=== PATIENT | female | born 1970 | race Caucasian/White ===

== ENCOUNTER 2022-08-12 19:21 | Emergency (ER) | payer OTHER, SELFPAY ==
[2022-08-12 19:22] VITALS: BP 164/99; PULSE 78; RESP 16; TEMP 36.6; O2SAT 99; BMI 28.3
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
[2022-08-12] MEDS: Ibuprofen 600 MG Tablet PO (20:30)
== END 2022-08-12 20:40 | disposition home or self-care (01) ==
PROVIDERS: Emergency Provider Emergency Medicine; Visit Provider Emergency Medicine
DX: R22.41 Localized swelling, mass and lump, right lower limb (principal); G89.29 Other chronic pain
CPT/HCPCS: 99283

== ENCOUNTER 2022-09-01 11:00 | Emergency (ER) | payer MEDICARE, SELFPAY ==
[2022-09-01 11:01] VITALS: BP 155/82; PULSE 94; RESP 18; TEMP 36.6; O2SAT 100; BMI 28.4
[2022-09-01 11:04] VITALS: BP 155/82; PULSE 94; RESP 18; TEMP 36.6; O2SAT 100
--- NOTE | 2022-09-01 11:27 | EX.ED.VIS.UR ---
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 History is limited due to this so a video staff interpreter was used on a portable tablet, for which we did not have a stand. Patient indicates that she has been ill for 2 weeks, started having cough congestion sore throat when the weather changed and things are not getting better. She denies any fevers or chills. She has been around sick persons recently including COVID and wants to make sure she does not have that in addition to strep throat. Her left ear has been hurting. Her abdomen hurts when she coughs, but she states that is chronic ever since her herniorrhaphy periumbilical, she has noted no difference is there. No vomiting or diarrhea. She is sometimes incontinent of urine when she coughs a lot. She denies any other urinary symptoms. ROS ROS ED Constitutional Constitutional ED: Denies chills or fever(s) ENT ENT ED: Reports ear pain left, nasal congestion, rhinorrhea and sore throat Cardiovascular Cardiovascular: Denies chest pain or palpitations Respiratory/Chest Respiratory/Chest: Reports cough; Denies dyspnea or sputum Gastrointestinal Gastrointestinal: Reports abdominal pain; Denies diarrhea, nausea or vomiting Genitourinary Genitourinary ED: Denies dysuria or hematuria Musculoskeletal Musculoskeletal: Denies myalgias or neck pain Integumentary Denies abscess or rash Neurologic Neurologic: Denies headache(s), paresthesias or weakness Psychiatric Psychiatric: Denies depression or suicidal thoughts Endocrine Endocrinology: Denies polydipsia or polyuria PFSH PFSH Medical History no medical history Home Medications amoxicillin 875 mg-potassium clavulanate 125 mg tablet 875 mg PO Q12H #20 TABLETS 09/01/22 [Rx Last Taken Unknown] benzonatate 100 mg capsule 200 mg PO TID PRN PRN Cough #20 CAPSULES 09/01/22 [Rx Last Taken Unknown] Allergy/AdvReac Type Severity Reaction Status Date / Time desloratadine AdvReac Other Verified 08/12/22 20:30 Social History Smoking Status: Never smoker EXAM Physical Exam Const Vital Signs: 09/01/22 11:01 09/01/22 11:04 09/01/22 11:09 Temperature 97.8 F 97.8 F Temperature Source Temporal Temporal Pulse Rate 94 94 Respiratory Rate 18 18 Respiratory Effort Normal Non-Labored Respiratory Pattern Normal Blood Pressure 155/82 H 155/82 H Blood Pressure Mean 106 106 Pulse Ox 100 100 Oxygen Delivery Method Room Air Room Air Positive well nourished, well developed and obese General Appearance ED: well developed and NAD Nutritional Appearance: obese HEENT Reports moist mucous membranes HEENT Narrative: Left TM erythematous and dulled light reflex without perforation. Right TM is normal. EAC unremarkable bilaterally. Posterior oropharyngeal erythema only. No exudates. normocephalic and atraumatic Throat: Negative for tonsils abnormal Eyes PERRL and EOMs intact bilaterally Neck no lymphadenopathy, supple and no meningeal signs Resp normal respiratory effort and clear to auscultation bilaterally Cardio no murmurs Rate: regular rate Rhythm: regular rhythm GI non-tender, non-distended and no masses Neuro oriented x3, CN's II-XII intact bilaterally and no sensory deficits noted Sensorium / Orientation: alert Motor Exam: strength 5/5 throughout Psych mental status grossly normal Skin Lesions: no lesions Rashes: no rashes MDM MDM MDM Narrative Medical decision making narrative: Patient requires antibiotics for her left otitis media. She still wanted testing done which I was happy to do, even though I discussed with her the possibility of false negative since she has been ill for 2 weeks. Swabs for strep, COVID, influenza all negative. Chest x-ray 1 view on my interpretation negative. Patient given prescription for Augmentin, as well as Tessalon Perles and given appropriate follow-up information. Radiography Diagnostic Testing: Clinical Impression(s) from Imaging Studies Chest X-Ray 09/01/22 11:41 IMPRESSION: Normal x-ray examination of the chest. Electronically Signed: Josafat Mariano MD at 12:05 EDT , Discharge Plan Triage Chief Complaint: Cold Sx ED Provider: Cristopher Macedo Dx/Rx/DC Orders Clinical Impression: Acute bronchitis, viral, Acute left otitis media Instructions: ED Otitis Media Antibiotic ..., ED URI, Viral, No Abx (Adult) Prescriptions: New benzonatate [benzonatate] 100 MG capsule 200 mg PO TID PRN PRN (Reason: Cough) Qty: 20 0RF amoxicillin-pot clavulanate [amoxicillin-pot clavulanate] 875 MG tablet 875 mg PO Q12H Qty: 20 0RF Primary Care Provider: Care Physician,No Primary Referrals: Care Physician,No Primary [Primary Care Provider] - Doctor,Your [Non-Staff] - 1 Week if not improving Activity Restrictions/Additional Instructions: The antibiotic probably want to make your cough better. It will make your ear better, maybe your sore throat, but all of this should resolve with time. You may also try over the counter allergy medication such as Zyrtec, Linda, Xyzal, they may or may not help some of your symptoms as well, and/or cold and flu medications, of which there are a lot of different brands. Disposition Disposition: Home, Self Care
--- NOTE | 2022-09-01 11:41 | RAD_ITS ---
STUDY: X-RAY CHEST REASON FOR EXAM: Female, 51 years old. cough sob TECHNIQUE: Single AP portable view of the chest. COMPARISON: None. FINDINGS: The lungs are clear and expanded. There is no demonstrated pleural abnormality. Normal size heart. Normal mediastinum and keeley. Normal visualized pulmonary arteries. Normal visualized aortic arch and descending thoracic aorta. There is a levoscoliosis of the thoracic spine. Normal visualized ribs, clavicles, and shoulders. There is no demonstrated abnormality of the visualized soft tissue structures of the upper abdomen. RAD/Chest 1 View (Portable) IMPRESSION: Normal x-ray examination of the chest. Electronically Signed: Josafat Mariano MD at 12:05 EDT ,
[2022-09-01 12:37] VITALS: BP 134/84; PULSE 80; RESP 16; O2SAT 99
--- NOTE | 2022-09-01 12:43 | CM.ED ---
SW Note SW met with patient and provided her with list of [facility] Healthcare Providers and highlighted Dr. Martines as accepting new patient. Patient had the ipad with the manager business information and patient was able to ask questions. RN in room also. Germaine MULLER
== END 2022-09-01 13:30 | disposition home or self-care (01) ==
PROVIDERS: Emergency Provider Emergency Medicine; Visit Provider Emergency Medicine
DX: J20.9 Acute bronchitis, unspecified (principal); H66.92 Otitis media, unspecified, left ear; Z20.822 Contact with and (suspected) exposure to COVID-19; E66.9 Obesity, unspecified; Z68.28 Body mass index [BMI] 28.0-28.9, adult
CPT/HCPCS: 71045; 87428; 87880; 99282

== ENCOUNTER → 2022-10-09 | Outpatient (CLI) | payer MEDICARE, SELFPAY ==
[2022-10-09 15:07] LABS: Absolute Lymphocyte Count 1.34 X10^3/uL (0.83-4.51); Absolute Neutrophil Count 2.1 X10^3/uL (2.0-7.7); Basophil# 0.01 X10^3/uL; Basophil% 0.3 % (0-1); Eosinophil# 0.03 X10^3/uL; Eosinophils% 0.8 % (0-5); Hematocrit 42.6 % (37-47); Hemoglobin 13.9 g/dL (12.0-15.0); Lymphocyte # 1.34 X10^3/ul (0.83-4.51); Lymphocyte % 35.6 % (19-41); Mean Corp Hgb Conc 32.6 g/dL (32-36); Mean Corpuscular Hgb 29.6 pg (27.0-32.0); Mean Corpuscular Volume 90.6 fL (81-99); Mean Platelet Vol. 11.1 fl (6.2-12.0); Monocyte# 0.27 X10^3/uL; Monocyte% 7.2 % (0-10); NRBC Flagged by Analyzer 0 % (0-5); Neutrophil % 55.8 % (47-70); Platelet Count 149 K/mm3 (150-450); RBC Distribution Width CV 12.8 % (11.6-14.6); RBC Distribution Width SD 42.8 fl (35.1-43.9); White Blood Count 3.8 K/mm3 (4.4-11.0)
[2022-10-09 15:36] LABS: ALB/GLOB Ratio 0.8 RATIO (0.9-2.4); AST(SGOT) 23 U/L (15-37); Alanine Aminotransfer ALT/SGPT 36 U/L (13-56); Albumin, Serum 3.3 g/dL (3.2-5.0); Alkaline Phosphatase 124 U/L (45-117); Anion Gap 7 (5-15); BUN 13 mg/dL (7-18); BUN/Creat Ratio 17.8 RATIO (10-20); Chloride 108 mmol/L (98-107); Cholesterol 130 mg/dL (200); Creatinine, Serum 0.73 mg/dL (0.55-1.02); EST Glomerular Filtration Rate 89 mL/min (>60); Est Glom Filt Rate - Afr Amer 107 mL/min (>60); Glucose 92 mg/dL (74-106); High Density Lipoprotein 55 mg/dL; Potassium 3.6 mmol/L (3.5-5.1); Protein, Total 7.3 g/dL (6.4-8.2); Sodium Level 140 mmol/L (136-145); Thyroid Stim Hormone (TSH) 3.61 uIU/mL (0.358-3.74); Triglycerides 62 mg/dL; Very Low Density Lipoprotein 12 mg/dL (5-40)
== END | disposition home or self-care (01) ==
LOC: BIMLAB 12:21
PROVIDERS: PCP Internal Medicine; Referring Provider Internal Medicine; Visit Provider Internal Medicine
DX: I10 Essential (primary) hypertension (principal); E78.2 Mixed hyperlipidemia
CPT/HCPCS: 36415; 80053; 80061; 84443; 85025

== ENCOUNTER → 2022-10-24 | Outpatient (CLI) | payer MEDICARE, SELFPAY ==
--- NOTE | 2022-10-24 18:15 | MRI_ITS ---
EXAM: MR RIGHT LOWER EXTREMITY WITHOUT INTRAVENOUS CONTRAST, FOOT CLINICAL INDICATION: Pain mid to posterior RIGHT foot, arch area x 6 months TECHNIQUE: Multiplanar and multisequence MR images of the right foot without intravenous contrast. This report was created using [employer] report [employer] technology. COMPARISON: None. FINDINGS: LIGAMENTS: MEDIAL COLLATERAL: Unremarkable. Intact. LATERAL COLLATERAL: Unremarkable. Intact. LISFRANC: Unremarkable. Intact. TENDONS: FLEXOR: Unremarkable. Intact. EXTENSOR: Unremarkable. Intact. PERONEAL: Unremarkable. Intact. TIBIALIS ANTERIOR: Unremarkable. Intact. TIBIALIS POSTERIOR: Unremarkable. Intact. MUSCLES: Unremarkable. No edema or myositis. FLUID: Unremarkable. No joint effusion. PLANTAR FASCIA: Mild thickening of the central cord of plantar aponeurosis with small amount of immediately surrounding fluid signal suggests plantar fasciitis. BONES/JOINTS: Small plantar calcaneal enthesophyte. Susceptibility artifact from postsurgical changes along the distal fibula limits assessment of adjacent tissues. Normal forefoot alignment. No fracture. No bone marrow edema. Ganglion cyst at the dorsal aspect of the first metatarsophalangeal joint (bursa joint effusion). MRI/Lower Ext/No Jt/w/o IMPRESSION: Mild thickening of the central cord of plantar aponeurosis with small amount of immediately surrounding fluid signal suggests plantar fasciitis. Ganglion cyst at the dorsal aspect of the first metatarsophalangeal joint (bursa joint effusion). No other significant internal derangement. Electronically Signed: John Diaz MD at 1:34 EST ,
== END | disposition home or self-care (01) ==
LOC: MRI 17:27
PROVIDERS: PCP Internal Medicine; Visit Provider Podiatrist
DX: M79.671 Pain in right foot (principal); M67.471 Ganglion, right ankle and foot
CPT/HCPCS: 73718

== ENCOUNTER 2022-11-22 16:59 | Emergency (ER) | payer MEDICARE, SELFPAY ==
[2022-11-22 17:00] VITALS: BP 127/116; PULSE 74; RESP 18; TEMP 36.4; O2SAT 98; BMI 31.9
--- NOTE | 2022-11-22 17:43 | CT_ITS ---
EXAMINATION : Head CT w/out contrast HISTORY : dizziness COMPARISON : None. TECHNIQUE : Multiple contiguous axial images were obtained from the skull base to the vertex without intravenous contrast. A radiation dose optimization technique was used for this scan. FINDINGS : The ventricles and sulci are normal in size. There is no evidence for acute intracranial hemorrhage, mass effect, or midline shift. There is no extra-axial fluid collection. There is normal sun-white differentiation, without CT evidence of acute ischemia or infarct. The skull base and calvarium are unremarkable. The orbits are unremarkable. The paranasal sinuses are clear. The mastoid air cells are well-aerated. The soft tissues are unremarkable. CT/Brain/Head without Contrast IMPRESSION: No acute intracranial abnormality. Electronically Signed: Russ Childress MD at 18:48 EST ,
--- NOTE | 2022-11-22 17:45 | EX.ED.DYSGE1 ---
HPI History of Present Illness Chief Complaint: Edema Informant: patient Narrative Narrative: We did use the assistance of an residential program manager for the history. At the very and the system went down. I was able to tell the patient the plan by writing it all out and she agreed to this. This history had been done. This patient states that she has several issues that have her concern today. Most of these issues have been going on for a month or 3 months. She has been having some pains in her lower back on the right. Its much better if she sits. Its worse if she gets up and walks around. No numbness tingling or weakness. It sounds like it might radiate to the side of her buttock but no further. No bowel or bladder dysfunction. No trauma. Patient also states that she sometimes has the feeling as though she is floating or walking above the ground. She will get some dizziness which is a sense of spinning or motion for her. She has never fallen. She had another episode this morning. But it is better now this afternoon and she was able to drive herself here and walk into the hospital. She wonders if there is fluids and in her ears. She states it is a difficult feeling to fully explain. Patient also states that she has gained an estimated 20 pounds in the last month or so. She tries to eat well but it is difficult as she is in a snf right now. She states sometimes her feet swell but they are not swollen now. She is not short of breath. No history of CHF. She is not sure what could cause this. [facility] Medical History Asthma History of stroke Migraine Seasonal allergies Home Medications albuterol sulfate 90 mcg/actuation aerosol inhaler 2 puff inhalation Q6H PRN 10/02/22 [History Last Taken Unknown] aspirin 81 mg chewable tablet 81 mg PO DAILY 10/02/22 [History Last Taken Unknown] atorvastatin 40 mg tablet 40 mg PO QHS 10/02/22 [History Last Taken Unknown] desloratadine 5 mg tablet 5 mg PO DAILY 10/02/22 [History Last Taken Unknown] diclofenac sodium 1 % topical gel 2 g topical ONCE 10/02/22 [History Last Taken Unknown] escitalopram oxalate 10 mg tablet 10 mg PO DAILY #30 tabs 10/02/22 [Rx Last Taken Unknown] fluticasone propionate 110 mcg/actuation HFA aerosol inhaler 2 puff inhalation BID 10/02/22 [History Last Taken Unknown] ibuprofen 600 mg tablet 600 mg PO Q8H PRN 10/02/22 [History Last Taken Unknown] lisinopril 5 mg tablet 5 mg PO DAILY 10/02/22 [History Last Taken Unknown] loratadine 10 mg tablet 10 mg PO DAILY 10/02/22 [History Last Taken Unknown] rizatriptan 10 mg tablet 10 mg PO ONCE 10/02/22 [History Last Taken Unknown] vitamin E (dl, acetate) 45 mg (100 unit) capsule 45 mg PO DAILY 10/02/22 [History Last Taken Unknown] vitamins A,C,M-pgtu-bkplyj 14,320 unit-226 mg-200 unit capsule (ICaps AREDS) 1 cap PO BID 10/02/22 [History Last Taken Unknown] Allergy/AdvReac Type Severity Reaction Status Date / Time No Known Allergies Allergy Unverified 10/02/22 13:59 Family History Mother Dementia Father Heart disease Hypertension Other Asthma Depression Surgical History H/O hernia repair History of ankle surgery Social History household members: other details: snf current occupational status: unemployed Smoking Status: Never smoker Electronic Cigarette Use: not used alcohol intake: current alcohol intake frequency: holidays/special occasions only Alcohol type: wine substance use type: does not use what type of physical activity do you participate in: none do you feel safe at home: Yes ROS ROS ED Constitutional Constitutional ED: Denies chills or fever(s) Eyes Eyes: Denies change in vision ENT ENT ED: Reports other Details: Patient is deaf. But no pressure pain in the ears ; Denies ear pain, rhinorrhea or sore throat Cardiovascular Cardiovascular: Denies chest pain or racing heartbeat Respiratory/Chest Respiratory/Chest: Denies cough or dyspnea Gastrointestinal Gastrointestinal: Denies abdominal pain, diarrhea, nausea or vomiting Genitourinary Genitourinary ED: Denies urinary frequency Musculoskeletal Musculoskeletal: Reports back pain; Denies myalgias Integumentary Denies rash Neurologic Neurologic: Reports other Details: Sense of motion intermittently. ; Denies headache(s) Psychiatric Psychiatric: Reports anxiety Endocrine Endocrinology: Denies polydipsia or polyuria Hematologic/Lymphatic Hematologic/Lymphatic: Reports other Details: When I talked with the patient about anemia she was very concerned about this but it does not sound as though she has had a history of significant anemia. She also denies black or bloody stools. ; Denies anemia Allergic/Immunologic Allergic/Immunologic ED: Denies urticaria EXAM Physical Exam Const Vital Signs: 11/22/22 17:00 11/22/22 17:14 11/22/22 18:55 Temperature 97.6 F L Temperature Source Temporal Pulse Rate 74 69 Respiratory Rate 18 16 Respiratory Effort Normal Respiratory Pattern Normal Blood Pressure 127/116 H 106/66 Blood Pressure Mean 119 79 Pulse Ox 98 98 Oxygen Delivery Method Room Air Room Air Positive well nourished and well developed General Appearance ED: well developed and NAD; Negative for cyanotic, diaphoretic or pallor HEENT Reports moist mucous membranes HEENT Narrative: No pallor. Eyes General Eye ED: Negative for pale conjunctiva or scleral icterus Neck no JVD Resp normal respiratory effort and clear to auscultation bilaterally Auscultation: Negative for rales, rhonchi or wheezes Cardio regular rate, regular rhythm and no murmurs GI normal to inspection, nondistended, normoactive bowel sounds and non-tender Narrative: No CVA tenderness. Back/Spine no CVA tenderness Extremity Extremity Narrative: There is no edema. We even take off her shoes and socks and there is no edema or pitting on the feet Neuro Neuro Narrative: Patient awake alert appropriate oriented x3. She has excellent use of her hands and coordination as she does use [place] Island[place] sign language with the residential program manager. No discoordination at this time. But her sense of dizziness and motion is now better. Psych mental status grossly normal Skin no rashes or lesions noted General Skin Exam: Negative for jaundice or pallor MDM MDM MDM Narrative Medical decision making narrative: Due to the patient's multiple complaints, we did pursue work-up here. My independent trepidation of her single view chest x-ray shows no sign of cardiomegaly or congestive heart failure. No infiltrate or other acute process. Final reading by radiology is also negative. My independent interpretation of CT scan of the head shows normal structure without sign of bleeding or mass. No abnormal atrophy. Final radiology reading is also negative. Patient's blood work showed mildly low white count which is not new. Hemoglobin platelets are normal. Electrolytes show no marked abnormalities. Nonspecific elevation of chloride. Normal kidney function. Normal beta natruretic peptide. Patient has a normal exam. I do not have an explanation for her multiple food of symptoms. But I think she is safe for discharge. I have no clinical indication exam findings or acute suspicion of stroke or other acute disease that would require admission. I think she is safe and appropriate for discharge. Lab Data Labs: Laboratory Results - last 24 hr 11/22/22 11/22/22 11/22/22 17:57 17:57 17:57 WBC 4.3 L RBC 5.02 Hgb 14.7 Hct 44.2 MCV 88.0 MCH 29.3 MCHC 33.3 RDW Std Deviation 38.8 RDW Coeff of Malathi 12.0 Plt Count 176 MPV 10.0 Immature Gran % (Auto) 0.200 Neut % (Auto) 72.5 H Lymph % (Auto) 20.8 Navarro % (Auto) 6.1 Eos % (Auto) 0.2 Baso % (Auto) 0.2 Absolute Neuts (auto) 3.1 Absolute Lymphs (auto) 0.89 Nucleated RBC % 0 Sodium 140 Potassium 3.9 Chloride 109 H Carbon Dioxide 29.0 Anion Gap 2 L BUN 14 Creatinine 0.84 Estim Creat Clear Calc 58.45 Est GFR (MDRD) Af Amer 92 Est GFR (MDRD) Non-Af 76 BUN/Creatinine Ratio 16.7 Glucose 106 Calcium 9.2 B-Natriuretic Peptide 30.2 Radiography Diagnostic Testing: Clinical Impression(s) from Imaging Studies Brain CT 11/22/22 17:43 IMPRESSION: No acute intracranial abnormality. Electronically Signed: Russ Childress MD at 18:48 EST , Chest X-Ray 11/22/22 18:05 IMPRESSION: No acute radiographic abnormalities. Electronically Signed: Russ Childress MD at 18:49 EST , Discharge Plan Triage Chief Complaint: Edema ED Provider: Patel Adam Dx/Rx/DC Orders Clinical Impression: Intermittent vertigo, Right low back pain, Weight gain Instructions: ED Vertigo, Unspecified Prescriptions: No Action rizatriptan 10 mg tablet 10 mg PO ONCE Rx Instructions: as a single dose aspirin 81 mg tablet,chewable 81 mg PO DAILY lisinopril 5 mg tablet 5 mg PO DAILY atorvastatin 40 mg tablet 40 mg PO QHS vitamin E (dl, acetate) 45 mg (100 unit) capsule 45 mg PO DAILY desloratadine 5 mg tablet 5 mg PO DAILY ICaps AREDS [phone] [id number] capsule 1 cap PO BID fluticasone propionate 110 mcg/actuation HFA aerosol inhaler 2 puff inhalation BID albuterol sulfate 90 mcg/actuation HFA aerosol inhaler 2 puff inhalation Q6H PRN loratadine 10 mg tablet 10 mg PO DAILY ibuprofen 600 mg tablet 600 mg PO Q8H PRN diclofenac sodium 1 % gel 2 g topical ONCE Rx Instructions: apply to single elbow, wrist or hand; for hand includes palm/fingers/back of hand escitalopram oxalate 10 mg tablet 10 mg PO DAILY Qty: 30 5RF Primary Care Provider: Carmina Redd Referrals: Carmina Redd MD [Primary Care Provider] - 3-5 Days Disposition Disposition: Home, Self Care
--- NOTE | 2022-11-22 18:05 | RAD_ITS ---
INDICATION: ?CHF EXAMINATION/TECHNIQUE: X-RAY - XR Chest 1 View COMPARISON: 09/01/2022. FINDINGS: The lungs are clear. The cardiomediastinal silhouette is unremarkable. No pleural effusion or pneumothorax. No acute osseous abnormalities. RAD/Chest 1 View (Portable) IMPRESSION: No acute radiographic abnormalities. Electronically Signed: Russ Childress MD at 18:49 EST ,
[2022-11-22 18:20] LABS: Anion Gap 2 (5-15); BUN 14 mg/dL (7-18); BUN/Creat Ratio 16.7 RATIO (10-20); Calcium,Total 9.2 mg/dL (8.5-10.1); Chloride 109 mmol/L (98-107); Creatinine, Serum 0.84 mg/dL (0.55-1.02); EST Glomerular Filtration Rate 76 mL/min (>60); Est Glom Filt Rate - Afr Amer 92 mL/min (>60); Estimated Creatinine Clearance 58.45 ml/min; Glucose 106 mg/dL (74-106); Potassium 3.9 mmol/L (3.5-5.1); Sodium Level 140 mmol/L (136-145)
[2022-11-22 18:23] LABS: Absolute Lymphocyte Count 0.89 X10^3/uL (0.83-4.51); Absolute Neutrophil Count 3.1 X10^3/uL (2.0-7.7); Basophil# 0.01 X10^3/uL; Basophil% 0.2 % (0-1); Eosinophil# 0.01 X10^3/uL; Eosinophils% 0.2 % (0-5); Hematocrit 44.2 % (37-47); Hemoglobin 14.7 g/dL (12.0-15.0); Lymphocyte # 0.89 X10^3/ul (0.83-4.51); Lymphocyte % 20.8 % (19-41); Mean Corp Hgb Conc 33.3 g/dL (32-36); Mean Corpuscular Hgb 29.3 pg (27.0-32.0); Monocyte# 0.26 X10^3/uL; Monocyte% 6.1 % (0-10); NRBC Flagged by Analyzer 0 % (0-5); Neutrophil % 72.5 % (47-70); Platelet Count 176 K/mm3 (150-450); RBC Distribution Width SD 38.8 fl (35.1-43.9); Red Blood Count 5.02 M/mm3 (4.2-5.4); White Blood Count 4.3 K/mm3 (4.4-11.0)
[2022-11-22 18:46] LABS: BNP,B-Type NATRIURETIC PEPTIDE 30.2 pg/mL (0-100)
[2022-11-22 18:55] VITALS: BP 106/66; PULSE 69; RESP 16; O2SAT 98
[2022-11-22 20:42] LABS: Mucous, Urine 0 SEEN /hpf (<or=2+); Red Blood Cells-Urine 0 SEEN /hpf (0-5)
[2022-11-22 20:47] LABS: Color, Urine Yellow (Yellow); Glucose, Dipstick Normal (Normal); Ketone-Dipstick Negative (Negative); Leukocyte Esterase-Dipstick 100 /ul (Negative); Nitrite-Dipstick Positive (Negative); Occult Blood-Urine 10 /ul (Negative); Protein-Dipstick 30 mg/dl (Negative); Urine Bilirubin Dipstick Negative (Negative); Urine Clarity Clear (Clear); Urine Urobilinogen 1 mg/dl (Normal)
[2022-11-22 20:56] LABS: AST(SGOT) 24 U/L (15-37); Alanine Aminotransfer ALT/SGPT 38 U/L (13-56); Albumin, Serum 3.4 g/dL (3.2-5.0); Alkaline Phosphatase 94 U/L (45-117); Bilirubin, Direct 0.21 mg/dL (0.00-0.30); Globulin 4.1 g/dL (2.2-4.2); Protein, Total 7.5 g/dL (6.4-8.2)
[2022-11-22 20:59] LABS: Bacteria 1+ /hpf (None Seen); Squamous Epithelial Cells - UA 0-5 SEEN /hpf (5-10); White Blood Cells 0-5 SEEN /hpf (0-5)
== END 2022-11-22 21:40 | disposition home or self-care (01) ==
PROVIDERS: Emergency Provider Emergency Medicine; PCP Internal Medicine; Visit Provider Emergency Medicine
DX: R42 Dizziness and giddiness (principal); M54.50 Low back pain, unspecified; R63.5 Abnormal weight gain; Z86.73 Personal history of transient ischemic attack (TIA), and cerebral infarction without residual deficits
CPT/HCPCS: 70450; 71045; 80048; 80076; 81001; 83880; 85025; 87086; 87088; 99285; A4216

== ENCOUNTER → 2023-01-10 | Outpatient (CLI) | payer MEDICARE, SELFPAY ==
[2023-01-10 17:23] LABS: Absolute Lymphocyte Count 1.98 X10^3/uL (0.83-4.51); Absolute Neutrophil Count 2.8 X10^3/uL (2.0-7.7); Basophil# 0.01 X10^3/uL; Basophil% 0.2 % (0-1); Eosinophil# 0.02 X10^3/uL; Eosinophils% 0.4 % (0-5); Hematocrit 44.5 % (37-47); Hemoglobin 14.3 g/dL (12.0-15.0); Lymphocyte # 1.98 X10^3/ul (0.83-4.51); Lymphocyte % 37.9 % (19-41); Mean Corp Hgb Conc 32.1 g/dL (32-36); Mean Corpuscular Hgb 28.3 pg (27.0-32.0); Mean Corpuscular Volume 87.9 fL (81-99); Mean Platelet Vol. 10.8 fl (6.2-12.0); Monocyte# 0.37 X10^3/uL; Monocyte% 7.1 % (0-10); NRBC Flagged by Analyzer 0 % (0-5); Neutrophil # 2.83 X10^3/uL (2.7-7.7); Neutrophil % 54.2 % (47-70); Platelet Count 184 K/mm3 (150-450); RBC Distribution Width CV 12.5 % (11.6-14.6); RBC Distribution Width SD 40.1 fl (35.1-43.9); Red Blood Count 5.06 M/mm3 (4.2-5.4); White Blood Count 5.2 K/mm3 (4.4-11.0)
[2023-01-10 17:49] LABS: AST(SGOT) 40 U/L (15-37); Alanine Aminotransfer ALT/SGPT 52 U/L (13-56); Albumin, Serum 3.9 g/dL (3.2-5.0); Alkaline Phosphatase 116 U/L (45-117); Anion Gap 6 (5-15); BUN 16 mg/dL (7-18); BUN/Creat Ratio 17.7 RATIO (10-20); Calcium,Total 10.1 mg/dL (8.5-10.1); Chloride 106 mmol/L (98-107); EST Glomerular Filtration Rate 69 mL/min (>60); Est Glom Filt Rate - Afr Amer 84 mL/min (>60); Globulin 4.1 g/dL (2.2-4.2); Glucose 95 mg/dL (74-106); Potassium 4.1 mmol/L (3.5-5.1); Sodium Level 138 mmol/L (136-145); Thyroid Stim Hormone (TSH) 1.67 uIU/mL (0.358-3.74)
[2023-01-10 18:20] LABS: Hepatitis C Antibody Non-Reactive (Nonreactive)
== END | disposition home or self-care (01) ==
PROVIDERS: PCP Internal Medicine; Visit Provider Family Medicine Geriatric Medicine
DX: I10 Essential (primary) hypertension (principal); Z13.89 Encounter for screening for other disorder
CPT/HCPCS: 36415; 80053; 84443; 85025; 86803

== ENCOUNTER → 2023-04-04 | Outpatient (CLI) | payer MEDICARE, SELFPAY ==
[2023-04-04 16:42] LABS: Absolute Lymphocyte Count 1.33 X10^3/uL (0.83-4.51); Absolute Neutrophil Count 3.1 X10^3/uL (2.0-7.7); Basophil# 0.01 X10^3/uL; Basophil% 0.2 % (0-1); Eosinophil# 0.04 X10^3/uL; Eosinophils% 0.8 % (0-5); Hematocrit 40.6 % (37-47); Lymphocyte # 1.33 X10^3/ul (0.83-4.51); Lymphocyte % 27.7 % (19-41); Mean Corpuscular Hgb 29.4 pg (27.0-32.0); Mean Corpuscular Volume 91.9 fL (81-99); Mean Platelet Vol. 10.7 fl (6.2-12.0); Monocyte# 0.35 X10^3/uL; Monocyte% 7.3 % (0-10); NRBC Flagged by Analyzer 0 % (0-5); Neutrophil # 3.05 X10^3/uL (2.7-7.7); Neutrophil % 63.6 % (47-70); Platelet Count 174 K/mm3 (150-450); RBC Distribution Width CV 12.8 % (11.6-14.6); RBC Distribution Width SD 42.5 fl (35.1-43.9); Red Blood Count 4.42 M/mm3 (4.2-5.4); White Blood Count 4.8 K/mm3 (4.4-11.0)
[2023-04-04 17:07] LABS: ALB/GLOB Ratio 0.9 RATIO (0.9-2.4); AST(SGOT) 36 U/L (15-37); Alanine Aminotransfer ALT/SGPT 52 U/L (13-56); Albumin, Serum 3.5 g/dL (3.2-5.0); Alkaline Phosphatase 127 U/L (45-117); Anion Gap 5 (5-15); BUN 15 mg/dL (7-18); BUN/Creat Ratio 20.5 RATIO (10-20); Calcium,Total 8.7 mg/dL (8.5-10.1); Chloride 109 mmol/L (98-107); Creatinine, Serum 0.73 mg/dL (0.55-1.02); EST Glomerular Filtration Rate 88 mL/min (>60); Est Glom Filt Rate - Afr Amer 107 mL/min (>60); Ferritin 37 ng/mL (8-252); Globulin 3.7 g/dL (2.2-4.2); Glucose 83 mg/dL (74-106); Iron 55 ug/dL (50-170); Iron Binding Capacity,Total 352 ug/dL (250-450); PERCENT IRON SATURATION 15.6 % (15.0-55.0); Potassium 3.7 mmol/L (3.5-5.1); Protein, Total 7.2 g/dL (6.4-8.2); Sodium Level 142 mmol/L (136-145); Thyroid Stim Hormone (TSH) 1.75 uIU/mL (0.358-3.74)
== END | disposition home or self-care (01) ==
LOC: POLAB3 16:08
PROVIDERS: PCP Internal Medicine; Visit Provider Family Medicine Geriatric Medicine
DX: E83.119 Hemochromatosis, unspecified (principal); R53.83 Other fatigue
CPT/HCPCS: 36415; 80053; 82728; 83540; 83550; 84443; 85025

== ENCOUNTER → 2023-05-11 | Outpatient (CLI) | payer MEDICARE, SELFPAY ==
[2023-05-11 12:16] LABS: Absolute Lymphocyte Count 1.18 X10^3/uL (0.83-4.51); Absolute Neutrophil Count 3.4 X10^3/uL (2.0-7.7); Basophil# 0.01 X10^3/uL; Basophil% 0.2 % (0-1); Hematocrit 45.3 % (37-47); Hemoglobin 14.5 g/dL (12.0-15.0); Lymphocyte # 1.18 X10^3/ul (0.83-4.51); Lymphocyte % 23.4 % (19-41); Mean Corpuscular Hgb 29.1 pg (27.0-32.0); Mean Corpuscular Volume 90.8 fL (81-99); Mean Platelet Vol. 10.2 fl (6.2-12.0); Monocyte# 0.31 X10^3/uL; Monocyte% 6.2 % (0-10); NRBC Flagged by Analyzer 0 % (0-5); Neutrophil # 3.42 X10^3/uL (2.7-7.7); Neutrophil % 67.8 % (47-70); Platelet Count 173 K/mm3 (150-450); RBC Distribution Width CV 12.5 % (11.6-14.6); RBC Distribution Width SD 41.1 fl (35.1-43.9); RET-HE 32.8 pg (30-35); Red Blood Count 4.99 M/mm3 (4.2-5.4); Reticulocyte Count 1.74 % (0.5-1.5)
[2023-05-11 12:19] LABS: Erythrocyte Sedimentation Rate 8 mm/hr (0-30)
[2023-05-11 12:23] LABS: Prothrombin Time (Protime)PT. 12.6 SECONDS (11.7-14.9)
[2023-05-11 13:08] LABS: Vitamin B12 431 pg/mL (211-911)
[2023-05-11 13:43] LABS: Amylase 146 U/L (25-115); CRP < 2.90 mg/L (0.0-3.0); Ferritin 43 ng/mL (8-252); Free T3 2.8 pg/mL (2.18-3.98); Iron 61 ug/dL (50-170); Iron Binding Capacity,Total 392 ug/dL (250-450); LDH 206 U/L (84-246); Lipase 200 U/L (13-75); Thyroid Stim Hormone (TSH) 2.55 uIU/mL (0.358-3.74)
[2023-05-15 13:07] LABS: Anti-Centromere B Ab <0.2 AI (0.0-0.9); Anti-Chromatin <0.2 AI (0.0-0.9); Anti-Jo <0.2 AI (0.0-0.9); Anti-Mitochondrial AB <20.0 Units (0.0-20.0); Anti-Scleroderma-70 AB <0.2 AI (0.0-0.9); Anti-dsDNA Ab <1 IU/mL (0-9); RNP Ab 0.2 AI (0.0-0.9); SJOGREN'S Anti-SS-A test < 0.2 AI (0.0-0.9); SJOGREN'S Anti-SS-B test < 0.2 AI (0.0-0.9); Smith Ab <0.2 AI (0.0-0.9); Vitamin D 1,25-Dihydroxy 39.2 pg/mL (24.8-81.5)
[2023-05-16 15:07] LABS: Albumin 3.6 g/dL (2.9-4.4); Alpha-1-Globulins 0.2 g/dL (0.0-0.4); Alpha-2-Globulins 0.7 g/dL (0.4-1.0); Angiotensin Convert Enzyme < 15 U/L (14-82); Anti-Smooth Muscle ABS 7 Units (0-19); Cytoplasmic Ab (C-ANCA) <1:20 titer (Neg:<1:20); Endomysial Antibody IgA Negative (Negative); Gamma Globulin 1.2 g/dL (0.4-1.8); HEPATITIS B SURFACE AG Negative (Negative); Haptoglobin 95 mg/dL (33-346); Hep C Antibodies Non Reactive (Non Reactive); Hepatitis A IgM Antibody Negative (Negative); Hepatitis B Core AB IgM Negative (Negative); Immunoglobulin A 334 mg/dL (87-352); Immunoglobulin G 1279 mg/dL (586-1602); Immunoglobulin M 144 mg/dL (26-217); Perinuclear Ab (P-ANCA) <1:20 titer (Neg:<1:20); t-Transglutaminase IgA <2 U/mL (0-3)
== END | disposition home or self-care (01) ==
PROVIDERS: PCP Family Medicine Geriatric Medicine; Referring Provider Internal Medicine Gastroenterology; Visit Provider Internal Medicine Gastroenterology
DX: K74.60 Unspecified cirrhosis of liver (principal); E78.2 Mixed hyperlipidemia; M79.671 Pain in right foot; G89.29 Other chronic pain; R10.11 Right upper quadrant pain
CPT/HCPCS: 36415; 80074; 82150; 82164; 82607; 82652; 82728; 82784; 83010; 83516; 83540; 83550; 83615; 83690; 84165; 84439; 84443; 84481; 85025; 85045; 85610; 85652; 86140; 86225; 86235; 86255; 86256; 86334

== ENCOUNTER → 2023-06-22 | Outpatient (CLI) | payer MEDICARE, SELFPAY ==
--- NOTE | 2023-06-22 07:59 | CT_ITS ---
STUDY: CT ABDOMEN AND PELVIS WITH CONTRAST REASON FOR EXAM: Female, 52 years old. Cirrhosis RADIATION DOSAGE (If Supplied By Facility): CTDIvol = ( 16.60 ) mGy, DLP = ( 575.06 ) mGycm TECHNIQUE: Transaxial images were obtained from the dome of the diaphragm to the symphysis pubis with oral contrast. Oral and amp; IV Redi-CAT and amp; 100mL Isovue-300 was administered. Sagittal and coronal images were reconstructed. Individualized dose optimization techniques were used for this CT. COMPARISON: None. FINDINGS: The visualized lung bases are unremarkable. The visualized portions of the heart are within normal limits. There is a diffuse contour abnormality of the liver consistent with cirrhotic changes. There is a 2.3 cm x 1.9 cm heterogeneously enhancing nodule in the posterior medial aspect of the right lobe of the liver. This may represent an hemangioma. Correlation with ultrasound is recommended for further evaluation. Normal gallbladder and extrahepatic biliary system. Normal spleen. Normal pancreas. Normal bilateral adrenal glands. Normal right kidney. Normal left kidney. Normal visualized stomach. Normal small intestine. Normal colon. The appendix is visualized and appears normal. There is diffuse atherosclerotic calcification of the abdominal aorta, without a demonstrated aneurysm. Normal inferior vena cava. Normal retroperitoneum. Normal urinary bladder. There is absence of the uterus consistent with a prior hysterectomy. Diastases of the rectus abdominal muscle. This space narrowing at the L4-L5 level. CT/Abdomen/Pelvis WITH Contrast IMPRESSION: Contour abnormality of the liver suggestive of cirrhosis. 2.3 cm x 1.9 cm heterogeneously enhancing nodule in the posterior medial aspect of the right lobe of the liver. This most likely represents an hemangioma. Correlation with ultrasound is recommended. Electronically Signed: Reddy Neff MD at 10:24 EDT ,
[2023-06-22 08:52] LABS: CREATININE FINGERSTICK < 0.9 mg/dL (0.55-1.02); EGFR FINGERSTICK > 60.0000 mL/min (>60)
== END | disposition home or self-care (01) ==
LOC: US 07:57
PROVIDERS: PCP Family Medicine Geriatric Medicine; Referring Provider Internal Medicine Gastroenterology; Visit Provider Internal Medicine Gastroenterology
DX: K74.60 Unspecified cirrhosis of liver (principal)
CPT/HCPCS: 74177; Q9967

== ENCOUNTER → 2023-07-13 | Outpatient (CLI) | payer MEDICARE, SELFPAY ==
--- NOTE | 2023-07-13 09:16 | US_ITS ---
STUDY: ABDOMINAL ULTRASOUND - RIGHT UPPER QUADRANT REASON FOR VISIT: Female, 52 years old Liver Cirrhosis -- f/u CT . Limited examination. TECHNIQUE: Ultrasound evaluation of the right upper quadrant was performed with real-time and static dempsey-scale imaging. TECHNICAL QUALITY: Limited. Examination limited by bowel gas and patient''s condition. COMPARISON: None. FINDINGS: Liver: The liver measures 13.8 cm. There is increased echogenicity consistent with fatty infiltration. The bile ducts are within normal limits. There is hepatic color flow. The direction of portal flow is hepatopetal. There is no demonstrated mass lesion. Gallbladder: Normal distended gallbladder. The gallbladder wall measures 2.2 mm. There is a negative sonographic Small''s sign. There is no pericholecystic fluid. There are no gallstones. Common Bile Duct (C.B.D.): The common bile duct measures 3.6 mm. Pancreas: Normal size of the head, body and tail of the pancreas. There is normal echogenicity of the pancreas. There is no demonstrated pancreatic mass or cyst. Right Kidney: Normal size of the right kidney. The right kidney measures 10.7 cm x 4.7 cm by 4.6 cm. Normal renal cortex. The right cortex measures 1.4 cm. There is no demonstrated renal mass or cyst. There is no right hydronephrosis. US/Abdomen Limited IMPRESSION: Limited study. Fatty infiltration of the liver. Electronically Signed: Reddy Neff MD at 14:30 EDT ,
== END | disposition home or self-care (01) ==
LOC: US 09:15
PROVIDERS: PCP Family Medicine Geriatric Medicine; Referring Provider Internal Medicine Gastroenterology; Visit Provider Internal Medicine Gastroenterology
DX: K74.60 Unspecified cirrhosis of liver (principal)
CPT/HCPCS: 76705

== ENCOUNTER → 2023-08-10 | Outpatient (CLI) | payer MEDICARE, SELFPAY ==
[2023-08-10 11:40] LABS: Absolute Lymphocyte Count 1.33 X10^3/uL (0.83-4.51); Absolute Neutrophil Count 2.5 X10^3/uL (2.0-7.7); Basophil# 0.01 X10^3/uL; Basophil% 0.2 % (0-1); Eosinophil# 0.05 X10^3/uL; Eosinophils% 1.2 % (0-5); Hematocrit 42.2 % (37-47); Hemoglobin 13.5 g/dL (12.0-15.0); Lymphocyte # 1.33 X10^3/ul (0.83-4.51); Lymphocyte % 31.7 % (19-41); Mean Corpuscular Hgb 28.1 pg (27.0-32.0); Mean Corpuscular Volume 87.9 fL (81-99); Mean Platelet Vol. 10.2 fl (6.2-12.0); Monocyte# 0.34 X10^3/uL; Monocyte% 8.1 % (0-10); NRBC Flagged by Analyzer 0 % (0-5); Neutrophil # 2.45 X10^3/uL (2.7-7.7); Neutrophil % 58.3 % (47-70); Platelet Count 156 K/mm3 (150-450); RBC Distribution Width CV 12.6 % (11.6-14.6); RBC Distribution Width SD 40.6 fl (35.1-43.9); White Blood Count 4.2 K/mm3 (4.4-11.0)
[2023-08-10 12:04] LABS: ALB/GLOB Ratio 0.9 RATIO (0.9-2.4); AST(SGOT) 28 U/L (15-37); Alanine Aminotransfer ALT/SGPT 60 U/L (13-56); Albumin, Serum 3.4 g/dL (3.2-5.0); Alkaline Phosphatase 133 U/L (45-117); Anion Gap 1 (5-15); BUN 13 mg/dL (7-18); BUN/Creat Ratio 18.7 RATIO (10-20); Calcium,Total 8.9 mg/dL (8.5-10.1); Chloride 111 mmol/L (98-107); Cholesterol 115 mg/dL (200); EST Glomerular Filtration Rate 94 mL/min (>60); Est Glom Filt Rate - Afr Amer 113 mL/min (>60); Globulin 3.8 g/dL (2.2-4.2); Glucose 98 mg/dL (74-106); High Density Lipoprotein 50 mg/dL; Potassium 3.7 mmol/L (3.5-5.1); Protein, Total 7.2 g/dL (6.4-8.2); Sodium Level 141 mmol/L (136-145); Triglycerides 65 mg/dL; Very Low Density Lipoprotein 13 mg/dL (5-40)
== END | disposition home or self-care (01) ==
LOC: POLAB3 10:05
PROVIDERS: PCP Family Medicine Geriatric Medicine; Visit Provider Family Medicine Geriatric Medicine
DX: I10 Essential (primary) hypertension (principal); E78.5 Hyperlipidemia, unspecified
CPT/HCPCS: 36415; 80053; 80061; 84443; 85025

== ENCOUNTER → 2023-09-04 | Outpatient (CLI) | payer MEDICARE, SELFPAY | END | disposition home or self-care (01) | LOC: PSN 14:01 | PROVIDERS: PCP Family Medicine Geriatric Medicine; Referring Provider Family Medicine Geriatric Medicine; Visit Provider Family Medicine Geriatric Medicine | DX: R68.83 Chills (without fever) (principal) | CPT/HCPCS: 87635; 87804; 87807; C9803 ==

== ENCOUNTER 2023-09-21 13:02 | Observation (INO) | payer MEDICARE, SELFPAY ==
[2023-09-21 13:03] VITALS: BP 145/77; PULSE 81; RESP 16; TEMP 35.9; O2SAT 100
[2023-09-21 13:05] VITALS: BMI 34.0
[2023-09-21 13:48] VITALS: BMI 34.0
--- NOTE | 2023-09-21 13:48 | CT_ITS ---
STUDY: CT BRAIN WITHOUT CONTRAST REASON FOR EXAM: Female, 52 years old. Neuro deficit, acute, stroke suspected RADIATION DOSAGE (If Supplied By Facility): CTDIvol = ( 44.99 ) mGy, DLP = ( 745.49 ) mGycm TECHNIQUE: Transaxial CT imaging of the brain was performed without administration of intravenous contrast material. Individualized dose optimization techniques were used for this CT. COMPARISON: Comparison is made with prior study November 22, 2022. FINDINGS: Normal soft tissue structures. Normal calvarium. Normal size ventricles and extra-axial spaces for the patient''s age. There are areas of decreased attenuation within the white matter tracts of the supratentorial brain, consistent with microvascular disease changes. Normal basal ganglia and thalami. Normal brainstem. Normal cerebellum. There is no intracranial hemorrhage. There are no findings of an acute ischemic infarction. Normal visualized paranasal sinuses. CT/Brain/Head without Contrast IMPRESSION: Decreased attenuation in the white matter tracts of the supratentorial brain suggest microvascular disease. Electronically Signed: Reddy Neff MD at 15:26 EST ,
--- NOTE | 2023-09-21 13:48 | EKG12_ITS ---
Test Reason : NEURO Blood Pressure : / mmHG Vent. Rate : 070 BPM Atrial Rate : 070 BPM P-R Int : 162 ms QRS Dur : 100 ms QT Int : 384 ms P-R-T Axes : 046 -24 040 degrees QTc Int : 414 ms Normal sinus rhythm Moderate voltage criteria for LVH, may be normal variant ( R in aVL , [place] product ) Septal infarct , age undetermined Abnormal ECG Confirmed by YAJAIRA CANTU, TAYO ([id number]), food expeditor PAYTON RAMOS ([id number]) on 09/24/2023 8:27:50 AM Referred By: Confirmed By:ELODIA GATES MD
--- NOTE | 2023-09-21 13:49 | ED.VIS.STROK ---
HPI History of Present Illness Chief Complaint: GI Bleed Informant: patient Limited: other (Patient is deaf mute.) Onset/Context/Timing Onset: Weeks (Intermittently 1 to 2 weeks ago. More persistent starting yesterday morning.) Context: Sudden Onset Timing: Continuous Quality and Location: Positive for Right Arm Parasthesia and Right Leg Parasthesia Current Severity: Mild Maximum Severity: Moderate Worsened by: Nothing Relieved by: Nothing Associated Symptoms Associated Symptoms: Positive for Nausea and Vomiting (Several days ago); Negative for Headache or Chest Pain Narrative Narrative: Patient is a 51-year-old woman with prior history of stroke, cirrhosis of the liver, GERD, mixed hyperlipidemia, essential hypertension and anxiety and depression. She presents with symptoms of numbness right side of her body that were initially intermittent 1 to 2 weeks ago. They became more persistent. Yesterday morning she had persistent numbness on the right side. A day or 2 prior to that she had double vision with problems with balance and coordination and incessant vomiting. She denied headache. She denied blurred vision. She denied decreased hearing or ringing or ears. She denied neck pain. She denied cardiac or respiratory symptoms. She denies hematemesis or melena. She states her stool is dark. Apparently she is scheduled for a endoscopy. She denies urologic symptoms. She reports persistent numbness right side. Prior similar symptoms: Yes Recent Illness/Hospitalization: No [facility] Medical History Asthma Carotid artery stenosis History of stroke Liver cirrhosis Migraine Right cervical radiculopathy Seasonal allergies Home Medications albuterol sulfate 90 mcg/actuation aerosol inhaler 2 puff inhalation Q6H PRN 10/02/22 [History Last Taken Unknown] aspirin 81 mg chewable tablet 81 mg PO DAILY 10/02/22 [History Last Taken Unknown] atorvastatin 40 mg tablet 40 mg PO QHS 10/02/22 [History Last Taken Unknown] desloratadine 5 mg tablet 5 mg PO DAILY 10/02/22 [History Last Taken Unknown] escitalopram oxalate 10 mg tablet 10 mg PO DAILY #30 tabs 10/02/22 [Rx Last Taken Unknown] ibuprofen 600 mg tablet 600 mg PO Q8H PRN 10/02/22 [History Last Taken Unknown] lisinopril 5 mg tablet 5 mg PO DAILY 10/02/22 [History Last Taken Unknown] vitamin E (dl, acetate) 45 mg (100 unit) capsule 45 mg PO DAILY 10/02/22 [History Last Taken Unknown] vitamins A,C,A-lrdk-ljvgyu 4,296 mcg-226 mg-90 mg capsule (ICaps AREDS) 1 cap PO BID 10/02/22 [History Last Taken Unknown] cyclobenzaprine 5 mg tablet 5 mg PO BID PRN pain #20 tabs 11/27/22 [Rx Last Taken Unknown] fluticasone propionate 110 mcg/actuation HFA aerosol inhaler 2 puff inhalation BID #12 grams 11/27/22 [Rx Last Taken Unknown] rizatriptan 10 mg tablet 10 mg PO ONCE #10 tabs 11/27/22 [Rx Last Taken Unknown] peg 3350-electrolytes 236 gram-22.74 gram-6.74 gram-5.86 gram solution (Golytely) 240 ml PO Q10M #4,000 mL 09/12/23 [Rx Last Taken Unknown] Allergy/AdvReac Type Severity Reaction Status Date / Time No Known Allergies Allergy Unverified 09/11/23 15:18 Family History Mother Dementia Father Heart disease Hypertension Other Asthma Depression Surgical History H/O hernia repair History of ankle surgery Social History household members: other details: intermediate current occupational status: unemployed Smoking Status: Never smoker Electronic Cigarette Use: not used alcohol intake: current alcohol intake frequency: holidays/special occasions only Alcohol type: wine substance use type: does not use and marijuana what type of physical activity do you participate in: none do you feel safe at home: Yes ROS ROS ED Constitutional Constitutional ED: Denies chills, fever(s), subjective, sweats or weakness Eyes Eyes: Reports diplopia; Denies blurry vision or change in vision ENT ENT ED: Denies ear pain, rhinorrhea or sore throat Cardiovascular Cardiovascular: Denies chest pain, palpitations, paroxysmal nocturnal dyspnea or racing heartbeat Respiratory/Chest Respiratory/Chest: Denies cough, dyspnea, dyspnea on exertion or paroxysmal nocturnal dyspnea Gastrointestinal Gastrointestinal: Denies abdominal pain, constipation, diarrhea, melena, nausea or vomiting Genitourinary Genitourinary ED: Denies dysuria, hematuria or urinary frequency Musculoskeletal Musculoskeletal: Denies arthralgias, back pain, myalgias or neck pain Integumentary Denies rash Neurologic Neurologic: Reports paresthesias; Denies headache(s) or weakness Psychiatric Psychiatric: Denies anxiety or depression Endocrine Endocrinology: Denies polydipsia, polyphagia or polyuria Hematologic/Lymphatic Hematologic/Lymphatic: Denies easy bleeding or easy bruising EXAM Physical Exam Const Vital Signs: 09/21/23 13:03 09/21/23 13:48 Temperature 96.7 F L Temperature Source Temporal Pulse Rate 81 Respiratory Rate 16 Blood Pressure 145/77 H Blood Pressure Mean 99 Pulse Ox 100 Oxygen Delivery Method Room Air Room Air Positive well nourished, well developed and obese General Appearance ED: well developed and NAD Nutritional Appearance: obese HEENT Reports TM's clear and moist mucous membranes atraumatic Tympanic Membrane ED: Yes TM's clear Eyes PERRL and EOMs intact bilaterally Eyes Narrative: There is no nystagmus. There is no visual field cut. General Eye ED: Negative for pale conjunctiva or scleral icterus Neck no lymphadenopathy, supple and no JVD Chest Wall inspection of chest normal Resp normal respiratory effort and clear to auscultation bilaterally Cardio no murmurs Rate: regular rate Rhythm: regular rhythm Heart Sounds: S1 normal and S2 normal GI normal to inspection, nondistended, normoactive bowel sounds, soft to palpation, non-tender, non-distended and no masses Back/Spine no CVA tenderness Extremity normal to inspection General Extremety ED: Negative for deformity, edema or tenderness General Extremity: Negative for deformity or edema Neuro oriented x3, CN's II-XII intact bilaterally and No no sensory deficits noted [place] Coma Scale: document GCS findings Spontaneous Extensor Response Sensorium / Orientation: alert Psych mental status grossly normal Skin no wounds General Skin Exam: Negative for jaundice Lesions: no lesions Rashes: no rashes NIHSS NIHSS Initial: 1a Level of Consciousness: 0 1b LOC Questions (Score 2 if aphasic/stupor): 0 1c LOC Commands (Only score 1st attempt): 0 2 Best Gaze (If aphasic, use reflexive mvmts.): 0 3 Visual: 0 4 Facial Palsy: 0 5 Motor Arm Right (UN = amputation/fusion): 0 5 Motor Arm Left: 0 6 Motor Leg Right: 0 6 Motor Leg Left: 0 7 Limb ataxia (Only + if out of proportion): 0 8 Sensory (Aphasia/stupor=0 or 1, coma=2): 1 9 Best Language: 0 10 Dysarthria (mute, coma=2, intubated=UN): 2 11 Extinction and Inattention (only scored if +): 0 Total Score: 3 MDM MDM MDM Narrative Medical decision making narrative: NIH score is 3. 2 points were because patient is mute. She has been mute since childhood. She still complaining of numbness. Patient gives symptoms that are concerning for vertebrobasilar insufficiency or possible stroke. iPad with sign clinical project manager was used. Total time to obtain history and physical 15 minutes. Stroke order set was initiated. Patient is not within the window for thrombolytics and based on score there is no concern for LVO. CBC was obtained assess H&H since he reported black stools. Would expect BUN to creatinine ratio be elevated if this was due to GI bleed. Blood pressure slightly elevated. She does have history of essential hypertension. The iPad with person who signs was used to inform patient of results, need for admission and all her questions answered. Total time to communicate this to the patient was 20 minutes. The hospitalist made aware that she has anxiety when she is in a confined area. She asked if she could be medicated. Patient was informed that she would need to pass a dysphagia test prior to having the anything to eat or drink. She understands need for further testing. She also informed us that Dr. العراقي did some type of study on her arm at the [facility]. Will ask laboratory secretary to obtain these records if possible. History & Record Review Discussion w/independent historian: Patient Lab Data Attestation: I reviewed the patient's lab results. Lab results narrative: CBC, BMP and troponin are unremarkable. Labs: Laboratory Results - last 24 hr 09/21/23 14:40 WBC 4.7 RBC 4.74 Hgb 13.2 Hct 41.3 MCV 87.1 MCH 27.8 MCHC 32.0 RDW Std Deviation 41.1 RDW Coeff of Malathi 13.0 Plt Count 161 MPV 10.4 Immature Gran % (Auto) 0.400 Neut % (Auto) 66.4 Lymph % (Auto) 24.4 [place] % (Auto) 7.5 Eos % (Auto) 1.1 Baso % (Auto) 0.2 Absolute Neuts (auto) 3.1 Absolute Lymphs (auto) 1.14 Nucleated RBC % 0 PT 12.8 INR 1.0 APTT 27.8 Sodium 139 Potassium 4.0 Chloride 110 H Carbon Dioxide 28.0 Anion Gap 1 L BUN 17 Creatinine 0.72 Est GFR (MDRD) Af Amer 108 Est GFR (MDRD) Non-Af 89 BUN/Creatinine Ratio 23.5 H Glucose 91 Calcium 9.2 Troponin I High Sens 16 Radiography Chest X-Ray - ED: Read by ED Physician (Chest x-ray reveals no chronic changes. Cardiac silhouette and size and silhouette are normal. Lung parenchyma is normal. Perihilar regions unremarkable. Osseous structures unremarkable.) Diagnostic Testing: Clinical Impression(s) from Imaging Studies Brain CT 09/21/23 13:48 IMPRESSION: Decreased attenuation in the white matter tracts of the supratentorial brain suggest microvascular disease. Electronically Signed: Reddy Neff MD at 15:26 EST , Chest X-Ray 09/21/23 15:04 IMPRESSION: Stable examination. Electronically Signed: Reddy Neff MD at 15:24 EST , EKG Initial EKG: Attestation: I personally reviewed and interpreted this EKG as follows: Interpretation: Sinus Rhythm (Rate is 70. MN interval is 162 ms. Cures duration 100 ms. QT duration 384 ms. [place] is normal. There is evidence of LVH by voltage criteria. There is also decreased anterior force. Is no acute ischemia.) Management Discussion w/another healthcare provider: Hospitalist (Hospitalist made aware patient is deaf and mute. Hospitalist made aware that patient has claustrophobia that is mild and described as being anxious. She will require medication prior to MRI. He was informed of patient's history and physical.) Stroke Documentation Questions Stroke Team Activated: No (Symptoms started 1 to 2 weeks ago) Reviewed Inclusion/Exclusion criteria: Yes Was Patient considered for Endovascular Intervention?: No-CTA negative, determined not to be an endovascular candidate IV Thrombolytic Administered: No No contraindications from thrombolytic administration: No Risks, Benefits, Alternatives Discussed: No Discharge Plan Triage Chief Complaint: GI Bleed ED Provider: Osvaldo Cox Dx/Rx/DC Orders Clinical Impression: Paresthesia of right upper and lower extremity, Mixed hyperlipidemia, Essential hypertension, Anxiety and depression, Diplopia, Vertigo, Patient taking statin medication prior to hospitalization for ischemic stroke Prescriptions: No Action aspirin 81 mg tablet,chewable 81 mg PO DAILY lisinopril 5 mg tablet 5 mg PO DAILY atorvastatin 40 mg tablet 40 mg PO QHS vitamin E (dl, acetate) 45 mg (100 unit) capsule 45 mg PO DAILY desloratadine 5 mg tablet 5 mg PO DAILY ICaps AREDS 14,320-226-200 maqf-[id number]-acux capsule 1 cap PO BID albuterol sulfate 90 mcg/actuation HFA aerosol inhaler 2 puff inhalation Q6H PRN ibuprofen 600 mg tablet 600 mg PO Q8H PRN escitalopram oxalate 10 mg tablet 10 mg PO DAILY Qty: 30 5RF cyclobenzaprine 5 mg tablet 5 mg PO BID PRN (Reason: pain) Qty: 20 0RF fluticasone propionate 110 mcg/actuation HFA aerosol inhaler 2 puff inhalation BID Qty: 12 0RF rizatriptan 10 mg tablet 10 mg PO ONCE Qty: 10 0RF Rx Instructions: as a single dose peg 3350-electrolytes [Golytely] 236-22.74-6.74 -5.86 gram recon soln 240 ml PO Q10M Qty: 4000 0RF Rx Instructions: until fecal effluent is clear Primary Care Provider: Greg Cook Chi Referrals: Greg Cook Chi, MD [Primary Care Provider] - Disposition Disposition: Acute Care [facility]
--- NOTE | 2023-09-21 13:54 | NURSING ---
NO OLD EKG
[2023-09-21 15:03] VITALS: PULSE 78; RESP 14; O2SAT 98
--- NOTE | 2023-09-21 15:04 | RAD_ITS ---
STUDY: X-RAY CHEST REASON FOR EXAM: Female, 52 years old. Neuro deficit, acute, stroke suspected TECHNIQUE: Single AP portable view of the chest. COMPARISON: Comparison is made with prior study dated November 22, 2022. FINDINGS: EKG electrodes are seen. The lungs are clear and expanded. There is no demonstrated pleural abnormality. Normal size heart. Normal mediastinum and keeley. Normal visualized pulmonary arteries. Normal visualized aortic arch and descending thoracic aorta. There are degenerative changes of the visualized thoracic spine. Normal visualized ribs, clavicles, and shoulders. There is no demonstrated abnormality of the visualized soft tissue structures of the upper abdomen. RAD/Chest 1 View IMPRESSION: Stable examination. Electronically Signed: Reddy Neff MD at 15:24 EST ,
[2023-09-21 15:11] LABS: Absolute Lymphocyte Count 1.14 X10^3/uL (0.83-4.51); Absolute Neutrophil Count 3.1 X10^3/uL (2.0-7.7); Basophil# 0.01 X10^3/uL; Basophil% 0.2 % (0-1); Eosinophil# 0.05 X10^3/uL; Eosinophils% 1.1 % (0-5); Hematocrit 41.3 % (37-47); Hemoglobin 13.2 g/dL (12.0-15.0); Lymphocyte # 1.14 X10^3/ul (0.83-4.51); Lymphocyte % 24.4 % (19-41); Mean Corpuscular Hgb 27.8 pg (27.0-32.0); Mean Corpuscular Volume 87.1 fL (81-99); Mean Platelet Vol. 10.4 fl (6.2-12.0); Monocyte# 0.35 X10^3/uL; Monocyte% 7.5 % (0-10); NRBC Flagged by Analyzer 0 % (0-5); Neutrophil # 3.11 X10^3/uL (2.7-7.7); Neutrophil % 66.4 % (47-70); Platelet Count 161 K/mm3 (150-450); RBC Distribution Width SD 41.1 fl (35.1-43.9); Red Blood Count 4.74 M/mm3 (4.2-5.4); White Blood Count 4.7 K/mm3 (4.4-11.0)
[2023-09-21 15:20] LABS: Prothrombin Time (Protime)PT. 12.8 SECONDS (11.7-14.9)
[2023-09-21 15:21] LABS: Partial Thromboplast Time 27.8 Seconds (24.1-36.2)
[2023-09-21 15:36] LABS: Anion Gap 1 (5-15); BUN 17 mg/dL (7-18); BUN/Creat Ratio 23.5 RATIO (10-20); Calcium,Total 9.2 mg/dL (8.5-10.1); Chloride 110 mmol/L (98-107); Creatinine, Serum 0.72 mg/dL (0.55-1.02); EST Glomerular Filtration Rate 89 mL/min (>60); Est Glom Filt Rate - Afr Amer 108 mL/min (>60); Glucose 91 mg/dL (74-106); Sodium Level 139 mmol/L (136-145); Troponin-I HS 16 pg/mL (3.0-54.0)
[2023-09-21 17:00] VITALS: RESP 14; O2SAT 98
--- NOTE | 2023-09-21 17:55 | PCM.HP.STD ---
HPI - General General Date of Admission: 09/21/23 HPI Narrative ABHIJEET COOLEY, is a 52 F who presents to the hospital with a 2-week history of right-sided paresthesias in her upper and lower extremity as well as diplopia, nausea, vomiting, diarrhea. There was concern for melena and she saw gastroenterology as an outpatient planning for an EGD October 02. She presents today because of the right-sided numbness as well as her continued GI symptoms. She states that she had seen a doctor who at the [facility] was working up her right arm numbness with an arterial study that we cannot find in our system we will attempt to get information from the outside hospital. She is deaf and mute so communication is challenging but completed with writing text [id number]. Admission lab work is unremarkable no significant signs of anemia or dehydration or any signs of infection. [facility] Medical History Asthma Carotid artery stenosis History of stroke Liver cirrhosis Migraine Right cervical radiculopathy Seasonal allergies Home Medications albuterol sulfate 90 mcg/actuation aerosol inhaler 2 puff inhalation Q6H PRN 10/02/22 [History Last Taken Unknown] aspirin 81 mg chewable tablet 81 mg PO DAILY 10/02/22 [History Last Taken Unknown] atorvastatin 40 mg tablet 40 mg PO QHS 10/02/22 [History Last Taken Unknown] desloratadine 5 mg tablet 5 mg PO DAILY 10/02/22 [History Last Taken Unknown] escitalopram oxalate 10 mg tablet 10 mg PO DAILY #30 tabs 10/02/22 [Rx Last Taken Unknown] ibuprofen 600 mg tablet 600 mg PO Q8H PRN 10/02/22 [History Last Taken Unknown] lisinopril 5 mg tablet 5 mg PO DAILY 10/02/22 [History Last Taken Unknown] vitamin E (dl, acetate) 45 mg (100 unit) capsule 45 mg PO DAILY 10/02/22 [History Last Taken Unknown] vitamins A,C,A-afzt-brecrp 4,296 mcg-226 mg-90 mg capsule (ICaps AREDS) 1 cap PO BID 10/02/22 [History Last Taken Unknown] cyclobenzaprine 5 mg tablet 5 mg PO BID PRN pain #20 tabs 11/27/22 [Rx Last Taken Unknown] fluticasone propionate 110 mcg/actuation HFA aerosol inhaler 2 puff inhalation BID #12 grams 11/27/22 [Rx Last Taken Unknown] rizatriptan 10 mg tablet 10 mg PO ONCE #10 tabs 11/27/22 [Rx Last Taken Unknown] peg 3350-electrolytes 236 gram-22.74 gram-6.74 gram-5.86 gram solution (Golytely) 240 ml PO Q10M #4,000 mL 09/12/23 [Rx Last Taken Unknown] Allergy/AdvReac Type Severity Reaction Status Date / Time No Known Allergies Allergy Unverified 09/11/23 15:18 Family History Mother Dementia Father Heart disease Hypertension Other Asthma Depression Surgical History H/O hernia repair History of ankle surgery Social History household members: other details: [employer] current occupational status: unemployed Smoking Status: Never smoker Electronic Cigarette Use: not used alcohol intake: current alcohol intake frequency: holidays/special occasions only Alcohol type: wine substance use type: does not use and marijuana what type of physical activity do you participate in: none do you feel safe at home: Yes ROS Constitutional Constitutional: Denies chills, fatigue, fever(s) or malaise Eyes Eyes: Reports double vision; Denies blurry vision ENT HEENT: Denies headache(s) or nasal discharge Cardiovascular Cardiovascular: Denies chest pain, dyspnea on exertion or syncope Respiratory/Chest Respiratory/Chest: Denies cough, shortness of breath at rest or shortness of breath with exertion Gastrointestinal Gastrointestinal: Reports belching, bloating, diarrhea, melena, nausea and vomiting; Denies constipation Genitourinary Genitourinary: Denies dysuria Neurologic Neurologic: Reports paresthesias RUE and RLE; Denies focal weakness, numbness or tremor(s) Psychiatric Psychiatric: Denies anxiety or depression Vital Signs Vital Signs Vital Signs: 09/21/23 13:03 09/21/23 13:48 Temperature 96.7 F L Temperature Source Temporal Pulse Rate 81 Respiratory Rate 16 Blood Pressure 145/77 H Blood Pressure Mean 99 Pulse Ox 100 Oxygen Delivery Method Room Air Room Air Physical Exam Narrative General: Alert, Oriented x3, Cooperative, No apparent distress HEENT: Atraumatic, PERRLA, EOMI, Normocephalic, deaf and mute Oral: Moist Mucosa Neck: Supple, No JVD Lungs: Diminished, Normal air movement, No rhonchi, No wheeze, No rales Cardiovascular: Regular rate, Regular Rhythm, Normal S1, Normal S2, No murmurs Abdomen: Soft, Non Tender, Non-Distended, No Hepato-splenomegaly Extremities: No edema, Capillary Refill Less than 3 Seconds Skin: No rashes, No breakdown Musculoskeletal: No Tenderness to Palpation of Joints or Extremities Neurological: Cranial nerves II-XII grossly intact, Motor Exam 5/5 strength throughout, Sensory exam intact to light touch and pain Psych/Mental Status: Normal Affect, Appropriate Results Lab / Micro Data 09/21/23 14:40 09/21/23 14:40 Labs: Laboratory Results - last 24 hr 09/21/23 14:40: WBC 4.7, RBC 4.74, Hgb 13.2, Hct 41.3, MCV 87.1, MCH 27.8, MCHC 32.0, RDW Std Deviation 41.1, RDW Coeff of Malathi 13.0, Plt Count 161, MPV 10.4, Immature Gran % (Auto) 0.400, Neut % (Auto) 66.4, Lymph % (Auto) 24.4, [place] % (Auto) 7.5, Eos % (Auto) 1.1, Baso % (Auto) 0.2, Absolute Neuts (auto) 3.1, Absolute Lymphs (auto) 1.14, Nucleated RBC % 0, PT 12.8, INR 1.0, APTT 27.8, Sodium 139, Potassium 4.0, Chloride 110 H, Carbon Dioxide 28.0, Anion Gap 1 L, BUN 17, Creatinine 0.72, Est GFR (MDRD) Af Amer 108, Est GFR (MDRD) Non-Af 89, BUN/Creatinine Ratio 23.5 H, Glucose 91, Calcium 9.2, Troponin I High Sens [address] 09/21/23 13:48 IMPRESSION: Decreased attenuation in the white matter tracts of the supratentorial brain suggest microvascular disease. Electronically Signed: Reddy Neff MD at 15:26 EST , Chest X-Ray 09/21/23 15:04 IMPRESSION: Stable examination. Electronically Signed: Reddy Neff MD at 15:24 EST , Assessment & Plan Assessment/Plan (1) Diplopia: (2) Paresthesia of right upper and lower extremity: PLAN: Plan 1. Diplopia with paresthesias unclear etiology with bloating and nausea and vomiting ? Unclear as to what Meaux significant symptoms are, will continue with PPI ? We will place her on a diet with nausea medications if she is unable to tolerate we may need to start her on IV fluids ? We will place her on NIH's and get an MRI in the morning unlikely that this is a stroke ? She says that this started about 2 weeks ago and a coworker was ill with something similar 2. HTN/HLD ? Blood pressures are stable ? Can resume her home blood pressure medications when verified ? Continue with her Lipitor when verified ? We will hold her aspirin secondary to the concerns for GI bleed that she says that her stools recently were black 3. Anxiety/depression ? Stable ? Continue with her home medications when verified 4. Possible GI bleed ? She says that she has had black stools ? Plan for EGD and colonoscopy on October 02 ? Continue with PPI ? Hemoglobin is unremarkable ? Will hold her ibuprofen She is deaf and mute which does complicate interactions but she is able to read and write which does appear to be the best way to communicate as there is some issues with her sign language with the trommel tender when the ED was evaluating her. DVT: SCDs 75 minutes was spent on direct patient care, including documentation as well as chart review and collaboration with colleagues Charges/Coding Visit Charges Inpatient E&M: 06854 Init Hosp L3
[2023-09-21 19:23] VITALS: BMI 34.0
[2023-09-21 19:27] VITALS: BP 138/77; PULSE 87; RESP 15; TEMP 36.4; O2SAT 100
[2023-09-21 23:40] VITALS: BP 149/72; PULSE 72; RESP 15; TEMP 36.5; O2SAT 99
[2023-09-22 03:40] VITALS: BP 145/84; PULSE 76; RESP 15; TEMP 36.4; O2SAT 97
[2023-09-22] MEDS: Acetaminophen 325 MG Tablet 650 MG PO ×3 (05:34→20:45)
--- NOTE | 2023-09-22 06:11 | NURSING ---
pt agreed to IV for nausea medication. #24 angio inserted into left wrist. Pt refusing nausea medication at this time.
[2023-09-22 07:06] LABS: Absolute Lymphocyte Count 1.41 X10^3/uL (0.83-4.51); Absolute Neutrophil Count 2.4 X10^3/uL (2.0-7.7); Basophil# 0.01 X10^3/uL; Basophil% 0.2 % (0-1); Eosinophil# 0.08 X10^3/uL; Eosinophils% 1.9 % (0-5); Hematocrit 43.2 % (37-47); Hemoglobin 13.7 g/dL (12.0-15.0); Lymphocyte # 1.41 X10^3/ul (0.83-4.51); Mean Corp Hgb Conc 31.7 g/dL (32-36); Mean Corpuscular Hgb 28.1 pg (27.0-32.0); Mean Corpuscular Volume 88.5 fL (81-99); Mean Platelet Vol. 10.2 fl (6.2-12.0); Monocyte# 0.35 X10^3/uL; Monocyte% 8.2 % (0-10); NRBC Flagged by Analyzer 0 % (0-5); Neutrophil # 2.41 X10^3/uL (2.7-7.7); Neutrophil % 56.5 % (47-70); Platelet Count 152 K/mm3 (150-450); RBC Distribution Width CV 13.1 % (11.6-14.6); RBC Distribution Width SD 42.5 fl (35.1-43.9); Red Blood Count 4.88 M/mm3 (4.2-5.4); White Blood Count 4.3 K/mm3 (4.4-11.0)
--- NOTE | 2023-09-22 07:30 | MRI_ITS ---
HISTORY: Diplopia and right side paresthesias. TECHNIQUE: Multiplanar and multisequence MR images of the brain were obtained without contrast. 274 images. COMPARISON: CT prior day. FINDINGS: BRAIN PARENCHYMA: Multiple foci of increased T2 FLAIR signal in the bilateral cerebral white matter, some with a perpendicular orientation to the lateral ventricles. No abnormal focus of restricted diffusion. No acute intracranial hemorrhage identified. CSF SPACES: Cerebral ventricles, cortical sulci, and other extra-axial CSF spaces within normal limits in size for age. No significant midline shift or other mass effect.No extra-axial fluid collection. VASCULAR SYSTEM: Major intracranial flow voids are maintained. PARANASAL SINUSES AND MASTOID AIR CELLS: Trace fluid in the mastoid air cells. ORBITS: Symmetric contents. MRI/Brain without Contrast IMPRESSION: No evidence for acute infarct. Moderate chronic white matter changes which may be secondary to chronic small vessel ischemic gliosis or sequela of nonspecific demyelination or inflammation. Electronically Signed: Perla French MD at 11:50 EST ,
[2023-09-22 07:49] VITALS: BP 151/89; PULSE 70; RESP 14; TEMP 36.4; O2SAT 98
[2023-09-22 07:55] LABS: Anion Gap 4 (5-15); BUN 14 mg/dL (7-18); BUN/Creat Ratio 17.9 RATIO (10-20); Chloride 108 mmol/L (98-107); Creatinine, Serum 0.78 mg/dL (0.55-1.02); EST Glomerular Filtration Rate 82 mL/min (>60); Est Glom Filt Rate - Afr Amer 99 mL/min (>60); Estimated Creatinine Clearance 62.94 ml/min; Glucose 124 mg/dL (74-106); Potassium 3.4 mmol/L (3.5-5.1); Sodium Level 140 mmol/L (136-145)
--- NOTE | 2023-09-22 09:48 | PN.HOSP_ITS ---
Reason for Visit Reason for Visit: Diagnoses Diplopia (09/21/23) Paresthesia of skin (09/21/23) Objective Data Objective Data Vital Signs: Vital Signs Temp Pulse Resp BP Pulse Ox O2 Del Method 97.5 F L 70 14 151/89 H 98 Room Air 09/22/23 07:49 09/22/23 07:49 09/22/23 07:49 09/22/23 07:49 09/22/23 07:49 09/22/23 07:49 Oxygen Delivery Method Room Air Weight: 180 lb 5.41 oz Body Mass Index (BMI) 34.0 Intake & Output: Intake and Output for Last 24 Hours 09/20/23 09/21/23 09/22/23 23:59 23:59 23:59 Intake Total 440 / 440 Balance 440 / 440 Lab / Micro Data 09/22/23 06:39 09/22/23 06:39 Labs: Laboratory Results - last 24 hr 09/21/23 14:40: WBC 4.7, RBC 4.74, Hgb 13.2, Hct 41.3, MCV 87.1, MCH 27.8, MCHC 32.0, RDW Std Deviation 41.1, RDW Coeff of Malathi 13.0, Plt Count 161, MPV 10.4, Immature Gran % (Auto) 0.400, Neut % (Auto) 66.4, Lymph % (Auto) 24.4, [place] % (Auto) 7.5, Eos % (Auto) 1.1, Baso % (Auto) 0.2, Absolute Neuts (auto) 3.1, Absolute Lymphs (auto) 1.14, Nucleated RBC % 0, PT 12.8, INR 1.0, APTT 27.8, Sodium 139, Potassium 4.0, Chloride 110 H, Carbon Dioxide 28.0, Anion Gap 1 L, BUN 17, Creatinine 0.72, Est GFR (MDRD) Af Amer 108, Est GFR (MDRD) Non-Af 89, BUN/Creatinine Ratio 23.5 H, Glucose 91, Calcium 9.2, Troponin I High Sens 16 09/22/23 06:39: WBC 4.3 L, RBC 4.88, Hgb 13.7, Hct 43.2, MCV 88.5, MCH 28.1, MCHC 31.7 L, RDW Std Deviation 42.5, RDW Coeff of [place] 13.1, Plt Count 152, MPV 10.2, Immature Gran % (Auto) 0.200, Neut % (Auto) 56.5, Lymph % (Auto) 33.0, [place] % (Auto) 8.2, Eos % (Auto) 1.9, Baso % (Auto) 0.2, Absolute Neuts (auto) 2.4, Absolute Lymphs (auto) 1.41, Nucleated RBC % 0, Sodium 140, Potassium 3.4 L, Chloride 108 H, Carbon Dioxide 28.0, Anion Gap 4 L , BUN 14, Creatinine 0.78, Estim Creat Clear Calc 62.94, Est GFR (MDRD) Af Amer 99, Est GFR (MDRD) Non-Af 82, BUN/Creatinine Ratio 17.9, Glucose 124 H, Calcium 9.0 Radiography Diagnostic Testing: Radiology Impression Brain CT 09/21/23 13:48 IMPRESSION: Decreased attenuation in the white matter tracts of the supratentorial brain suggest microvascular disease. Electronically Signed: Reddy Neff MD at 15:26 EST , Chest X-Ray 09/21/23 15:04 IMPRESSION: Stable examination. Electronically Signed: Reddy Neff MD at 15:24 EST , Physical Exam Narrative Seen and examined. I have seen patient earlier in hepatology clinic 09/11/2023 and she patient came for black stool and liver mass. I told her to go to ER but she not come. Yesterday was admitted after right-sided paresthesia, diplopia nausea vomiting and diarrhea. Patient is deaf and mute. History is difficult in the clinic it was taken from fiber designer on her iPad. Physical exam General: Alert, Oriented x3, Cooperative HEENT: Atraumatic, PERRLA, EOMI, Normocephalic Oral: Oral mucosa moist no Gingival or Mucosal Lesions/ Ulcerations Neck: Supple, No JVD, Negative Carotid Bruits Lungs: Air entry diminished in bilateral lung bases. No crepitation/rhonchi Cardiovascular: Regular rate, Regular Rhythm, Normal S1, Normal S2, No murmurs Abdomen: Bowel Sounds Present, Soft, Non Tender, Non-Distended : No renal angle tenderness. No suprapubic tenderness. Extremities: No edema, Capillary Refill Less than 3 Seconds Skin: No rashes, No breakdown Musculoskeletal: No Tenderness to Palpation of Joints or Extremities Neurological: Cranial nerves II-XII grossly intact, DTR 2+/4. Muscle strength, does not show drop as per NIH stroke scale. Language function and dysarthria cannot be examined. Psych/Mental Status: Flat affect. Assessment & Plan Assessment/Plan (1) Diplopia: (2) Paresthesia of right upper and lower extremity: PLAN: Plan 52-year-old female admitted with 2-week history of right sided paresthesia of upper and lower extremity, diplopia, nausea, vomiting and diarrhea. Patient was recently seen in ED for severe anemia for concern of melena. 1. Diplopia with paresthesias unclear etiology with bloating and nausea and vomiting: Patient being admitted in PCU. MRI brain negative for acute infarct. She does not need further persuasion of stroke work-up. 2. Hypertension and dyslipidemia: ? Blood pressures are stable ? Can resume her home blood pressure medications when verified ? Continue with her Lipitor when verified ? We will hold her aspirin secondary to the concerns for GI bleed that she says that her stools recently were black: 3. Anxiety/depression ? Continue with her home medications when verified 4. Possible GI bleed about 1 week ago, melena was evaluated in GI/hepatology clinic:H&H 13.7/43.2%. She is scheduled for EGD and colonoscopy as an outpatient. Continue PPI. ? Plan for EGD and colonoscopy on October 02 ? Continue with PPI ? hold her ibuprofen, baby aspirin and other NSAID. 5. Liver tumor found on CT abdomen: CT abdomen shows a 2.3 x 1.9 cm heterogeneously enhancing nodule in posterior medial aspect of right lobe of liver. There is suspicion of hemangioma. As an outpatient, triple phase CT scan was ordered. DVT: SCDs Charges/Coding Visit Charges Inpatient E&M: 13416 Subs Hosp L2
[2023-09-22 14:00] VITALS: BP 124/70; PULSE 76; RESP 12; TEMP 36.9; O2SAT 97
[2023-09-22 15:01] VITALS: BP 124/70; PULSE 76; RESP 12; TEMP 36.9; O2SAT 97
[2023-09-22] MEDS: 0.9% Saline Lock 10 ML Syringe IV ×2 (16:33→21:54)
[2023-09-22] MEDS: Ondansetron 4 MG/2 ML Vial IV (16:33)
[2023-09-22 21:30] VITALS: BP 131/84; PULSE 70; RESP 18; TEMP 36.2; O2SAT 97
[2023-09-22] MEDS: proCHLORPERazine 10 MG/2 ML Vial 5 MG IV (21:54)
[2023-09-23 03:27] VITALS: BP 151/74; PULSE 71; RESP 16; TEMP 36.3; O2SAT 98
[2023-09-23 07:51] VITALS: BP 152/89; PULSE 68; RESP 12; TEMP 36.5; O2SAT 98
--- NOTE | 2023-09-23 09:56 | DCINST_ITS ---
Discharge Instructions Diet Discharge Diet: No restrictions Activity Discharge Activity: Return to Normal Activity and May Not Drive Weight Bearing Status: Weight bearing as tolerated Dressing / Incision Call your doctor if you observe: Fever of 101 or Higher, Coldness, Increased Pain, Numbness or Tingling, Change in Color, Inability to urinate, Inability to have a bowel movement, Using more than 1 pad per hour, Shortness of breath, Dizziness, Fainting spells, Swelling in the ankles, Chest pain, Prolonged hiccupping, Increased palpitations (irregular heartbeat) and Calf discomfort Follow Up Care When: IN 2 WEEKS Test Results: Test results from this visit will be discussed in further detail at your follow- up appointment, if applicable. Discharge Plan Admission Admit Date/Time: 09/21/23 17:57 Attending Provider: Rojas Christianson Primary Care Provider: Greg Cook [employer] Providers: Mat Owens Discharge Orders/Prescriptions Prescriptions: New pantoprazole [Protonix] 40 mg tablet,delayed release (DR/EC) 40 mg PO DAILY Qty: 30 2RF Continued aspirin 81 mg tablet,chewable 81 mg PO DAILY lisinopril 5 mg tablet 5 mg PO DAILY atorvastatin 40 mg tablet 40 mg PO QHS vitamin E (dl, acetate) 45 mg (100 unit) capsule 45 mg PO DAILY desloratadine 5 mg tablet 5 mg PO DAILY ICaps AREDS [id number],[id number] [id number] capsule 1 cap PO BID albuterol sulfate 90 mcg/actuation HFA aerosol inhaler 2 puff inhalation Q6H PRN escitalopram oxalate 10 mg tablet 10 mg PO DAILY Qty: 30 5RF cyclobenzaprine 5 mg tablet 5 mg PO BID PRN (Reason: pain) Qty: 20 0RF fluticasone propionate 110 mcg/actuation HFA aerosol inhaler 2 puff inhalation BID Qty: 12 0RF rizatriptan 10 mg tablet 10 mg PO ONCE Qty: 10 0RF Rx Instructions: as a single dose peg 3350-electrolytes [Golytely] 236-22.74-6.74 -5.86 gram recon soln 240 ml PO Q10M Qty: 4000 0RF Rx Instructions: until fecal effluent is clear Held ibuprofen 600 mg tablet 600 mg PO Q8H PRN Hold Instructions: Hold as patient having GI bleed simply. Referrals / Follow Up: Friend,Jonas, DO [Med Staff - Active Staff] - (Follow-up as scheduled.) Greg Cook Chi, MD [Primary Care Provider] - Disposition Disposition (needs filled in before D/C Order can be placed): Home, Self Care
[2023-09-23 10:01] VITALS: BP 130/68; PULSE 74; RESP 16; TEMP 36.5; O2SAT 98
--- NOTE | 2023-09-23 10:02 | DS.PCM_ITS ---
Providers Date of Admission: 09/21/23 Date of Discharge: 09/23/23 Primary Care Physician: Dr. Greg Cook MD Reason For Visit: DIPLOPIA Diagnosis Discharge Diagnosis (1) Diplopia: Status: Acute Code(s): H53.2 - Diplopia (2) Paresthesia of right upper and lower extremity: Status: Acute Code(s): R20.2 - Paresthesia of skin Plan 52-year-old female admitted with 2-week history of right sided paresthesia of upper and lower extremity, diplopia, nausea, vomiting and diarrhea. Patient was recently seen in ED for severe anemia for concern of melena. 1. Diplopia with paresthesias unclear etiology with bloating and nausea and vomiting: Patient being admitted in PCU. MRI brain negative for acute infarct. She does not need further persuasion of stroke work-up. 09/23 outpatient further PT and OT. Maggie maneuver was done. Patient not feeling dizzy or vertigo. No additional functional requirement for PT. Advised to follow-up outpatient for OT. Patient has wheeled walker at home. Patient discharged home. 2. Hypertension and dyslipidemia: ? Blood pressures are stable ? Can resume her home blood pressure medications when verified ? Continue with her Lipitor when verified ? We will hold her aspirin secondary to the concerns for GI bleed that she says that her stools recently were black: 3. Anxiety/depression ? Continue with her home medications when verified 4. Possible GI bleed about 1 week ago, melena was evaluated in GI/hepatology clinic:H&H 13.7/43.2%. She is scheduled for EGD and colonoscopy as an outpatient on October 02. Continue PPI. ? Continue with PPI. ? hold her ibuprofen, baby aspirin and other NSAID. 09/13: Patient advised to keep GI/hepatology appointment for EGD and colonoscopy and follow-up for liver tumor most probably hemangioma. Prescription for Protonix given. 5. Liver tumor found on CT abdomen: CT abdomen shows a 2.3 x 1.9 cm heterogeneously enhancing nodule in posterior medial aspect of right lobe of liver. There is suspicion of hemangioma. As an outpatient, triple phase CT scan was ordered. DVT: SCDs Medications at Discharge Home Medications albuterol sulfate 90 mcg/actuation aerosol inhaler 2 puff inhalation Q6H PRN 10/02/22 aspirin 81 mg chewable tablet 81 mg PO DAILY 10/02/22 atorvastatin 40 mg tablet 40 mg PO QHS 10/02/22 desloratadine 5 mg tablet 5 mg PO DAILY 10/02/22 escitalopram oxalate 10 mg tablet 10 mg PO DAILY #30 tabs 10/02/22 ibuprofen 600 mg tablet 600 mg PO Q8H PRN 10/02/22 lisinopril 5 mg tablet 5 mg PO DAILY 10/02/22 vitamin E (dl, acetate) 45 mg (100 unit) capsule 45 mg PO DAILY 10/02/22 vitamins A,C,R-ezye-ezvugy 4,296 mcg-226 mg-90 mg capsule (ICaps AREDS) 1 cap PO BID 10/02/22 cyclobenzaprine 5 mg tablet 5 mg PO BID PRN pain #20 tabs 11/27/22 fluticasone propionate 110 mcg/actuation HFA aerosol inhaler 2 puff inhalation BID #12 grams 11/27/22 rizatriptan 10 mg tablet 10 mg PO ONCE #10 tabs 11/27/22 peg 3350-electrolytes 236 gram-22.74 gram-6.74 gram-5.86 gram solution (Golytely) 240 ml PO Q10M #4,000 mL 09/12/23 pantoprazole 40 mg tablet,delayed release (Protonix) 40 mg PO DAILY #30 tabs 09/23/23 Physical Exam Narrative Seen and examined. PT and OT was done. No abdominal tenderness. Although patient to nurse yesterday complained of some mild abdominal pain. Nonspecific. History is difficult in the clinic it was taken from solar energy consultant and designer on her iPad. Physical exam General: Alert, Oriented x3, Cooperative HEENT: Atraumatic, PERRLA, EOMI, Normocephalic Oral: Oral mucosa moist no Gingival or Mucosal Lesions/ Ulcerations Neck: Supple, No JVD, Negative Carotid Bruits Lungs: Air entry diminished in bilateral lung bases. No crepitation/rhonchi Cardiovascular: Regular rate, Regular Rhythm, Normal S1, Normal S2, No murmurs Abdomen: Bowel Sounds Present, Soft, Non Tender, Non-Distended : No renal angle tenderness. No suprapubic tenderness. Extremities: No edema, Capillary Refill Less than 3 Seconds Skin: No rashes, No breakdown Musculoskeletal: No Tenderness to Palpation of Joints or Extremities Neurological: Cranial nerves II-XII grossly intact, DTR 2+/4. Muscle strength, does not show drop as per NIH stroke scale. Language function and dysarthria cannot be examined. Psych/Mental Status: Flat affect. Weight / BMI Weight Weight: 180 lb 5.41 oz Body Mass Index (BMI) 34.0 ABG / Lab / Microbiology Data 09/22/23 06:39 09/22/23 06:39 Radiography Diagnostic Testing: Radiology Impression Brain MRI 09/22/23 07:30 IMPRESSION: No evidence for acute infarct. Moderate chronic white matter changes which may be secondary to chronic small vessel ischemic gliosis or sequela of nonspecific demyelination or inflammation. Electronically Signed: Perla French MD at 11:50 EST , D/C Instructions Discharge Diet: No restrictions Weight Bearing Status: Weight bearing as tolerated Call your doctor if you observe: Fever of 101 or Higher, Coldness, Increased Pain, Numbness or Tingling, Change in Color, Inability to urinate, Inability to have a bowel movement, Using more than 1 pad per hour, Shortness of breath, Dizziness, Fainting spells, Swelling in the ankles, Chest pain, Prolonged hiccupping, Increased palpitations (irregular heartbeat) and Calf discomfort When: IN 2 WEEKS Meaningful Use Info Meaningful Use Diagnoses (Choose all that apply): None applicable Discharge Plan Admission Admit Date/Time: 09/21/23 17:57 Primary Reason for Your Visit: Dizziness vertigo, acute stroke ruled out. Attending Provider: Rojas Christianson Primary Care Provider: Greg Cook [employer] Providers: Mat Owens Discharge Orders/Prescriptions Prescriptions: New pantoprazole [Protonix] 40 mg tablet,delayed release (DR/EC) 40 mg PO DAILY Qty: 30 2RF Continued aspirin 81 mg tablet,chewable 81 mg PO DAILY lisinopril 5 mg tablet 5 mg PO DAILY atorvastatin 40 mg tablet 40 mg PO QHS vitamin E (dl, acetate) 45 mg (100 unit) capsule 45 mg PO DAILY desloratadine 5 mg tablet 5 mg PO DAILY ICaps AREDS [id number] [id number] capsule 1 cap PO BID albuterol sulfate 90 mcg/actuation HFA aerosol inhaler 2 puff inhalation Q6H PRN escitalopram oxalate 10 mg tablet 10 mg PO DAILY Qty: 30 5RF cyclobenzaprine 5 mg tablet 5 mg PO BID PRN (Reason: pain) Qty: 20 0RF fluticasone propionate 110 mcg/actuation HFA aerosol inhaler 2 puff inhalation BID Qty: 12 0RF rizatriptan 10 mg tablet 10 mg PO ONCE Qty: 10 0RF Rx Instructions: as a single dose peg 3350-electrolytes [Golytely] 236-22.74-6.74 -5.86 gram recon soln 240 ml PO Q10M Qty: 4000 0RF Rx Instructions: until fecal effluent is clear Held ibuprofen 600 mg tablet 600 mg PO Q8H PRN Hold Instructions: Hold as patient having GI bleed simply. Referrals / Follow Up: Jonas Bennett DO [Med Staff - Active Staff] - (Follow-up as scheduled.) Greg Cook Chi, MD [Primary Care Provider] - Disposition Disposition (needs filled in before D/C Order can be placed): Home, Self Care Charges/Coding Visit Charges Inpatient E&M: 15774 Disch Hosp >30min
[2023-09-23] MEDS: Pantoprazole Sodium 40 MG Tablet PO (10:30)
[2023-09-23] MEDS: Potassium Chloride Oral Tablet 20 MEQ 40 MEQ PO (11:00)
== END 2023-09-23 12:19 | disposition home or self-care (01) ==
LOC: ED 17:15 → PCU 17:43
PROVIDERS: Admitting Provider Family Medicine; Emergency Provider Emergency Medicine; PCP Family Medicine Geriatric Medicine; Visit Provider Internal Medicine
DX: H53.2 Diplopia (principal); R20.2 Paresthesia of skin; F41.9 Anxiety disorder, unspecified; R42 Dizziness and giddiness; F32.A Depression, unspecified; Z79.82 Long term (current) use of aspirin; I10 Essential (primary) hypertension; E78.2 Mixed hyperlipidemia; H91.3 Deaf nonspeaking, not elsewhere classified; J45.909 Unspecified asthma, uncomplicated; Z79.899 Other long term (current) drug therapy; R11.2 Nausea with vomiting, unspecified; R16.0 Hepatomegaly, not elsewhere classified; R94.31 Abnormal electrocardiogram [ECG] [EKG]
CPT/HCPCS: 36415; 70450; 70551; 71045; 80048; 84484; 85025; 85610; 85730; 93005; 96374; 96375; 97162; 97165; 97802; 99221; 99282; A4216; G0378; J2405

== ENCOUNTER 2023-11-02 10:58 | Emergency (ER) | payer MEDICARE, SELFPAY ==
[2023-11-02 11:01] VITALS: BP 124/101; PULSE 104; RESP 16; TEMP 35.6; O2SAT 98; BMI 32.5
--- NOTE | 2023-11-02 11:36 | CT_ITS ---
INDICATION: Abdominal pain. EXAMINATION: CT ABDOMEN AND PELVIS WITHOUT CONTRAST - CT Abdomen And Pelvis W/O Contrast Injection TECHNIQUE: Helically acquired images were obtained of the abdomen and pelvis without oral or IV contrast. A radiation dose optimization technique was used for this scan. IV Contrast dosage and agent: None. Oral contrast: None. RADIATION DOSAGE (If Supplied By Facility): CTDIvol = ( 12.01 ) mGy, DLP = ( 603.21 ) mGycm COMPARISON: Prior study dated: 06/22/2023. FINDINGS: LOWER CHEST: Lung bases are clear. No cardiomegaly or pericardial effusion. LIVER: Irregular liver consistent with cirrhosis unchanged. Vaguely visualized hypodense lesion in the medial aspect of the right lower lobe unchanged in size could be due to hemangioma. GALLBLADDER AND BILIARY TREE: No calcified gallstones. No gallbladder distension or wall edema. No intra- or extrahepatic biliary ductal dilation. PANCREAS: No focal cystic or solid mass. SPLEEN: Normal size without focal cystic or solid mass. ADRENAL GLANDS: No nodules. KIDNEYS AND URETERS: 4 mm nonobstructing stone in the right kidney without evidence of hydronephrosis. Unremarkable left kidney. PERITONEUM: No ascites or free air. No other fluid collection. BOWEL: The cecum is midline in position. The appendix appears unremarkable. No stomach or bowel distension. No focal inflammatory change. LYMPH NODES: No enlarged mesenteric or retroperitoneal lymph nodes. VESSELS: Atherosclerotic calcifications of the abdominal aorta without evidence of aneurysm. URINARY BLADDER: Unremarkable. REPRODUCTIVE ORGANS: The uterus is not identified. ABDOMINAL WALL: [Diastases of the anterior rectus muscles is again seen. BONES: Severe disc space narrowing of L4-L5 unchanged. CT/Abdomen/Pelvis without Cont IMPRESSION: 1. No focal acute inflammatory process. 2. Small nonobstructing stone in the right kidney without evidence of hydronephrosis. 3. Irregular liver suggestive of cirrhosis unchanged. 4. Vaguely visualized right lobe liver lesion again unchanged. Electronically Signed: Damien Jones MD at 12:43 EST ,
--- NOTE | 2023-11-02 11:37 | EDS_ITS ---
HPI History of Present Illness Chief Complaint: Flank Pain Informant: patient Narrative Narrative: 53-year-old female arriving to the emergency department for the evaluation of flank pain. An per diem interpreter was utilized. Patient notes that she was on Keflex for 10 days earlier this month. The report we got was that she was treated with Keflex 12 3. She tells me she took her last dose of the antibiotic on Sunday. She notes chills vomiting. She notes suprapubic right-sided abdominal and right flank pain. No left-sided pain. No prior history of kidney stones. Patient has a history of liver cirrhosis. [facility] Medical History Asthma Carotid artery stenosis History of stroke Liver cirrhosis Migraine Right cervical radiculopathy Seasonal allergies Stroke/cerebrovascular accident Home Medications albuterol sulfate 90 mcg/actuation aerosol inhaler 2 puff inhalation Q6H PRN 10/02/22 [History Last Taken Unknown] aspirin 81 mg chewable tablet 81 mg PO DAILY 10/02/22 [History Last Taken Unknown] atorvastatin 40 mg tablet 40 mg PO QHS 10/02/22 [History Last Taken Unknown] desloratadine 5 mg tablet 5 mg PO DAILY 10/02/22 [History Last Taken Unknown] escitalopram oxalate 10 mg tablet 10 mg PO DAILY #30 tabs 10/02/22 [Rx Last Taken Unknown] ibuprofen 600 mg tablet 600 mg PO Q8H PRN 10/02/22 [History Last Taken Unknown] lisinopril 5 mg tablet 5 mg PO DAILY 10/02/22 [History Last Taken Unknown] vitamin E (dl, acetate) 45 mg (100 unit) capsule 45 mg PO DAILY 10/02/22 [History Last Taken Unknown] vitamins A,C,L-fjaa-woligf 4,296 mcg-226 mg-90 mg capsule (ICaps AREDS) 1 cap PO BID 10/02/22 [History Last Taken Unknown] cyclobenzaprine 5 mg tablet 5 mg PO BID PRN pain #20 tabs 11/27/22 [Rx Last Taken Unknown] fluticasone propionate 110 mcg/actuation HFA aerosol inhaler 2 puff inhalation BID #12 grams 11/27/22 [Rx Last Taken Unknown] rizatriptan 10 mg tablet 10 mg PO ONCE #10 tabs 11/27/22 [Rx Last Taken Unknown] peg 3350-electrolytes 236 gram-22.74 gram-6.74 gram-5.86 gram solution (Golytely) 240 ml PO Q10M #4,000 mL 09/12/23 [Rx Last Taken Unknown] pantoprazole 40 mg tablet,delayed release 40 mg PO DAILY #30 tabs 10/22/23 [Rx Last Taken Unknown] oxycodone 5 mg tablet 5 mg PO TID PRN pain 3 days #12 tabs 11/02/23 [Rx Last Taken Unknown] Allergy/AdvReac Type Severity Reaction Status Date / Time No Known Allergies Allergy Verified 10/22/23 13:07 Family History Mother Dementia Father Heart disease Hypertension Other Asthma Depression Surgical History H/O hernia repair History of ankle surgery Social History household members: other details: nursing home current occupational status: unemployed Smoking Status: Never smoker Electronic Cigarette Use: not used alcohol intake: current alcohol intake frequency: holidays/special occasions only Alcohol type: wine substance use type: does not use and marijuana what type of physical activity do you participate in: none do you feel safe at home: Yes ROS ROS ED Constitutional Constitutional ED: Reports chills; Denies fever(s) or weight loss Eyes Eyes: Denies change in vision or diplopia ENT ENT ED: Denies ear pain, rhinorrhea or sore throat Cardiovascular Cardiovascular: Denies chest pain, orthopnea, palpitations or racing heartbeat Respiratory/Chest Respiratory/Chest: Denies cough, dyspnea or orthopnea Gastrointestinal Gastrointestinal: Reports abdominal pain, nausea and vomiting; Denies diarrhea Genitourinary Genitourinary ED: Reports dysuria, hematuria and urinary frequency Musculoskeletal Musculoskeletal: Reports back pain; Denies arthralgias or myalgias Integumentary Denies abscess or rash Neurologic Neurologic: Denies headache(s) or weakness Psychiatric Psychiatric: Denies anxiety, depression, suicidal ideation or suicidal thoughts Endocrine Endocrinology: Denies polydipsia, polyphagia or polyuria Allergic/Immunologic Allergic/Immunologic ED: Denies mouth swelling, tongue swelling or urticaria EXAM Physical Exam Const Vital Signs: 11/02/23 11:01 11/02/23 15:14 Temperature 96.0 F L Temperature Source Temporal Pulse Rate 104 H 75 Respiratory Rate 16 16 Blood Pressure 124/101 H 131/83 H Blood Pressure Mean 108 99 Pulse Ox 98 Oxygen Delivery Method Room Air Room Air Positive well nourished, well developed and obese General Appearance ED: well developed Nutritional Appearance: obese HEENT Reports normocephalic, head/scalp atraumatic and moist mucous membranes Eyes PERRL and EOMs intact bilaterally Neck no lymphadenopathy, supple and no JVD Resp normal respiratory effort and clear to auscultation bilaterally Cardio regular rate, regular rhythm and no murmurs Cardio Narrative: Patient's heart rate was 87 on my examination. GI GI Narrative: Right-sided abdominal pain. Tenderness to palpation no guarding or rebound Inspection: Negative for abdominal distention Auscultation: normoactive bowel sounds Palpation: soft Back/Spine normal ROM General Back: CVA tenderness right Extremity normal to inspection General Extremety ED: Negative for edema General Extremity: Negative for edema Neuro oriented x3 and CN's II-XII intact bilaterally Sensorium / Orientation: alert Motor Exam: strength 5/5 throughout Psych mental status grossly normal Mood & Affect: Negative for depressed or tearful Skin no rashes or lesions noted and no wounds MDM MDM MDM Narrative Medical decision making narrative: Urinalysis does not show any overt hematuria or obvious infection. White count 4.6 hemoglobin 13.8 and platelet count of 157. Liver enzymes are elevated with a bilirubin of 1.3 total bilirubin 0.34 slightly elevated transaminases ALT 91 AST 58 alk phos 154. Lipase 145. Creatinine normal 0.71. CT abdomen bowel pelvis demonstrated a kidney stone in the right kidney with no perinephric stranding or hydronephrosis. No inflammatory changes in the abdomen pelvis noted. Changes consistent with cirrhosis. Patient initially received Toradol and later morphine. She also received IV fluids. I discussed the above findings with the patient. She tells me she was never told that she was diagnosed with cirrhosis. After some investigation she tells me that she remembers being told she had cirrhosis in [place] but states that she was never diagnosed with that here in [place]. She has seen Dr. Bennett earlier this year but does not know exactly what that was for. I am not sure that today's pain is related to her cirrhosis. She states that today's pain is chronic which is not what she said when she was initially interviewed. She states that she was diagnosed with a UTI earlier this month and is now developed this pain in the flank suprapubic and right side of the abdomen. She states the pain she had in [place] was very short-lived. Again I am not convinced that the pain she is feeling is from cirrhosis. However I do not see any cause for her pain today. I can write for her to have some short course of pain medication but would recommend follow-up. Patient states that she has transportation issues that complicate follow-up but also states that she drove here today. History & Record Review Discussion w/independent historian: Patient Additional record(s) reviewed:: Prior outpatient record, Prior ED visit and Prior labs Lab Data Attestation: I reviewed the patient's lab results. Labs: Laboratory Results - last 24 hr 11/02/23 11/02/23 11:45 12:50 WBC 4.6 RBC 4.90 Hgb 13.8 Hct 41.7 MCV 85.1 MCH 28.2 MCHC 33.1 RDW Std Deviation 39.9 RDW Coeff of Malathi 13.0 Plt Count 157 MPV 10.0 Immature Gran % (Auto) 0.200 Neut % (Auto) 66.7 Lymph % (Auto) 25.9 [place] % (Auto) 5.7 Eos % (Auto) 1.3 Baso % (Auto) 0.2 Absolute Neuts (auto) 3.0 Absolute Lymphs (auto) 1.18 Nucleated RBC % 0 Sodium 140 Potassium 3.7 Chloride 109 H Carbon Dioxide 30.0 Anion Gap 1 L BUN 14 Creatinine 0.71 Estim Creat Clear Calc 68.35 Est GFR (MDRD) Af Amer 111 Est GFR (MDRD) Non-Af 91 BUN/Creatinine Ratio 19.7 Glucose 100 Calcium 9.8 Total Bilirubin 1.30 H Direct Bilirubin 0.34 H AST 58 H ALT 91 H Alkaline Phosphatase 154 H Total Protein 7.5 Albumin 3.5 Globulin 4.0 Lipase 145 H Urine Color Yellow Urine Clarity Sl. Cloudy Urine pH 7.0 Ur Specific [place] 1.015 Urine Protein Negative Urine Glucose (UA) Normal Urine Ketones Negative Urine Occult Blood Negative Urine Nitrite Negative Urine Bilirubin Negative Urine Urobilinogen Normal Ur Leukocyte Esterase Negative Urine RBC 0-5 SEEN Urine WBC 0 SEEN Ur Squamous Epith Cells 5-10 SEEN Urine Bacteria RARE Urine Mucus RARE Radiography Diagnostic Testing: Clinical Impression(s) from Imaging Studies Abdomen/Pelvis CT 11/02/23 11:36 IMPRESSION: 1. No focal acute inflammatory process. 2. Small nonobstructing stone in the right kidney without evidence of hydronephrosis. 3. Irregular liver suggestive of cirrhosis unchanged. 4. Vaguely visualized right lobe liver lesion again unchanged. Electronically Signed: Damien Jones MD at 12:43 EST , Discharge Plan Triage Chief Complaint: Flank Pain Other Complaint: Complaint ED Provider: Nishant Wheeler Dx/Rx/DC Orders Clinical Impression: Abdominal pain, Cirrhosis of liver, Acute flank pain, Dysuria Instructions: ED Cirrhosis, ED Kidney Stone No Sx Prescriptions: New oxycodone 5 mg tablet 5 mg PO TID PRN (Reason: pain) 3 Days Qty: 12 0RF No Action aspirin 81 mg tablet,chewable 81 mg PO DAILY lisinopril 5 mg tablet 5 mg PO DAILY atorvastatin 40 mg tablet 40 mg PO QHS vitamin E (dl, acetate) 45 mg (100 unit) capsule 45 mg PO DAILY desloratadine 5 mg tablet 5 mg PO DAILY ICaps AREDS 14,320-226-200 otoc-di-resr capsule 1 cap PO BID albuterol sulfate 90 mcg/actuation HFA aerosol inhaler 2 puff inhalation Q6H PRN ibuprofen 600 mg tablet 600 mg PO Q8H PRN Hold Instructions: Hold as patient having GI bleed simply. escitalopram oxalate 10 mg tablet 10 mg PO DAILY Qty: 30 5RF cyclobenzaprine 5 mg tablet 5 mg PO BID PRN (Reason: pain) Qty: 20 0RF fluticasone propionate 110 mcg/actuation HFA aerosol inhaler 2 puff inhalation BID Qty: 12 0RF rizatriptan 10 mg tablet 10 mg PO ONCE Qty: 10 0RF Rx Instructions: as a single dose peg 3350-electrolytes [Golytely] 236-22.74-6.74 -5.86 gram recon soln 240 ml PO Q10M Qty: 4000 0RF Rx Instructions: until fecal effluent is clear pantoprazole 40 mg tablet,delayed release (DR/EC) 40 mg PO DAILY Qty: 30 2RF Rx Instructions: Take 1 tablet before breakfast. Primary Care Provider: Greg Cook Chi Referrals: Jonas Bennett DO [Med Staff - Active Staff] - As soon as possible Greg Cook Chi, MD [Primary Care Provider] - 1 Week Disposition Disposition: Home, Self Care Discharge Date/Time: 11/02/23 15:44
[2023-11-02] MEDS: 0.9% Normal Saline (1000mL) 1,000 ML 1000 ML IV (11:43)
[2023-11-02] MEDS: Ketorolac 30 MG/ML Syringe IV (11:43)
[2023-11-02] MEDS: Ondansetron 4 MG/2 ML Vial IV (11:43)
[2023-11-02 11:58] LABS: Absolute Lymphocyte Count 1.18 X10^3/uL (0.83-4.51); Basophil# 0.01 X10^3/uL; Basophil% 0.2 % (0-1); Eosinophil# 0.06 X10^3/uL; Eosinophils% 1.3 % (0-5); Hematocrit 41.7 % (37-47); Hemoglobin 13.8 g/dL (12.0-15.0); Lymphocyte # 1.18 X10^3/ul (0.83-4.51); Lymphocyte % 25.9 % (19-41); Mean Corp Hgb Conc 33.1 g/dL (32-36); Mean Corpuscular Hgb 28.2 pg (27.0-32.0); Mean Corpuscular Volume 85.1 fL (81-99); Monocyte# 0.26 X10^3/uL; Monocyte% 5.7 % (0-10); NRBC Flagged by Analyzer 0 % (0-5); Neutrophil # 3.04 X10^3/uL (2.7-7.7); Neutrophil % 66.7 % (47-70); Platelet Count 157 K/mm3 (150-450); RBC Distribution Width SD 39.9 fl (35.1-43.9); White Blood Count 4.6 K/mm3 (4.4-11.0)
[2023-11-02 12:14] LABS: AST(SGOT) 58 U/L (15-37); Alanine Aminotransfer ALT/SGPT 91 U/L (13-56); Albumin, Serum 3.5 g/dL (3.2-5.0); Alkaline Phosphatase 154 U/L (45-117); Anion Gap 1 (5-15); BUN 14 mg/dL (7-18); BUN/Creat Ratio 19.7 RATIO (10-20); Bilirubin, Direct 0.34 mg/dL (0.00-0.30); Calcium,Total 9.8 mg/dL (8.5-10.1); Chloride 109 mmol/L (98-107); Creatinine, Serum 0.71 mg/dL (0.55-1.02); EST Glomerular Filtration Rate 91 mL/min (>60); Est Glom Filt Rate - Afr Amer 111 mL/min (>60); Estimated Creatinine Clearance 68.35 ml/min; Glucose 100 mg/dL (74-106); Lipase 145 U/L (13-75); Potassium 3.7 mmol/L (3.5-5.1); Protein, Total 7.5 g/dL (6.4-8.2); Sodium Level 140 mmol/L (136-145)
[2023-11-02 12:54] LABS: White Blood Cells 0 SEEN /hpf (0-5)
[2023-11-02 12:58] LABS: Color, Urine Yellow (Yellow); Glucose, Dipstick Normal (Normal); Ketone-Dipstick Negative (Negative); Leukocyte Esterase-Dipstick Negative /ul (Negative); Nitrite-Dipstick Negative (Negative); Occult Blood-Urine Negative /ul (Negative); Protein-Dipstick Negative (Negative); Specific Gravity, Urine 1.015 (1.002-1.030); Urine Bilirubin Dipstick Negative (Negative); Urine Clarity Sl. Cloudy (Clear); Urine Urobilinogen Normal (Normal)
[2023-11-02 13:05] LABS: Bacteria RARE /hpf (None Seen); Mucous, Urine RARE /hpf (<or=2+); Red Blood Cells-Urine 0-5 SEEN /hpf (0-5); Squamous Epithelial Cells - UA 5-10 SEEN /hpf (5-10)
[2023-11-02] MEDS: Morphine 4 MG/ML Syringe IV (14:10)
[2023-11-02 15:14] VITALS: BP 131/83; PULSE 75; RESP 16
== END 2023-11-02 15:44 | disposition home or self-care (01) ==
PROVIDERS: Emergency Provider Emergency Medicine; PCP Family Medicine Geriatric Medicine; Visit Provider Emergency Medicine
DX: K74.60 Unspecified cirrhosis of liver (principal); R30.0 Dysuria; E66.9 Obesity, unspecified; Z68.32 Body mass index [BMI] 32.0-32.9, adult; Z79.82 Long term (current) use of aspirin; Z86.73 Personal history of transient ischemic attack (TIA), and cerebral infarction without residual deficits
CPT/HCPCS: 74176; 80048; 80076; 81001; 83690; 85025; 96361; 96374; 96375; 99284; J7030; A4216; J2405

== ENCOUNTER 2023-12-21 05:29 | Day surgery (SDC) | payer MEDICARE, MEDICAID, SELFPAY ==
[2023-12-21] VITALS (8 sets, daily range): BP systolic 97–148; BP diastolic 47–94; PULSE 69–86; RESP 16; TEMP 36–36.3; O2SAT 96–100; BMI 35.2
--- OUTSIDE RECORDS SUMMARY | 2023-12-21 05:35 | XMS RPT_ITS | CCD ---
Author Name Unknown Address [address] [place] [address] Organization [facility] Care Team Providers Care Log Buncher Name Role Phone Praveen, John Chi Primary Care Provider Unavailable Primary Care Provider Unavailabl e Praveen, Jonh Chi Primary Care Provider VEE GUERIN Attending Unavailable VEE GUERIN Referring Unavailable PRAVEEN, JOHN CHI Primary Care Unavailable PRAVEEN, JOHN CHI Primary Care Unavailable HAGISELL HERNANDEZ Attending Unavailable PRAVEEN, JOHN CHI Primary Care Unavailable HAURY GISELL Referring Unavailable PRAVEEN, JOHN CHI Primary Care Unavailable PRAVEEN, JOHN CHI Primary Care Unavailable HAURY, GISELL Referring Unavailable PRAVEEN, JOHN CHI Primary Care Unavailable GISELL HOOPER Attending Unavailable ADE SLADE Attending Unavailable OZIEL AREVALO Primary Care Unavailable PRAVEEN, JOHN CHI Primary Care Unavailable HAURY, GISELL Referring Unavailable PRAVEEN, JOHN CHI Primary Care Unavailable HAURYGISELL Attending Unavailable PRAVEEN, JOHN CHI Primary Care Unavailable PRAVEEN, JOHN CHI Primary Care Unavailable VEE GUERIN Referring Unavailable PRAVEEN, JOHN CHI Primary Care Unavailable VEE GUERIN Referring Unavailable PRAVEEN, JOHN CHI Primary Care Unavailable VEE GUERIN Referring Unavailable VEE GUERIN Attending Unavailable PRAVEEN, JOHN CHI Primary Care Unavailable OZIEL AREVALO Primary Care Unavailable PRAVEEN, JOHN CHI Primary Care Unavailable ADE SLADE Referring Unavailable PRAVEEN, JOHN CHI Primary Care Unavailable YAQUELIN FALCON Attending Unavailable Allergies Allergy Classification Reported Allergen(s) Allergy Type Date of Onset Reaction(s) Facility (8 sources) Ketorolac; Translations: [KETOROLAC TROMETHAMINE] Drug Allergy 3 Vomiting [facility] Work Phone: (4 sources) Environmental allergies [Other] Propensity to adverse reactions 6 [facility] (1 source) OTHER; Translations: [OTHER] Propensity to adverse reactions (disorder) 6 [facility] Repository Medications Current Medications Medication Drug Class(es) Dates Sig (Normalized) Sig (Original) miconazole nitrate 20 mg/ml vaginal cream (1 source) Azole Antifungal Start: 01-22-2023 End: 01-29-2023 miconazole (MONISTAT 7) 2 % vaginal cream Use 1 Applicator vaginally daily at bedtime for 7 days. 30 g 1 01/22/2023 01/29/2023 Active Completed/Discontinued Medications Medication Drug Class(es) Dates Sig (Normalized) Sig (Original) acetaminophen 325 mg / oxyCODONE hydrochloride 5 mg oral tablet (6 sources) Opioid Agonist Start: 03-27-2016 take 1 tablet by mouth every four hours as needed oxyCODONE-acetami nophen (PERCOCET) 5-325 mg tablet Take 1 tablet by mouth every 4 hours as needed. 30 tablet 0 03/27/2016 Active Problems Active Problems Problem Classification Problem Date Documented Da te Episodic/Chronic Adjustment disorders (7 sources) Adjustment disorder; Translations: [Adjustment disorder, unspecified] Onset: 02-02-2010 02-02-2010 Chronic Asthma (14 sources) Allergic asthma; Translations: [Unspecified asthma, uncomplicated] Onset: 03-11-2009 03-11-2009 Chronic Essential hypertension (7 sources) Essential hypertension; Translations: [Essential (primary) hypertension] Onset: 02-28-2016 02-28-2016 Chronic Genitourinary symptoms and ill-defined conditions (1 source) Genuine stress incontinence; Translations: [Stress incontinence (female) (male)] 10-12-2023 Chronic Genitourinary symptoms and ill-defined conditions (1 source) Increased frequency of urination; Translations: [Frequency of micturition] 10-12-2023 Episodic Menstrual disorders (20 sources) Menorrhagia; Translations: [Excessive and frequent menstruation with regular cycle] Onset: 03-05-2013 03-05-2013 Chronic Mood disorders (7 sources) Depressive disorder; Translations: [Other specified depressive episodes] Onset: 05-06-2008 05-06-2008 Chronic Occlusion or stenosis of precerebral arteries (1 source) Occlusion and stenosis of bilateral carotid arteries; Translations: [Bilateral carotid artery stenosis] Onset: 08-07-2023 Chronic Other ear and sense organ disorders (7 sources) Hearing loss; Translations: [Unspecified hearing loss, unspecified ear] Onset: 12-06-2006 12-06-2006 Chronic Other ear and sense organ disorders (7 sources) Bilateral deafness; Translations: [Unspecified hearing loss, bilateral] Onset: 02-28-2016 02-28-2016 Chronic Other endocrine disorders (7 sources) Disorder of anterior pituitary; Translations: [Other disorders of pituitary gland] Onset: 03-05-2007 11-07-2021 Chronic Other female genital disorders (1 source) Vaginal irritation; Translations: [Other specified noninflammatory disorders of vagina] Episodic Other female genital disorders (1 source) Vaginal odor; Translations: [Other specified noninflammatory disorders of vagina] 10-12-2023 Episodic Other female genital disorders (1 source) Pruritus of vagina; Translations: [Other specified noninflammatory disorders of vagina] 10-12-2023 Episodic Other gastrointestinal disorders (1 source) Constipation; Translations: [Constipation, unspecified] 10-12-2023 Episodic Other gastrointestinal disorders (1 source) Diarrhea; Translations: [Diarrhea, unspecified] 10-12-2023 Episodic Other upper respiratory disease (7 sources) Allergic rhinitis; Translations: [Allergic rhinitis, unspecified] Onset: 02-07-2007 02-07-2007 Chronic Other upper respiratory disease (7 sources) Seasonal allergy; Translations: [Other seasonal allergic rhinitis] Onset: 02-28-2016 02-28-2016 Chronic Peripheral and visceral atherosclerosis (1 source) Peripheral vascular disease, unspecified; Translations: [Peripheral arterial disease (HCC)] Onset: 08-24-2023 Chronic Past or Other Problems Problem Classification Problem Date Documented Date Episodic/Chronic Abdominal hernia (14 sources) Umbilical hernia; Translations: [Umbilical hernia without obstruction or gangrene] Onset: 02-06-2013 02-06-2013 Episodic Abdominal pain (10 sources) Pain in female pelvis; Translations: [Pelvic and perineal pain] Onset: 06-13-2013 06-13-2013 Episodic Administrative/socia l admission (7 sources) Parent/child conflict; Translations: [Parent-biological child conflict] Onset: 06-13-2010 06-13-2010 Episodic Inflammatory diseases of female pelvic organs (7 sources) Female pelvic peritoneal adhesions; Translations: [Female pelvic peritoneal adhesions (postinfective)] Onset: 06-18-2013 06-18-2013 Episodic Other female genital disorders (7 sources) Enlarged uterus; Translations: [Hypertrophy of uterus] Onset: 06-13-2013 06-13-2013 Episodic Other screening for suspected conditions (not mental disorders or infectious disease) (3 sources) Patient encounter status; Translations: [Encounter for screening mammogram for malignant neoplasm of breast] Onset: 01-19-2023 Episodic Sexually transmitted infections (not HIV or hepatitis) (7 sources) Human papillomavirus deoxyribonucleic acid test positive, high risk on cervical specimen; Translations: [Cervical high risk human papillomavirus (HPV) DNA test positive] Onset: 05-06-2008 05-06-2008 Episodic Results Test Name Value Interpretation Reference Range Facil ity Vital Signs Date Time Vital Sign Value Performing Clinician Mala skelton 10-12-2023 11:27-0500 Body weight 81.56 kg Gisell Hooper APRN.CORPORATE TAX PREPARER Work Phone: [facility] 10-12-2023 11:27-0500 Diastolic blood pressure 80 mm[Hg] Gisell Hooper APRN.CORPORATE TAX PREPARER Work Phone: [facility] 10-12-2023 11:27-0500 Systolic blood pressure 140 mm[Hg] Gisell Hooper APRN.CORPORATE TAX PREPARER Work Phone: [facility] 01-19-2023 09:52-0500 Diastolic blood pressure 82 mm[Hg] Ade Slade MD Work Phone: [facility] 01-19-2023 09:52-0500 Systolic blood pressure 118 mm[Hg] Ade Slade MD Work Phone: [facility] Encounters Encounter Date Encounter Type Care Provider Facility Start: 12-20-2023 Telephone encounter Oziel hamilton RN Work Phone: Gynecology Procedures Date Procedure Procedure Detail Performing Clinician Start: 10-12-2023 Urnls dip stick/tabl et rgnt auto w/o microscopy Gisell Hooper APRN.CORPORATE TAX PREPARER Work Phone: Start: 01-19-2023 Follow-up visit FOLLOW UP CARLY GUERIN Start: 01-19-2023 End: 01-19-2023 Mammography Ade Slade MD Work Phone: Start: 03-10-2016 Mammography Ade grubbs MD Work Phone: Start: 05-20-2014 Lipid 1996 panel - S messi or Plasma Screen Wstr Plan of Treatment Date Care Activity Detail Author Start: 05-02-2033 Urine microalbumin profile DTaP,Tdap,Td Vaccine (2 - Td or Tdap) [facility] Start: 11-14-2024 BP Controlled (<130/80) BP Controlled (<130/80) [facility] Start: 08-07-2024 BP Controlled (<130/80) BP Controlled (<130/80) [facility] Start: 01-20-2024 Mammography [facility] Start: 01-20-2024 Screening for malignant neoplasm of breast Mammogram Screening [facility] Start: 07-13-2023 Influenza vaccination Influ[facility]ine (#[facility]) [facility] Start: 07-13-2022 Influenza vaccination [facility] Start: 2019 SHINGRIX VACCINE (1 of 2) SHINGRIX VACCINE (1 of 2) [facility] Start: 2019 Zoster Vaccines (1 of 2) Zoster Vaccines (1 of 2) [facility] Start: 05-20-2019 Lipid 1996 panel - Serum or Plasma Lipid Screening [facility] Start: 05-20-2019 Lipid panel Lipid Screening [facility] Start: 05-20-2019 LIPID SCREEN LIPID SCREEN [facility] Start: 02-27-2019 DIABETES SCREEN DIABETES SCREEN [facility] Start: 02-27-2019 Diabetes Screening Diabetes Screening [facility] Start: 03-10-2017 Mammography MAMMOGRAM [facility] Start: 2014 COLOGUARD (FIT-DNA) COLOGUARD (FIT-DNA) [facility] Start: 2014 Colonoscopy COLONOSCOPY [facility] Start: 2014 COLORECTAL CANCER SCREENING COLORECTAL CANCER SCREENING [facility] Start: [address] COLONOGRAPHY [facility] Start: 2014 FECAL OCCULT BLOOD FECAL OCCULT BLOOD [facility] Start: 2014 Screening for malignant neoplasm of colon [facility] Start: 2014 SIGMOIDOSCOPY SIGMOIDOSCOPY [facility] Start: 12-13-2011 PNEUMOCOCCAL (2 - PCV) PNEUMOCOCCAL (2 - PCV) [facility] Start: 12-13-2011 Pneumococcal vaccination [facility] Start: 2009 Screening for malignant neoplasm of breast Mammogram [facility] Start: 01-19-2007 Urine microalbumin profile [facility] Start: 1999 Screening for malignant neoplasm of cervix [facility] Start: 1990 Screening for malignant neoplasm of cervix Pap Smear [facility] Start: 1988 DTaP/Tdap/Td Vaccines (1 - Tdap) DTaP/Tdap/Td Vaccines (1 - Tdap) [facility] Start: 1987 ANNUAL PCP TEAM CHRONIC DISEASE VISIT ANNUAL PCP TEAM CHRONIC DISEASE VISIT [facility] Start: 1987 BP CONTROLLED (<130/80) BP CONTROLLED (<130/80) [facility] Start: 1987 Hepatitis C screening Hepatitis C Screening [facility] Start: 1970 MMR Vaccines (1 of 1 - Standard series) MMR Vaccines (1 of 1 - Standard series) [facility] Start: 04-01-1970 COVID-19 VACCINE (#1) COVID-19 VACCINE (#1) [facility] Start: 1969 HEPATITIS B (1 of 3 - 3-dose series) HEPATITIS B (1 of 3 - 3-dose series) [facility] Start: 1969 Hepatitis B Vaccine (1 of 3 - 3-dose series) Hepatitis B Vaccine (1 of 3 - 3-dose series) [facility] Start: 1969 Hepatitis B Vaccines (1 of 3 - 3-dose series) Hepatitis B Vaccines (1 of 3 - 3-dose series) [facility] Start: 1969 HIV screening HIV Screening [facility] Start: 1969 Screening for malignant neoplasm of colon [facility] Bacteria identified in Urine by Culture URINE CULTURE Microbiology Routine Pelvic pain in female 10/12/2023 12:19 PM EST [facility] Work Phone: BACTERIAL VAGINOSIS AMPLIFICATION BACTERIAL VAGINOSIS AMPLIFICATION Lab Routine Vaginal irritation 01/19/2023 10:43 AM EST [facility] Work Phone: BACTERIAL VAGINOSIS NAAT BACTERI AL VAGINOSIS NAAT Lab Routine Pelvic pain in female 10/12/2023 12:19 PM EST [facility] Work Phone: ASHLEY / TRICHOMONA S AMPLIFICATION ASHLEY / TRICHOMONAS AMPLIFICATION Microbiology Routine Encounter for gynecological examination (general) (routine) without abnormal findings Vaginal irritation 01/19/2023 10:43 AM EST [facility] Work Phone: ASHLEY/TRICHOMONAS NAAT ASHLEY /TRICHOMONAS NAAT Lab Routine Pelvic pain in female 10/12/2023 12:19 PM EST [facility] Work Phone: End: 02-18-2024 LISSA SCREENING LISSA SCREENING Radiology Routine Encounter for gynecological examination (general) (routine) without abnormal findings Encounter for screening mammogram for breast cancer 1 Occurrences starting 01/19/2023 until 02/18/2024 [facility] Work Phone: Immunizations Immunization Date Immunization Notes Care Provider Fa [facility] 08-04-2015 influenza, injectabl e, quadrivalent, contains preservative Ade Slade MD Work Phone: [facility] 08-04-2015 influenza virus vacc ine, unspecified formulation Screen Wstr [facility] 11-25-2014 influenza, seasonal, injectable Ade Slade MD Work Phone: [facility] 08-25-2013 influenza virus vacc ine, unspecified formulation Ade Slade MD Work Phone: [facility] 09-23-2012 influenza virus vacc ine, unspecified formulation Ade Slade MD Work Phone: [facility] 12-13-2010 pneumococcal polysaccharide vaccine, 23 valent Ade Slade MD Work Phone: [facility] 09-13-2010 influenza virus vacc ine, unspecified formulation Ade Slade MD Work Phone: [facility] 08-13-2009 influenza virus vacc ine, unspecified formulation Ade Slade MD Work Phone: [facility] 08-18-2008 influenza virus vacc ine, unspecified formulation Ade Slade MD Work Phone: [facility] 10-01-2007 influenza virus vacc ine, unspecified formulation Ade Slade MD Work Phone: [facility] 01-18-2007 tetanus and diphther ia toxoids, not adsorbed, for adult use Ade Slade MD Work Phone: [facility] Payers Date Payer Category Payer Unknown [employer]IC[employer] ADVANTAGE HMO [id number] 2023-Present [phone] [address] [place] [address] HMO [id number] 2022 Medicare [facility] AARP MEDICAR E [facility] AARP MEDICARE HMO [id number] 2022-Present [phone] [address] [address] [place] [address] HMO [id number] 2022 Medicare [id number] Social History Date Type Detail Facility Start: 01-30-2013 End: 06-08-2023 Tobacco smoking status NHIS Ex-smoker [facility] End: 12-14-1991 History of tobacco use Current smoker [facility] End: 12-14-1991 History of tobacco use Cigarette Smoker [facility] Start: 01-30-2013 End: 06-08-2023 Cigarettes smoked current (pack per day) - Reported 0.5 [facility] Start: 01-30-2013 End: 06-08-2023 Tobacco use and exposure Former smokeless tobacco user [facility] End: 11-12-2011 History of tobacco use User of smokeless tobacco [facility] Start: 01-19-2023 End: 11-14-2023 Alcohol intake Current drinker of alcohol (finding) [facility] Start: 01-03-2010 Alcohol Comment Occasionally [facility] Start: 1970 Sex Assigned At Not on file [facility] Tobacco smoking stat [facility] Tobacco smoking consumption unknown [facility] Start: 01-19-2023 End: 06-08-2023 Tobacco use panel [facility] National Score (1-10 0), lower number is lower risk 68 [facility] Medical Equipment Procedure Code Equipment Code Equipment Origin al Text Equipment Identifier Dates Patch Ventralex St Sepra Sorbaflex 2.5in Medium [place] [employer] - [id number] Start: 03-21-2016 Clinical Notes 01-28-2010 to 12-20-2023 Telephone Encounter - Oziel Felipe RN - 12/20/2023 9:39 AM ESTTelephone Encounter - Gisell Hooper APRN.CORPORATE TAX PREPARER - 10/24/2023 2:46 PM ESTTelephone Encounter - Florence Lopez RN - 10/24/2023 1:10 PM EST Note Date & Type Note Facility 12-20-2023 Miscellaneous Notes Summary: MIGS vs CPP Pt was contacted r/t being scheduled with a Minimally Invasive Gynocology Surgery (MIGS) surgeon. Which in fact she was referred to Chronic Pelvic Pain (CPP). Pt said that she had difficulty opening her MyChart and was unable to see the forms. She called and was then scheduled with MIGS. Pt advised that we will mail the CPP NPAF Forms to her and once filled out she is to send it back. Once received we will schedule her to see CPP. Pt' mailing address has been updated to her preferred mailing address. Pt agreed to plan and had no further questions. documented in this encounter [facility] 11-14-2023 Note HNO ID: [id number] Author: Gisell Hooper APRN.BURT Service: ? Author Type: Nurse Practitioner Type: Progress Notes Filed: 11/14/2023 4:02 PM Note Text: Katey Rebolledo is a 53 year old female who presents for a follow up visit for pelvic pain. 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 HPI: Patient was seen on 11/02 for ongoing pelvic pain. Went to ER after 11/02 appointment for CVA tenderness and suspected pyelonephritis. ER did imaging - patient reports something was found on her kidney. She has a follow up scheduled with Dr. Cook for this. Was treated for trich. However, patient reports she hasn't been sexually active in years and was negative at the beginning of October. Still experiencing right sided pelvic pain and urinary frequency. 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 Pap smear (cervix) Allergic rhinitis, cause unspecified Asthma Chronic diarrhea Cirrhosis (HCC) Deaf nonspeaking, not elsewhere classifiable HTN (hypertension) Stroke (HCC) 2018 Umbilical hernia 03/21/2016 Variants of migraine, not elsewhere classified, without mention of intractable migraine without mention of status migrainosus PAST SURGICAL HISTORY Procedure Laterality Date DELIVERY ONLY , low transverse COLPOSCOPY CERVIX UPPER/ADJACENT VAGINA Colposcopy LAPS W/VAG HYSTERECT 250 GM/ANDRMVL TUBEAND/OVARIES 06/17/13 LAVH, bilateral salpingectomy LIG/TRNSXJ FLP TUBE ABDL/VAG APPR UNI/BI Tubal ligation PAST SURGICAL HISTORY OF Rt ankle surgery REPAIR UMBILICAL HERNIA <5YRS INCAR/JANEL 03/21/2016 recurrent RPR UMBILICAL HRNA 5 YRS/> REDUCIBLE 06-17-13 FAMILY HISTORY Problem Relation Age of Onset Asthma Mother Hypertension Mother Lipids Mother Dementia Mother Coronary Artery Disease Father [place] ? age Hypertension Sister Social History Tobacco Use Smoking status: Former Packs/day: 0.50 Years: 4.00 Additional pack years: 0.00 Total pack years: 2.00 Types: Cigarettes Quit date: 12/14/1991 Years since quittin.9 Smokeless tobacco: Former Quit date: 11/12/2011 Vaping Use Vaping Use: Never used Substance Use Topics Alcohol use: Yes Comment: SOCIALLY Drug use: No Current Outpatient Medications Medication Sig escitalopram oxalate (LEXAPRO) 10 mg tablet aspirin 81 mg chewable tablet Take by mouth. desloratadine (CLARINEX) 5 mg tablet Take by mouth. atorvastatin (LIPITOR) 40 mg tablet Take by mouth. rizatriptan (MAXALT) 10 mg tablet Take 1 tablet by mouth as needed for Migraine Headache (see administration instructions). Ok to repeat after 2 hrs if no relief x1. lisinopril (PRINIVIL) 5 mg tablet Take 1 tablet by mouth once daily. No current facility-administered medications for this visit. Allergies As of Date: 11/14/2023 Allergen Noted Reaction TORADOL [KETOROLAC TROMETHAMINE] 02/05/2013 Vomiting Fully Assessed 11/14/2023 REVIEW OF SYSTEMS Abdomen: No bloating, early satiety, indigestion, or increased flatulence. No abdominal pain, nausea, vomiting, or constipation. + chronic diarrhea + anal itching, mucous Bladder: No dysuria, gross hematuria, urinary urgency, or incontinence. + urinary frequency Breast: No breast lumps, nipple d/c, overlying skin changes, redness or skin retraction. Expanded ROS: N/A Allergies and current medication updated:Yes EXAM: BP 100/70 Wt 0 lb (0.0kg) LMP 01/19/2013 GENERAL: pleasant, female in no apparent distress HEENT: Normocephalic, atraumatic, mucus membranes moist, and no lesions NECK: Supple, full range of motion, no adenopathy, and thyroid normal DERMATOLOGY: Normal, without lesions, non-icteric, and non-hirsute BREAST: deferred CHEST: Normal inspiratory effort ABDOMEN: Deferred PELVIC: deferred BIMANUAL: deferred NEURO: alert and oriented x3,exam grossly non-focal EXTREMITIES: normal ASSESSMENT AND PLAN: 1. Pelvic pain in female - ICD9: 625.9, ICD10: R10.2 (primary diagnosis) - Reports diarrhea and changes in bowel habits - Notes anal itching and mucous - Pelvic ultrasound pending - Pelvic pain consult placed - Discussed with patient that this may be GI in etiology. Has appointment with Dr. Bennett 12/07. 2. Urinary frequency - ICD9: 788.41, ICD10: R35.0 - Urine culture - Discussed possibility of false positive rates of trich testing - Based on patient stating she has not been sexually active in years, and a prior negative trich test 2 weeks ago, G/C testing and blood work was not done. Patient agreeable. Gisell Hooper APRN.CORPORATE TAX PREPARER Medical Decision Making: Problems: Moderate: 1+ chronic illnesses with change Data: U (more content not included)... [facility] 11-09-2023 Note HNO ID: [id number] Author: Aline Villaseñor RDMS Service: ? Author Type: Networker Type: Progress Notes Filed: 11/09/2023 8:26 AM Note Text: Radiology Service Progress Note PATIENT NAME: Katey Luic DATE OF SERVICE: November 09, 2023 TIME: 8:25 AM PATIENT IDENTITY VERIFICATION COMPLETED USING TWO (2) IDENTIFIERS: Name and Date of confirmed by patient verbally. FALL SCREENING: Has the patient had 2 falls in the last year or 1 fall with injury or currently using an Ambulatory Assistive Device (Walker, Cane, Wheelchair, Crutches, etc.)? No PATIENT GENDER DATA: Female. status: : No status: NO. PATIENT RELEVANT IMPLANT DATA REVIEWED: Not Applicable RADIOLOGY DEPARTMENT: Ultrasound PERIPHERAL IV DATA: Not applicable SIGNED BY: Aline Villaseñor RDMS November 09, 2023 8:25 AM [facility] 11-02-2023 Note HNO ID: [id number] Author: Gisell Hooper APRN.CORPORATE TAX PREPARER Service: ? Author Type: Nurse Practitioner Type: Progress Notes Filed: 11/02/2023 11:10 AM Note Text: Katey Rebolledo is a 53 year old female who presents for problem visit of problem visit for continued pelvic pain. Toll Line Inspector used for visit. HPI: Patient was here on 10/12 with bilateral pelvic pain. Ultrasound was normal - right ovary not visualized. History of hysterectomy. BV yeast testing negative. Positive for UTI: treated with Keflex. Patient did not start until October 21 - took for 7 days. Called in on 10/31 with continued pain, despite finishing antibiotic. History of chronic diarrhea, which continues to be ongoing. Also experiencing nausea and chills. Reports incontinence and inability to sleep on her back. 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 Pap smear (cervix) Allergic rhinitis, cause unspecified Asthma Deaf nonspeaking, not elsewhere classifiable HTN (hypertension) Umbilical hernia 03/21/2016 Variants of migraine, not elsewhere classified, without mention of intractable migraine without mention of status migrainosus PAST SURGICAL HISTORY Procedure Laterality Date DELIVERY ONLY , low transverse COLPOSCOPY CERVIX UPPER/ADJACENT VAGINA Colposcopy LAPS W/VAG HYSTERECT 250 GM/ANDRMVL TUBEAND/OVARIES 06/17/13 [facility], bilateral salpingectomy LIG/TRNSXJ FLP TUBE ABDL/VAG APPR UNI/BI Tubal ligation PAST SURGICAL HISTORY OF Rt ankle surgery REPAIR UMBILICAL HERNIA <5YRS INCAR/JANEL 03/21/2016 recurrent RPR UMBILICAL HRNA 5 YRS/> REDUCIBLE 06-17-13 FAMILY HISTORY Problem Relation Age of Onset Asthma Mother Hypertension Mother Lipids Mother Dementia Mother Coronary Artery Disease Father [place] ? age Hypertension Sister Social History Tobacco Use Smoking status: Former Packs/day: 0.50 Years: 4.00 Additional pack years: 0.00 Total pack years: 2.00 Types: Cigarettes Quit date: 12/14/1991 Years since quittin.9 Smokeless tobacco: Former Quit date: 11/12/2011 Vaping Use Vaping Use: Never used Substance Use Topics Alcohol use: Yes Comment: SOCIALLY Drug use: No Current Outpatient Medications Medication Sig escitalopram oxalate (LEXAPRO) 10 mg tablet vit C/E/Zn/coppr/lutein/zeaxan (PRESERVISION AREDS-2 ORAL) Take by mouth. (Patient not taking: Reported on 10/12/2023) aspirin 81 mg chewable tablet Take by mouth. desloratadine (CLARINEX) 5 mg tablet Take by mouth. atorvastatin (LIPITOR) 40 mg tablet Take by mouth. rizatriptan (MAXALT) 10 mg tablet Take 1 tablet by mouth as needed for Migraine Headache (see administration instructions). Ok to repeat after 2 hrs if no relief x1. loratadine (CLARITIN) 10 mg tablet Take 1 tablet by mouth once daily as needed. (Patient not taking: Reported on 08/07/2023) fluticasone (FLONASE) 50 mcg/actuation nasal spray Use 1-2 Sprays in each nostril once daily. (Patient not taking: Reported on 06/08/2023) lisinopril (PRINIVIL) 5 mg tablet Take 1 tablet by mouth once daily. ketotifen fumarate (ZADITOR) 0.025 % (0.035 %) ophthalmic solution One drop to each eye 2 to 3 times a day as needed. (Patient not taking: Reported on 06/08/2023) oxyCODONE-acetaminophen (PERCOCET) 5-325 mg tablet Take 1 tablet by mouth every 4 hours as needed. (Patient not taking: Reported on 06/08/2023) codeine-guaiFENesin (ROBITUSSIN AC) 10-100 mg/5 mL syrup Take 5-10 mL by mouth four times daily as needed for Cough. May cause drowsiness. (Patient not taking: Reported on 01/19/2023) azithromycin (ZITHROMAX Z-DANIEL) 250 mg tablet Take 2 tablets by mouth day one, then 1 tablet daily until gone. (Patient not taking: Reported on 01/19/2023) fluticasone-salmeterol HFA (ADVAIR HFA) 230-21 mcg/actuation inhaler Inhale 2 Puffs as instructed twice daily. Use with spacer. Rinse mouth out after use. (Patient not taking: Reported on 06/08/2023) albuterol HFA (PROVENTIL HFA, VENTOLIN HFA) 90 mcg/actuation inhaler Inhale 2 Puffs as instructed every 4 hours as needed (for cough, wheezing, chest tightness or shortness of breath. Use with spacer. ). (Patient not taking: Reported on 06/08/2023) EPINEPHrine (EPIPEN) 0.3 mg/0.3 mL (1:1,000) atIn Inject 0.3 mL intramuscularly as directed. FOR ALLERGIC REACTION. SEEK EMERGENCY MEDICAL CARE IMMEDIATELY AFTER USE. (Patient not taking: Reported on 01/19/2023) albuterol 2.5 mg /3 mL (0.083 %) nebulizer solution One ampule nebulized every 4 hours as needed for cough, wheezing, chest tightness or shortness of breath. Dx: asthma 493.00 (Patient not taking: Reported on 10/09/2023) No (more content not included)... [facility] 10-24-2023 Miscellaneous Notes [employer] System[employer] message sent. Gisell Hooper APRN.BURT Patient notified of results with the assistance of film tests checker. Patient states the pain is still present and she is still doing a lot of trips to the bathroom trips. Patient complaining of dysuria, urgency and frequency. She does feel like she is emptying completely. Feels better after urinating, but then pain starts again. Patient states she has noticed a little bit of blood in her urine. Patient did not start her medication when prescribed as she states she did not have any money to pick it up. Patient states she still has 18 pills left. Florence Lopez RN Left message for patient to call office via film tests checker services. SHAUNA CABRAL RN Please notify patient: Ultrasound WNL. Left ovary visualized, right ovary not visualized. Pelvic pain likely related to infection. How is she doing on antibiotic? Gisell Hooper APRN.CORPORATE TAX PREPARER documented in this encounter [facility] 10-19-2023 Note HNO ID: [id number] Author: Aline Villaseñor RDMS Service: ? Author Type: Networker Type: Progress Notes Filed: 10/19/2023 9:53 AM Note Text: Radiology Service Progress Note PATIENT NAME: Katey Rebolledo DATE OF SERVICE: October 19, 2023 TIME: 9:52 AM PATIENT IDENTITY VERIFICATION COMPLETED USING TWO (2) IDENTIFIERS: Name and Date of confirmed by patient verbally. FALL SCREENING: Has the patient had 2 falls in the last year or 1 fall with injury or currently using an Ambulatory Assistive Device (Walker, Cane, Wheelchair, Crutches, etc.)? No PATIENT GENDER DATA: Female. status: : No status: NO. PATIENT RELEVANT IMPLANT DATA REVIEWED: Not Applicable RADIOLOGY DEPARTMENT: Ultrasound PERIPHERAL IV DATA: Not applicable SIGNED BY: Aline Villaseñor RDMS October 19, 2023 9:52 AM [facility] 10-19-2023 History of Presen t illness Narrative Radiology Service Progress Note PATIENT NAME: Katey Rebolledo DATE OF SERVICE: October 19, 2023 TIME: 9:52 AM PATIENT IDENTITY VERIFICATION COMPLETED USING TWO (2) IDENTIFIERS: Name and Date of confirmed by patient verbally. FALL SCREENING: Has the patient had 2 falls in the last year or 1 fall with injury or currently using an Ambulatory Assistive Device (Walker, Cane, Wheelchair, Crutches, etc.)? No PATIENT GENDER DATA: Female. status: : No status: NO. PATIENT RELEVANT IMPLANT DATA REVIEWED: Not Applicable RADIOLOGY DEPARTMENT: Ultrasound PERIPHERAL IV DATA: Not applicable SIGNED BY: Aline Villaseñor RDMS October 19, 2023 9:52 AM documented in this encounter [facility] 10-12-2023 Note HNO ID: [id number] Author: Gisell Hooper APRN.CORPORATE TAX PREPARER Service: ? Author Type: Nurse Practitioner Type: Progress Notes Filed: 10/12/2023 12:22 PM Note Text: Katey Rebolledo is a 53 year old female who presents for problem visit of pelvic pain. wheel assembler used for this visit. HPI: History of hysterectomy. Reports pelvic pain. Started with itching in May - tested positive for ashley glabrata and was treated. Reports itching and odor as well. Pain causes dizziness at times. Feels that she is urinating frequently. Bowel movements are alternating with diarrhea and constipation. Also reports stress incontinence. 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 Pap smear (cervix) Allergic rhinitis, cause unspecified Asthma Deaf nonspeaking, not elsewhere classifiable HTN (hypertension) Umbilical hernia 03/21/2016 Variants of migraine, not elsewhere classified, without mention of intractable migraine without mention of status migrainosus PAST SURGICAL HISTORY Procedure Laterality Date DELIVERY ONLY , low transverse COLPOSCOPY CERVIX UPPER/ADJACENT VAGINA Colposcopy LAPS W/VAG HYSTERECT 250 GM/ANDRMVL TUBEAND/OVARIES 06/17/13 [facility], bilateral salpingectomy LIG/TRNSXJ FLP TUBE ABDL/VAG APPR UNI/BI Tubal ligation PAST SURGICAL HISTORY OF Rt ankle surgery REPAIR UMBILICAL HERNIA <5YRS INCAR/JANEL 03/21/2016 recurrent RPR UMBILICAL HRNA 5 YRS/> REDUCIBLE 8-6-13 FAMILY HISTORY Problem Relation Age of Onset Asthma Mother Hypertension Mother Lipids Mother Dementia Mother Coronary Artery Disease Father [place] ? age Hypertension Sister Social History Tobacco Use Smoking status: Former Packs/day: 0.50 Years: 4.00 Additional pack years: 0.00 Total pack years: 2.00 Types: Cigarettes Quit date: 12/14/1991 Years since quittin.8 Smokeless tobacco: Former Quit date: 11/12/2011 Vaping Use Vaping Use: Never used Substance Use Topics Alcohol use: Yes Comment: SOCIALLY Drug use: No Current Outpatient Medications Medication Sig rizatriptan (MAXALT) 10 mg tablet Take 1 tablet by mouth as needed for Migraine Headache (see administration instructions). Ok to repeat after 2 hrs if no relief x1. lisinopril (PRINIVIL) 5 mg tablet Take 1 tablet by mouth once daily. escitalopram oxalate (LEXAPRO) 10 mg tablet vit C/E/Zn/coppr/lutein/zeaxan (PRESERVISION AREDS-2 ORAL) Take by mouth. (Patient not taking: Reported on 10/12/2023) aspirin 81 mg chewable tablet Take by mouth. desloratadine (CLARINEX) 5 mg tablet Take by mouth. atorvastatin (LIPITOR) 40 mg tablet Take by mouth. loratadine (CLARITIN) 10 mg tablet Take 1 tablet by mouth once daily as needed. (Patient not taking: Reported on 08/07/2023) fluticasone (FLONASE) 50 mcg/actuation nasal spray Use 1-2 Sprays in each nostril once daily. (Patient not taking: Reported on 06/08/2023) ketotifen fumarate (ZADITOR) 0.025 % (0.035 %) ophthalmic solution One drop to each eye 2 to 3 times a day as needed. (Patient not taking: Reported on 06/08/2023) oxyCODONE-acetaminophen (PERCOCET) 5-325 mg tablet Take 1 tablet by mouth every 4 hours as needed. (Patient not taking: Reported on 06/08/2023) codeine-guaiFENesin (ROBITUSSIN AC) 10-100 mg/5 mL syrup Take 5-10 mL by mouth four times daily as needed for Cough. May cause drowsiness. (Patient not taking: Reported on 01/19/2023) azithromycin (ZITHROMAX Z-DANIEL) 250 mg tablet Take 2 tablets by mouth day one, then 1 tablet daily until gone. (Patient not taking: Reported on 01/19/2023) fluticasone-salmeterol HFA (ADVAIR HFA) 230-21 mcg/actuation inhaler Inhale 2 Puffs as instructed twice daily. Use with spacer. Rinse mouth out after use. (Patient not taking: Reported on 06/08/2023) albuterol HFA (PROVENTIL HFA, VENTOLIN HFA) 90 mcg/actuation inhaler Inhale 2 Puffs as instructed every 4 hours as needed (for cough, wheezing, chest tightness or shortness of breath. Use with spacer. ). (Patient not taking: Reported on 06/08/2023) EPINEPHrine (EPIPEN) 0.3 mg/0.3 mL (1:1,000) atIn Inject 0.3 mL intramuscularly as directed. FOR ALLERGIC REACTION. SEEK EMERGENCY MEDICAL CARE IMMEDIATELY AFTER USE. (Patient not taking: Reported on 01/19/2023) albuterol 2.5 mg /3 mL (0.083 %) nebulizer solution One ampule nebulized every 4 hours as needed for cough, wheezing, chest tightness or shortness of breath. Dx: asthma 493.00 (Patient not taking: Reported on 10/09/2023) No current facility-administered medications for this visit. Allergies As of Date: 10/12/2023 Allergen Noted Reaction ENVIRONMENTAL ALLERGIES [OTHER] 09/27/2006 (more content not included)... [facility] 10-12-2023 History of Presen t illness Narrative Katey Rebolledo is a 53 year old female who presents for problem visit of pelvic pain. wheel assembler used for this visit. HPI: History of hysterectomy. Reports pelvic pain. Started with itching in May - tested positive for ashley glabrata and was treated. Reports itching and odor as well. Pain causes dizziness at times. Feels that she is urinating frequently. Bowel movements are alternating with diarrhea and constipation. Also reports stress incontinence. 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 Pap smear (cervix) Allergic rhinitis, cause unspecified Asthma Deaf nonspeaking, not elsewhere classifiable HTN (hypertension) Umbilical hernia 03/21/2016 Variants of migraine, not elsewhere classified, without mention of intractable migraine without mention of status migrainosus PAST SURGICAL HISTORY Procedure Laterality Date DELIVERY ONLY , low transverse COLPOSCOPY CERVIX UPPER/ADJACENT VAGINA Colposcopy LAPS W/VAG HYSTERECT 250 GM/&RMVL TUBE&/OVARIES 06/17/13 [facility], bilateral salpingectomy LIG/TRNSXJ FLP TUBE ABDL/VAG APPR UNI/BI Tubal ligation PAST SURGICAL HISTORY OF Rt ankle surgery REPAIR UMBILICAL HERNIA <5YRS INCAR/JANEL 03/21/2016 recurrent RPR UMBILICAL HRNA 5 YRS/> REDUCIBLE 06-17-13 FAMILY HISTORY Problem Relation Age of Onset Asthma Mother Hypertension Mother Lipids Mother Dementia Mother Coronary Artery Disease Father [place] ? age Hypertension Sister Social History Tobacco Use Smoking status: Former Packs/day: 0.50 Years: 4.00 Additional pack years: 0.00 Total pack years: 2.00 Types: Cigarettes Quit date: 12/14/1991 Years since quittin.8 Smokeless tobacco: Former Quit date: 11/12/2011 Vaping Use Vaping Use: Never used Substance Use Topics Alcohol use: Yes Comment: SOCIALLY Drug use: No Current Outpatient Medications Medication Sig rizatriptan (MAXALT) 10 mg tablet Take 1 tablet by mouth as needed for Migraine Headache (see administration instructions). Ok to repeat after 2 hrs if no relief x1. lisinopril (PRINIVIL) 5 mg tablet Take 1 tablet by mouth once daily. escitalopram oxalate (LEXAPRO) 10 mg tablet vit C/E/Zn/coppr/lutein/zeaxan (PRESERVISION AREDS-2 ORAL) Take by mouth. (Patient not taking: Reported on 10/12/2023) aspirin 81 mg chewable tablet Take by mouth. desloratadine (CLARINEX) 5 mg tablet Take by mouth. atorvastatin (LIPITOR) 40 mg tablet Take by mouth. loratadine (CLARITIN) 10 mg tablet Take 1 tablet by mouth once daily as needed. (Patient not taking: Reported on 08/07/2023) fluticasone (FLONASE) 50 mcg/actuation nasal spray Use 1-2 Sprays in each nostril once daily. (Patient not taking: Reported on 06/08/2023) ketotifen fumarate (ZADITOR) 0.025 % (0.035 %) ophthalmic solution One drop to each eye 2 to 3 times a day as needed. (Patient not taking: Reported on 06/08/2023) oxyCODONE-acetaminophen (PERCOCET) 5-325 mg tablet Take 1 tablet by mouth every 4 hours as needed. (Patient not taking: Reported on 06/08/2023) codeine-guaiFENesin (ROBITUSSIN AC) 10-100 mg/5 mL syrup Take 5-10 mL by mouth four times daily as needed for Cough. May cause drowsiness. (Patient not taking: Reported on 01/19/2023) azithromycin (ZITHROMAX Z-DANIEL) 250 mg tablet Take 2 tablets by mouth day one, then 1 tablet daily until gone. (Patient not taking: Reported on 01/19/2023) fluticasone-salmeterol HFA (ADVAIR HFA) 230-21 mcg/actuation inhaler Inhale 2 Puffs as instructed twice daily. Use with spacer. Rinse mouth out after use. (Patient not taking: Reported on 06/08/2023) albuterol HFA (PROVENTIL HFA, VENTOLIN HFA) 90 mcg/actuation inhaler Inhale 2 Puffs as instructed every 4 hours as needed (for cough, wheezing, chest tightness or shortness of breath. Use with spacer. ). (Patient not taking: Reported on 06/08/2023) EPINEPHrine (EPIPEN) 0.3 mg/0.3 mL (1:1,000) atIn Inject 0.3 mL intramuscularly as directed. FOR ALLERGIC REACTION. SEEK EMERGENCY MEDICAL CARE IMMEDIATELY AFTER USE. (Patient not taking: Reported on 01/19/2023) albuterol 2.5 mg /3 mL (0.083 %) nebulizer solution One ampule nebulized every 4 hours as needed for cough, wheezing, chest tightness or shortness of breath. Dx: asthma 493.00 (Patient not taking: Reported on 10/09/2023) No current facility-administered medications for this visit. Allergies As of Date: 10/12/2023 Allergen Noted Reaction ENVIRONMENTAL ALLERGIES [OTHER] 09/27/2006 TORADOL [KETOROLAC TROMETHAMINE] 02/05/2013 Vomiting Fully Assessed 10/12/2023 REVIEW OF SYSTEMS Abdomen: No bloating, early satiety, indigestion, or increased flatulence. No abdominal pain, nausea, vomiting + alternating diarrhea and constipation Bladder: No dysuria, gross hematuria, urinary urgency + incontinence and frequency Breast: No breast lumps, nipple d/c, overlying skin changes, redness or skin retraction. Expanded ROS: N/A Allergies and current medication updated:Yes EXAM: Wt 179 lb 12.8 oz (81.6kg) LMP 01/19/2013 GENERAL: pleasant, female in no apparent distress HEENT: Normocephalic, atraumatic, mucus membranes moist, and no lesions DERMATOLOGY: Normal, without lesions, non-icteric, and non-hirsute CHEST: Normal inspiratory effort ABDOMEN: soft, non-tender, and no masses No signs of acute abdominal distress PELVIC: external genitalia normal, normal Bartholin's glands, urethra, [place]'s glands, no vulvar lesions, no cervical lesions, good vaginal support, physiologic discharge present, normal appearing perineal body and perianal region BIMANUAL: uterus normal size, shape and consistency, no adnexal masses, and non-tender + tenderness to palpation of right lower pelvic region NEURO: alert and oriented x3,exam grossly non-focal EXTREMITIES: normal ASSESSMENT AND PLAN: Pelvic pain in female - ICD9: 625.9, ICD10: R10.2 (primary diagnosis) - Yeast and BV testing - Pelvic ultrasound - Ibuprofen, Tylenol, or warm compresses for pain - US FEMALE PELVIS TRANSVAG - ASHLEY/TRICHOMONAS NAAT - BACTERIAL VAGINOSIS NAAT Vaginal odor - ICD9: 625.8, ICD10: N89.8 Vaginal itching - ICD9: 698.1, ICD10: N89.8 - BV/yeast testing Urinary frequency - ICD9: 788.41, ICD10: R35.0 - Trace amounts of blood/protein on UA - Urine culture sent Stress incontinence - ICD9: [id number], ICD10: N39.3 - Urine culture sent - Consider urology or uro process control board operator referral Constipation, unspecified constipation type - ICD9: 564.00, ICD10: K59.00 - Pelvic ultrasound ordered - Consider GI referral Diarrhea, unspecified type - ICD9: 787.91, ICD10: R19.7 - Consider GI referral Gisell Hooper APRN.CNP Medical Decision Making: Problems: Moderate: 1+ chronic illnesses with change Data: Unique test(s) ordered: 3+ Risk: Low: Low risk from testing/treatment Medical Decision Making Level: 4 - Moderate documented in this encounter [facility] 10-09-2023 Note HNO ID: [id number] Author: Vee Guerin, DO Service: ? Author Type: Physician Type: Progress Notes Filed: 10/09/2023 4:03 PM Note Text: [facility] [place] DEPARTMENT OF VASCULAR SURGERY OUTPATIENT VISIT DATE October 09, 2023 OUTPATIENT VISIT TYPE ESTABLISHED SERVICE DATE: 10/09/2023 SERVICE TIME: 11:29 AM PRIMARY CARE PHYSICIAN: John Cook MD HISTORY OF PRESENT ILLNESS: Ms. Rebolledo is a 53 year old female who presents today for a vascular surgery follow-up visit for vascular lab testing. She continues to have right arm weakness PAST MEDICAL HISTORY Diagnosis Date Abnormal glandular Papanicolaou smear of cervix Abn. Pap smear (cervix) Allergic rhinitis, cause unspecified Asthma Deaf nonspeaking, not elsewhere classifiable HTN (hypertension) Umbilical hernia 03/21/2016 Variants of migraine, not elsewhere classified, without mention of intractable migraine without mention of status migrainosus PAST SURGICAL HISTORY Procedure Laterality Date DELIVERY ONLY , low transverse COLPOSCOPY CERVIX UPPER/ADJACENT VAGINA Colposcopy LAPS W/VAG HYSTERECT 250 GM/ANDRMVL TUBEAND/OVARIES 06/17/13 [facility], bilateral salpingectomy LIG/TRNSXJ FLP TUBE ABDL/VAG APPR UNI/BI Tubal ligation PAST SURGICAL HISTORY OF Rt ankle surgery REPAIR UMBILICAL HERNIA <5YRS INCAR/JANEL 03/21/2016 recurrent RPR UMBILICAL HRNA 5 YRS/> REDUCIBLE 8-6-13 SOCIAL HISTORY Social History Tobacco Use Smoking status: Former Packs/day: 0.50 Years: 4.00 Additional pack years: 0.00 Total pack years: 2.00 Types: Cigarettes Quit date: 12/14/1991 Years since quittin.8 Smokeless tobacco: Former Quit date: 11/12/2011 Vaping Use Vaping Use: Never used Substance Use Topics Alcohol use: Yes Comment: SOCIALLY Drug use: No MEDICATIONS: escitalopram oxalate (LEXAPRO) 10 mg tablet aspirin 81 mg chewable tablet Take by mouth. desloratadine (CLARINEX) 5 mg tablet Take by mouth. atorvastatin (LIPITOR) 40 mg tablet Take by mouth. rizatriptan (MAXALT) 10 mg tablet Take 1 tablet by mouth as needed for Migraine Headache (see administration instructions). Ok to repeat after 2 hrs if no relief x1. lisinopril (PRINIVIL) 5 mg tablet Take 1 tablet by mouth once daily. vit C/E/Zn/coppr/lutein/zeaxan (PRESERVISION AREDS-2 ORAL) Take by mouth. loratadine (CLARITIN) 10 mg tablet Take 1 tablet by mouth once daily as needed. (Patient not taking: Reported on 08/07/2023) fluticasone (FLONASE) 50 mcg/actuation nasal spray Use 1-2 Sprays in each nostril once daily. (Patient not taking: Reported on 06/08/2023) ketotifen fumarate (ZADITOR) 0.025 % (0.035 %) ophthalmic solution One drop to each eye 2 to 3 times a day as needed. (Patient not taking: Reported on 06/08/2023) oxyCODONE-acetaminophen (PERCOCET) 5-325 mg tablet Take 1 tablet by mouth every 4 hours as needed. (Patient not taking: Reported on 06/08/2023) codeine-guaiFENesin (ROBITUSSIN AC) 10-100 mg/5 mL syrup Take 5-10 mL by mouth four times daily as needed for Cough. May cause drowsiness. (Patient not taking: Reported on 01/19/2023) azithromycin (ZITHROMAX Z-DANIEL) 250 mg tablet Take 2 tablets by mouth day one, then 1 tablet daily until gone. (Patient not taking: Reported on 01/19/2023) fluticasone-salmeterol HFA (ADVAIR HFA) 230-21 mcg/actuation inhaler Inhale 2 Puffs as instructed twice daily. Use with spacer. Rinse mouth out after use. (Patient not taking: Reported on 06/08/2023) albuterol HFA (PROVENTIL HFA, VENTOLIN HFA) 90 mcg/actuation inhaler Inhale 2 Puffs as instructed every 4 hours as needed (for cough, wheezing, chest tightness or shortness of breath. Use with spacer. ). (Patient not taking: Reported on 06/08/2023) EPINEPHrine (EPIPEN) 0.3 mg/0.3 mL (1:1,000) atIn Inject 0.3 mL intramuscularly as directed. FOR ALLERGIC REACTION. SEEK EMERGENCY MEDICAL CARE IMMEDIATELY AFTER USE. (Patient not taking: Reported on 01/19/2023) albuterol 2.5 mg /3 mL (0.083 %) nebulizer solution One ampule nebulized every 4 hours as needed for cough, wheezing, chest tightness or shortness of breath. Dx: asthma 493.00 (Patient not taking: Reported on 10/09/2023) ALLERGIES: ALLERGIES Allergen Reactions Environmental Aller* Cats, Dogs, dust mites, trees, grasses, weeds, ragweed Toradol [Ketorolac * Vomiting PHYSICAL EXAM: BP 139/88 (BP Site: Left Arm, BP Position: Sitting, BP Cuff Size: Regular Adult) Pulse 76 LMP 01/19/2013 SpO2 98% Gen- no distress Ext- no significant edema Diagnostic tests reviewed for today's visit: Most recent labs Most recent imaging Carotid-RIGHT SIDE Internal carotid artery: 20-39% stenosis. Vertebral artery: Patent and antegrade flow noted. Subclavian artery: Plaque visualized without evidence of hemodynamically significant stenosis. LEFT SIDE Common carotid artery: Endarterectomy patch at distal measuring 0.90 cm. Internal carotid artery: (more content not included)... [facility] 08-07-2023 Note HNO ID: [id number] Author: Vee Guerin, DO Service: ? Author Type: Physician Type: Progress Notes Filed: 08/07/2023 5:09 PM Note Text: [facility] [place] DEPARTMENT OF VASCULAR SURGERY OUTPATIENT VISIT DATE August 07, 2023 OUTPATIENT VISIT TYPE CONSULTATION SERVICE DATE: 08/07/2023 SERVICE TIME: 3:04 PM PRIMARY CARE PHYSICIAN: John Cook MD REFERRING PROVIDER: SELF Consult requested for an opinion regarding the evaluation and treatment of the above. My final impression and recommendations will be communicated back to the requesting physician by way of the shared medical record or letter via US mail. CHIEF COMPLAINT: Patient presents with: New Patient History of Present Illness: Patient is a 52 year old White female presenting for consultation, evaluation and possible treatment of right sided pain and cramping. She does have swelling in her right leg. She is having pain, weakness, stiffness in right arm and right leg. She has a history of stroke which affected her right side. Function has improved in the right side. She recently moved from [place] and is getting her records sent to [place]. She is deaf and history obtained with assistance of film tests checker. She is currently working at [employer] and notices that she drops things with right arm frequently. This is happening more often PAIN ASSESSMENT: PAIN EVALUATION No data found in the last 1 encounters. Obstetric History T3 L4 SAB0 IAB0 Ectopic0 Multiple0 Live Births4 Name of Baby 1: ROMA Date: 03/22/93 GA: 40w0d Delivery: VAGINAL Apgar1: Not recorded Apgar5: Not recorded Living: Living Name of Baby 2: LEELEE Date: 05/17/95 GA: 38w0d Delivery: VAGINAL Apgar1: Not recorded Apgar5: Not recorded Living: Living Name of Baby 3: SUSHIL Date: 08/06/97 GA: 36w0d Delivery: VAGINAL Apgar1: Not recorded Apgar5: Not recorded Living: Living Name of Baby 4: PAULETTE Date: 09/18/98 GA: 39w0d Delivery: VAGINAL Apgar1: Not recorded Apgar5: Not recorded Living: Living Name of Baby 5: Rina Date: 01/31/07 GA: 31w0d Delivery: SECTION Apgar1: Not recorded Apgar5: Not recorded Living: Not recorded Duration of Symptoms: Progressive PREVIOUS TESTS: None CARDIOVASCULAR RISK FACTORS: Prior Smoking and History of CVA PAST MEDICAL HISTORY Diagnosis Date Abnormal glandular Papanicolaou smear of cervix Abn. Pap smear (cervix) Allergic rhinitis, cause unspecified Asthma Deaf nonspeaking, not elsewhere classifiable HTN (hypertension) Umbilical hernia 03/21/2016 Variants of migraine, not elsewhere classified, without mention of intractable migraine without mention of status migrainosus PAST SURGICAL HISTORY Procedure Laterality Date DELIVERY ONLY , low transverse COLPOSCOPY CERVIX UPPER/ADJACENT VAGINA Colposcopy LAPS W/VAG HYSTERECT 250 GM/ANDRMVL TUBEAND/OVARIES 06/17/13 LAVH, bilateral salpingectomy LIG/TRNSXJ FLP TUBE ABDL/VAG APPR UNI/BI Tubal ligation PAST SURGICAL HISTORY OF Rt ankle surgery REPAIR UMBILICAL HERNIA <5YRS INCAR/JANEL 03/21/2016 recurrent RPR UMBILICAL HRNA 5 YRS/> REDUCIBLE 06-17-13 SOCIAL HISTORY: Social History Tobacco Use Smoking status: Former Packs/day: 0.50 Years: 4.00 Additional pack years: 0.00 Total pack years: 2.00 Types: Cigarettes Quit date: 12/14/1991 Years since quittin.6 Smokeless tobacco: Former Quit date: 11/12/2011 Vaping Use Vaping Use: Never used Substance Use Topics Alcohol use: Yes Comment: SOCIALLY Drug use: No FAMILY HISTORY Problem Relation Age of Onset Asthma Mother Hypertension Mother Lipids Mother Dementia Mother Coronary Artery Disease Father [place] ? age Hypertension Sister MEDICATIONS: vit C/E/Zn/coppr/lutein/zeaxan (PRESERVISION AREDS-2 ORAL) Take by mouth. aspirin 81 mg chewable tablet Take by mouth. desloratadine (CLARINEX) 5 mg tablet Take by mouth. atorvastatin (LIPITOR) 40 mg tablet Take by mouth. rizatriptan (MAXALT) 10 mg tablet Take 1 tablet by mouth as needed for Migraine Headache (see administration instructions). Ok to repeat after 2 hrs if no relief x1. loratadine (CLARITIN) 10 mg tablet Take 1 tablet by mouth once daily as needed. fluticasone (FLONASE) 50 mcg/actuation nasal spray Use 1-2 Sprays in each nostril once daily. (Patient not taking: Reported on 06/08/2023) lisinopril (PRINIVIL) 5 mg tablet Take 1 tablet by mouth once daily. ketotifen fumarate (ZADITOR) 0.025 % (0.035 %) ophthalmic solution One drop to each eye 2 to 3 times a day as needed. (Patient not taking: Reported on 06/08/2023) oxyCODONE-acetaminophen (PERCOCET) 5-325 mg tablet Take 1 tablet by mouth every 4 hours as needed. (Patient not taking: Reported on 06/08/2023) codeine-guaiFENesin (ROBITUSSIN AC) 10-100 mg/5 mL syrup Take 5-10 mL by mouth four times daily as needed for Cough. May cause drowsiness. (Patie (more content not included)... [facility] 06-08-2023 Note HNO ID: [id number] Author: Yaquelin Falcon APRN.CORPORATE TAX PREPARER Service: ? Author Type: Nurse Practitioner Type: Progress Notes Filed: 06/08/2023 5:00 PM Note Text: Collection Support Specialist offered: Patient declines. Accompanied by assignment editor. Katey Rebolledo is a 52 year old female who presents for vaginal pruritis, burning, odor and discharge for 4 month(s). Cramping to left side. C glabrata 01/2023 - did not take fluconazole because she did not see it in MyChart. Vaginal discharge: white, thick. Itching: YES Dyspareunia: NA - last 2020 Fever/chills: No Abdominal pain: Yes, Bladder: frequency, urgency, dysuria for past year. States has never had urine testing - PCP at [place] Bowel: Constipation - bowel movement every morning but sometimes it is hard and it may take a couple attempts to pass. Any new sexual partners or concern for STD exposure: No Are you currently taking any medications to treat vaginitis: No - has taken Monistat oral medication ? probiotic Contraception: hysterectomy, ovary sparing Past medical, surgical, social history, medications and allergies reviewed and updated. OBJECTIVE: BP 120/80 Wt 175 lb 6.4 oz (79.6kg) LMP 01/19/2013 GENERAL: Well developed, well nourished in no apparent distress ABDOMEN: soft, no masses, and mild tenderness mid left side PELVIC: external genitalia normal, normal Bartholin's glands, urethra, [place]'s glands, no vulvar lesions, small amount white discharge present, normal appearing perineal body and perianal region, cervix surgically absent BIMANUAL: no adnexal masses, uterus surgically absent, and non tender - cramping for few seconds after exam complete to left side. ASSESSMENT/PLAN: 1. Vaginal itching - ICD9: 698.1, ICD10: N89.8 (primary diagnosis) - Positive for c glabrata 01/2023 - she did not take prescribed fluconazole. Discussed that Ashley glabrata is a resistant form of yeast and difficult to treat. Will treat with Monistat 7 for 2 weeks followed by vaginal boric acid for 3 weeks. Recommend women's health probiotic and given written information on ordering. - BACTERIAL VAGINOSIS NAAT - ASHLEY/TRICHOMONAS NAAT 2. Vaginal odor - ICD9: 625.8, ICD10: N89.8 See above - BACTERIAL VAGINOSIS NAAT - ASHLEY/TRICHOMONAS NAAT 3. Pelvic pain in female - ICD9: 625.9, ICD10: R10.2 - BACTERIAL VAGINOSIS NAAT - ASHLEY/TRICHOMONAS NAAT -Left lower quadrant. Discussed causes of left-sided pain including kidney ovary and bowel. She has a bowel movement every day but then it is very hard and it takes several attempts to pass the stool. Discussed that yeast can also cause pelvic pain. If pain persists after treatment for yeast and decrease in hard stool, she should be evaluated in the office. 4. Urinary urgency - ICD9: 788.63, ICD10: R39.15 - x 1 year - URINALYSIS WITH MICROSCOPIC, REFLEX CULTURE 5. Urinary frequency - ICD9: 788.41, ICD10: R35.0 - x 1 year - URINALYSIS WITH MICROSCOPIC, REFLEX CULTURE 6. Dysuria - ICD9: 788.1, ICD10: R30.0 - x 1 yr - URINALYSIS WITH MICROSCOPIC, REFLEX CULTURE Will notify of results. Follow- up as needed. Yaquelin Falcon, ROSI.CORPORATE TAX PREPARER Medical Decision Making: Problems: Moderate: 1+ chronic illnesses with change Data: Unique test(s) ordered: 1 Risk: Moderate: Drug management and Moderate risk from testing/treatment Medical Decision Making Level: 4 - Moderate [facility] 01-22-2023 Miscellaneous Notes January 23, 2023 PID: [id number] Katey Rebolledo [address] [place] [id number] Dear Ms. Rebolledo, We are pleased to inform you that the results of your recent breast imaging exam on 01/19/2023 are normal. Early detection of cancer is very important. We also understand recommendations regarding breast cancer screening are controversial. Please discuss with your primary care provider which strategy is best for you and whether a mammogram is right for you. Your imaging studies and report will be kept on file at [facility] as part of your permanent medical record and are available for your continuing care. Thank you for allowing us to help in meeting your health care needs. Sincerely, Dr. Espinoza Interpreting Radiologist [facility] (Normal over 40) documented in this encounter [facility] 01-19-2023 Note HNO ID: [id number] Author: RT Ruchi(R) Service: Radiology Author Type: Networker Type: Progress Notes Filed: 01/19/2023 10:52 AM Note Text: Radiology Service Progress Note PATIENT NAME: Katey Rebolledo DATE OF SERVICE: January 19, 2023 TIME: 10:52 AM PATIENT IDENTITY VERIFICATION COMPLETED USING TWO (2) IDENTIFIERS: Name and Date of confirmed by patient verbally. FALL SCREENING: Has the patient had 2 falls in the last year or 1 fall with injury or currently using an Ambulatory Assistive Device (Walker, Cane, Wheelchair, Crutches, etc.)? No PATIENT GENDER DATA: Female. status: : No status: NO. PATIENT RELEVANT IMPLANT DATA REVIEWED: Yes RADIOLOGY DEPARTMENT: Mammography PERIPHERAL IV DATA: Not applicable SIGNED BY: RT Ruchi(R) January 19, 2023 10:52 AM [facility] 01-19-2023 Note HNO ID: [id number] Author: Ade Slade MD Service: ? Author Type: Physician Type: Progress Notes Filed: 01/19/2023 10:14 AM Note Text: Katey is a 52 year old who presents for an annual gynecologic exam without complaints. Some vaginal odor Postmenopausal: likely, s/p hyst HRT use: No. 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 Pap smear (cervix) Allergic rhinitis, cause unspecified Asthma Deaf nonspeaking, not elsewhere classifiable HTN (hypertension) Umbilical hernia 03/21/2016 Variants of migraine, not elsewhere classified, without mention of intractable migraine without mention of status migrainosus PAST SURGICAL HISTORY Procedure Laterality Date DELIVERY ONLY , low transverse COLPOSCOPY CERVIX UPPER/ADJACENT VAGINA Colposcopy LAPS W/VAG HYSTERECT 250 GM/ANDRMVL TUBEAND/OVARIES 06/17/13 LAVH, bilateral salpingectomy LIG/TRNSXJ FLP TUBE ABDL/VAG APPR UNI/BI Tubal ligation PAST SURGICAL HISTORY OF Rt ankle surgery REPAIR UMBILICAL HERNIA <5YRS INCAR/JANEL 03/21/2016 recurrent RPR UMBILICAL HRNA 5 YRS/> REDUCIBLE 06-17-13 FAMILY HISTORY Problem Relation Age of Onset Asthma Mother Hypertension Mother Lipids Mother Coronary Artery Disease Father [place] ? age Hypertension Sister SOCIAL HISTORY Social History Tobacco Use Smoking status: Former Packs/day: 0.50 Years: 4.00 Pack years: 2.00 Types: Cigarettes Quit date: 12/14/1991 Years since quittin.1 Smokeless tobacco: Former Quit date: 11/12/2011 Substance Use Topics Alcohol use: Yes Comment: SOCIALLY Drug use: No REVIEW OF SYSTEMS Abdomen: No abdominal pain, nausea, vomiting, diarrhea, or constipation. No bloating, early satiety, indigestion, or increased flatulence. Bladder: occas urgency Breast: No breast lumps, nipple d/c, overlying skin changes, redness or skin retraction Allergies and current medication updated:Yes EXAM: LMP 01/19/2013 GENERAL: pleasant, female in no apparent distress HEENT: Normocephalic, atraumatic, mucus membranes moist, and no lesions NECK: Supple, full range of motion, no adenopathy, and thyroid normal DERMATOLOGY: Normal, without lesions, non-icteric, and non-hirsute BREAST: soft, non-tender, symmetric, no dominant mass, normal nipple-areolar complex, no lymphadenopathy, and no nipple discharge CHEST: Normal inspiratory effort ABDOMEN: soft, non-tender, and no masses PELVIC: external genitalia normal, normal Bartholin's glands, urethra, [place]'s glands, no vulvar lesions, good vaginal support, physiologic discharge present, normal appearing perineal body and perianal region, cervix surgically absent BIMANUAL: no adnexal masses, non-tender, and uterus surgically absent RECTOVAGINAL: deferred. NEURO: alert and oriented x3,exam grossly non-focal EXTREMITIES: normal ASSESSMENT/PLAN: 1) Health maintenance: Pap/HPV screening no longer needed Mammogram ordered Colon cancer screening: has not had, declines today, wants to discuss w/ PCP 2) Follow up one year or sooner as needed vaginitis swab due to c/o odor Ade Slade MD [facility] 01-19-2023 History of Presen t illness Narrative Radiology Service Progress Note PATIENT NAME: Katey Rebolledo DATE OF SERVICE: January 19, 2023 TIME: 10:52 AM PATIENT IDENTITY VERIFICATION COMPLETED USING TWO (2) IDENTIFIERS: Name and Date of confirmed by patient verbally. FALL SCREENING: Has the patient had 2 falls in the last year or 1 fall with injury or currently using an Ambulatory Assistive Device (Walker, Cane, Wheelchair, Crutches, etc.)? No PATIENT GENDER DATA: Female. status: : No status: NO. PATIENT RELEVANT IMPLANT DATA REVIEWED: Yes RADIOLOGY DEPARTMENT: Mammography PERIPHERAL IV DATA: Not applicable SIGNED BY: RT Ruchi(R) January 19, 2023 10:52 AM documented in this encounter [facility] 01-19-2023 Miscellaneous Notes Addended by: ADE SLADE on: 01/19/2023 10:39 AM Modules accepted: Orders Addended by: CHERYL FLORENTINO MA on: 01/19/2023 10:31 AM Modules accepted: Orders documented in this encounter [facility] 01-19-2023 Instructions Ade Slade MD - 01/19/2023 10:05 AM EST How To Perform Pelvic Floor (Kegel) Exercises These exercises help to strengthen the pelvic floor muscles and can help improve bladder control for women. 1. You should have been instructed in the office how to contract these muscles. At home, you can insert two fingers in the vagina and feel the contraction of these muscles as you squeeze. We call these muscles the pelvic floor because they help support the pelvic organs, especially during coughing and sneezing. Squeezing the pelvic floor while standing feels like you are lifting the area around the vagina, and will interrupt the stream of urine while voiding. Once you are certain which muscles to use, do not exercise while urinating. Make sure you are not bearing down, squeezing your buttocks, or straining abdominally: these are not the muscles to be exercised. You may wish to place hands on your buttock muscles to keep these muscles relaxed while performing the exercises. 2. Squeeze these muscles as hard as you can for a slow count of five, eventually working up to a slow count of ten. Rest for 15 seconds, and then start another contraction. At first. these muscles may feel sore, just as other muscles may feel sore after exercise. 3. You should perform 50 squeezes every day: make sure every squeeze count by consuelo as hard as you can! Many women try to do these exercises in sets of five or ten at a time. Remind yourself to do these exercises by starting them every time you are waiting at a red light, watching a television commercial, or on hold on the telephone. If you are having trouble concentrating, you may want to set aside a special time to perform sets of pelvic floor exercises. 4. In addition to the long, hard contractions you are doing try doing some quick flicks of these muscles throughout the day. 5. You should be seen in the office after starting these exercises to make sure you are performing the contraction correctly: you may have never known how to contract these muscles before starting pelvic floor exercises, and many patients mistakenly exercise the wrong muscles. If you still feel frustrated about which muscles to use ask us for help. There are physical therapy specialists who work with pelvic floor muscles. 6. Work hard! As with any exercise program, improvement often is related to how faithfully you adhere to your exercise program. Pelvic floor exercises do not have the side effects and expense associated with other treatments for urinary incontinence, and have been known to help with severe stress incontinence. It may take several months to see the full effect of your exercise program: if you are easily discouraged, see your doctor or doctor at regular visits to assess what progress you are making. Techniques to avoid urinary accidents: Empty your bladder regularly and prior to physical activity. Avoid activity that causes leakage, if possible. Avoid or moderate the intake of alcohol and caffeine products. Try to restrict fluids prior to planned activities. Wear appropriate protection. Prevent chronic coughing which can cause a loss of urinary control. Ways to prevent chronic coughing include treating asthma, restricting smoking, and removing allergy-causing agents from your environment. documented in this encounter [facility] 01-19-2023 History of Presen t illness Narrative Katey is a 52 year old who presents for an annual gynecologic exam without complaints. Some vaginal odor Postmenopausal: likely, s/p hyst HRT use: No. 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 Pap smear (cervix) Allergic rhinitis, cause unspecified Asthma Deaf nonspeaking, not elsewhere classifiable HTN (hypertension) Umbilical hernia 03/21/2016 Variants of migraine, not elsewhere classified, without mention of intractable migraine without mention of status migrainosus PAST SURGICAL HISTORY Procedure Laterality Date DELIVERY ONLY , low transverse COLPOSCOPY CERVIX UPPER/ADJACENT VAGINA Colposcopy LAPS W/VAG HYSTERECT 250 GM/&RMVL TUBE&/OVARIES 06/17/13 LAVH, bilateral salpingectomy LIG/TRNSXJ FLP TUBE ABDL/VAG APPR UNI/BI Tubal ligation PAST SURGICAL HISTORY OF Rt ankle surgery REPAIR UMBILICAL HERNIA <5YRS INCAR/JANEL 03/21/2016 recurrent RPR UMBILICAL HRNA 5 YRS/> REDUCIBLE 8-6-13 FAMILY HISTORY Problem Relation Age of Onset Asthma Mother Hypertension Mother Lipids Mother Coronary Artery Disease Father [place] ? age Hypertension Sister SOCIAL HISTORY Social History Tobacco Use Smoking status: Former Packs/day: 0.50 Years: 4.00 Pack years: 2.00 Types: Cigarettes Quit date: 12/14/1991 Years since quittin.1 Smokeless tobacco: Former Quit date: 11/12/2011 Substance Use Topics Alcohol use: Yes Comment: SOCIALLY Drug use: No REVIEW OF SYSTEMS Abdomen: No abdominal pain, nausea, vomiting, diarrhea, or constipation. No bloating, early satiety, indigestion, or increased flatulence. Bladder: occas urgency Breast: No breast lumps, nipple d/c, overlying skin changes, redness or skin retraction Allergies and current medication updated:Yes EXAM: LMP 01/19/2013 GENERAL: pleasant, female in no apparent distress HEENT: Normocephalic, atraumatic, mucus membranes moist, and no lesions NECK: Supple, full range of motion, no adenopathy, and thyroid normal DERMATOLOGY: Normal, without lesions, non-icteric, and non-hirsute BREAST: soft, non-tender, symmetric, no dominant mass, normal nipple-areolar complex, no lymphadenopathy, and no nipple discharge CHEST: Normal inspiratory effort ABDOMEN: soft, non-tender, and no masses PELVIC: external genitalia normal, normal Bartholin's glands, urethra, [place]'s glands, no vulvar lesions, good vaginal support, physiologic discharge present, normal appearing perineal body and perianal region, cervix surgically absent BIMANUAL: no adnexal masses, non-tender, and uterus surgically absent RECTOVAGINAL: deferred. NEURO: alert and oriented x3,exam grossly non-focal EXTREMITIES: normal ASSESSMENT/PLAN: 1) Health maintenance: Pap/HPV screening no longer needed Mammogram ordered Colon cancer screening: has not had, declines today, wants to discuss w/ PCP 2) Follow up one year or sooner as needed vaginitis swab due to c/o odor Ade Slade MD documented in this encounter [facility] documented as of this encounter (statuses as of 01/19/2023) [facility] History of Past illness Narrative* Problem Noted Date Resolved Date Hypokalemia 01/28/2010 01/06/2014 Toxic effect of venom(989.5) 09/08/2008 Neoplasm of uncertain behavior of skin 8 10/18/2012 Cough 05/25/2008 10/18/2012 PLANTAR Fasciitis 04/25/2007 10/18/2012 Transient hypertension of , antepartum 01/26/2007 02/06/2007 Supervision of other normal 11/07/2006 02/06/2007 documented as of this encounter (statuses as of 01/24/2023) [facility] History of Past illness Narrative* Problem Noted Date Diagnosed Date Resolved Date Hypokalemia 01/28/2010 01/06/2014 Toxic effect of venom(989.5) 09/08/2008 10/26/2008 Neoplasm of uncertain behavior of skin 08/07/2008 10/18/2012 Cough 05/25/2008 10/18/2012 PLANTAR Fasciitis 04/25/2007 10/18/2012 Transient hypertension of pr egnancy, antepartum 01/26/2007 02/06/2007 Supervision of other normal 11/07/2006 02/06/2007 documented as of this encounter (statuses as of 09/15/2023) [facility] History of Past illness Narrative* Problem Noted Date Diagnosed Date Resolved Date Hypokalemia 01/28/2010 01/06/2014 Toxic effect of venom(989.5) 09/08/2008 10/26/2008 Neoplasm of uncertain behavior of skin 08/07/2008 10/18/2012 Cough 05/25/2008 10/18/2012 PLANTAR Fasciitis 04/25/2007 10/18/2012 Transient hypertension of pr egnancy, antepartum 01/26/2007 02/06/2007 Supervision of other normal 11/07/2006 02/06/2007 documented as of this encounter (statuses as of 10/12/2023) [facility] History of Past illness Narrative* Problem Noted Date Diagnosed Date Resolved Date Hypokalemia 01/28/2010 01/06/2014 Toxic effect of venom(989.5) 09/08/2008 10/26/2008 Neoplasm of uncertain behavior of skin 08/07/2008 10/18/2012 Cough 05/25/2008 10/18/2012 PLANTAR Fasciitis 04/25/2007 10/18/2012 Transient hypertension of pr egnancy, antepartum 01/26/2007 02/06/2007 Supervision of other normal 11/07/2006 02/06/2007 documented as of this encounter (statuses as of 10/20/2023) [address]19-2010 History of Past illness Narrative* Problem Noted Date Diagnosed Date Resolved Date Hypokalemia 01/28/2010 01/06/2014 Toxic effect of venom(989.5) 09/08/2008 10/26/2008 Neoplasm of uncertain behavior of skin 08/07/2008 10/18/2012 Cough 05/25/2008 10/18/2012 PLANTAR Fasciitis 04/25/2007 10/18/2012 Transient hypertension of pr egnancy, antepartum 01/26/2007 02/06/2007 Supervision of other normal 11/07/2006 02/06/2007 documented as of this encounter (statuses as of 10/25/2023) [place] [id number] History of Past illness Narrative* Problem Noted Date Diagnosed Date Resolved Date Hypokalemia 01/28/2010 01/06/2014 Toxic effect of venom(989.5) 09/08/2008 10/26/2008 Neoplasm of uncertain behavior of skin 08/07/2008 10/18/2012 Cough 05/25/2008 10/18/2012 PLANTAR Fasciitis 04/25/2007 10/18/2012 Transient hypertension of pr egnancy, antepartum 01/26/2007 02/06/2007 Supervision of other normal 11/07/2006 02/06/2007 documented as of this encounter (statuses as of 12/20/2023) [facility] [place] [facility] Diagnosis Encounter for gynecological examination (general) (routine) without abnormal findings- Primary Encounter for screening mammogram for breast cancer Vaginal irritation Unspecified noninflammatory disorder of vagina [facility] [place] [facility] Diagnosis Encounter for gynecological examination (general) (routine) without abnormal findings Encounter for screening mammogram for breast cancer [facility] [place] [facility] Diagnosis Pelvic pain in female- Primary Unspecified symptom associated with female genital organs Vaginal odor Unspecified symptom associated with female genital organs Urinary frequency Stress incontinence Female stress incontinence Vaginal itching Pruritus of genital organs Constipation, unspecified constipation type Diarrhea, unspecified type [facility] Diagnosis Pelvic pain in female Unspecified symptom associated with female genital organs documented in this encounter [facility] for referral (narrative)* Diagnostic Procedure Only (Routine) - Closed Specialty Diagnoses / Procedures Referred By Contac t Referred To Contact BR IMAGING Diagnoses Encounter for gynecological examination (general) (routine) without abnormal findings Encounter for screening mammogram for breast cancer Procedures LISSA SCREENING SCREENING MAMMOGRAPHY BI 2-VIEW BREAST INC CAD Ade Slade MD [address] [place] [address] [facility] [address] [place] [address] Referral ID Status Reason Start Date Expiration Date V isits Requested Visits Authorized [id number] Closed Auto-Generate d Referral 01/19/2023 02/18/2024 1 1 [facility] for referral (narrative)* Diagnostic Procedure Only (Routine) - Closed Specialty Diagnoses / Procedures Referred By Contac t Referred To Contact BR IMAGING Diagnoses Encounter for gynecological examination (general) (routine) without abnormal findings Encounter for screening mammogram for breast cancer Procedures LISSA SCREENING SCREENING MAMMOGRAPHY BI 2-VIEW BREAST INC Ade Garcia MD [address] [place] [address] [facility] [address] [place] [address] Referral ID Status Reason Start Date Expiration Date V isits Requested Visits Authorized [id number] Closed Auto-Generate d Referral 01/19/2023 02/18/2024 1 1 [facility] for referral (narrative)* Diagnostic Procedure Only (Routine) - Authorized Specialty Diagnoses / Procedures Referred By Contac t Referred To Contact US IMAGING Diagnoses Pelvic pain in female Procedures US FEMALE PELVIS TRANSVAG US TRANSVAGINAL Gisell Hooper APRN.CORPORATE TAX PREPARER [address] [place] [address] [place] [address] Referral ID Status Reason Start Date Expiration Date Visits Requested Visits Authorized [id number] Authorized Auto-Generat ed Referral 10/12/2023 11/10/2024 1 1 [facility] Diagnostic Procedure Only (Routine) - Closed Specialty Diagnoses / Procedures Referred By Rashawn sales Referred To Contact BR IMAGING Diagnoses Encounter for gynecological examination (general) (routine) without abnormal findings Encounter for screening mammogram for breast cancer Procedures LISSA SCREENING SCREENING MAMMOGRAPHY BI 2-VIEW BREAST INC Ade Garcia MD [address] [place] [address] [facility] Imaging [address] [place] [address] Referral ID Status Reason Start Date Expiration Date V isits Requested Visits Authorized [id number] Closed Auto-Generate d Referral 01/19/2023 02/18/2024 1 1 [facility] Summary Purpose Family History No Family History Records Found Advance Directives No Advanced Directives Records Found Additional Source Comments Source Comments (unrecognize d section and content) In the event this informatio n is protected by the Federal Confidentiality of Alcohol and Drug Abuse Patient Records regulations: The Federal rules restrict any use of the information to criminally investigate or prosecute any alcohol or drug abuse patient.[facility] the event this information is protected by the Federal Confidentiality of Alcohol and Drug Abuse Patient Records regulations: The Federal rules restrict any use of the information to criminally investigate or prosecute any alcohol or drug abuse patient.[facility] the event this information is protected by the Federal Confidentiality of Alcohol and Drug Abuse Patient Records regulations: The Federal rules restrict any use of the information to criminally investigate or prosecute any alcohol or drug abuse patient.[facility] the event this information is protected by the Federal Confidentiality of Alcohol and Drug Abuse Patient Records regulations: The Federal rules restrict any use of the information to criminally investigate or prosecute any alcohol or drug abuse patient.[facility] the event this information is protected by the Federal Confidentiality of Alcohol and Drug Abuse Patient Records regulations: The Federal rules restrict any use of the information to criminally investigate or prosecute any alcohol or drug abuse patient.[facility] the event this information is protected by the Federal Confidentiality of Alcohol and Drug Abuse Patient Records regulations: The Federal rules restrict any use of the information to criminally investigate or prosecute any alcohol or drug abuse patient.[facility] the event this information is protected by the Federal Confidentiality of Alcohol and Drug Abuse Patient Records regulations: The Federal rules restrict any use of the information to criminally investigate or prosecute any alcohol or drug abuse patient.[facility] Reason for Visit (unrecogniz ed section and content) Reason Comments Abdominal Pain Reason Comments Radiology US Specialty Diagnoses / Procedures Referred By Rashawn sales Referred To Contact US IMAGING Diagnoses Pelvic pain in female Procedures US FEMALE PELVIS TRANSVAG US TRANSVAGINAL Gisell Hooper APRN.CORPORATE TAX PREPARER [address] [place] [address] [place] [address] Referral ID Status Reason Start Date Expiration Date V isits Requested Visits Authorized [id number] Closed Auto-Generate d Referral 10/12/2023 11/10/2024 1 1 Reason Comments Results Reason Comments Appointment MIGS vs CPP Care Teams (unrecognized sec tion and content) Log Buncher Relationship Specialty Start Date End Date John Cook [facility] [address] [facility] [address] [place] [address] PCP - General Gerontology 01/19/23 Log Buncher Relationship Specialty Start Date End Date John Cook [facility] [address] [facility] [address] [place] [address] PCP - General Gerontology 01/19/23 Log Buncher Relationship Specialty Start Date End Date John Cook Chi [address] [place], [place] [address] PCP - General Gerontology 01/19/23 Log Buncher Relationship Specialty Start Date End Date John Cook Chi [address] [place], [place] [address] PCP - General Gerontology 01/19/23 Log Buncher Relationship Specialty Start Date End Date John Cook Chi [address] [facility] [address] [place], [place] [id number] PCP - General Gerontology 01/19/23 Log Buncher Relationship Specialty Start Date End Date John Cook Chi [address] [facility] [address] [place], [place] [id number] PCP - General Gerontology 01/19/23 INFORMATION SOURCE (unrecogn ized section and content) FOR RECORDS PERTAINING TO PATIENTS WHO ARE OR HAVE BEEN ENROLLED IN A CHEMICAL DEPENDENCY/SUBSTANCEABUSE PROGRAM, SOME INFORMATION MAY BE OMITTED. This clinical summary was aggregated from multiple sources. Caution should be exercised in using it in the provision of clinical care. This summary normalizes information from multiple sources, and as a consequence, information in this document may materially change the coding, format and clinical context of patient data. In addition, data may be omitted in some cases. CLINICAL DECISIONS SHOULD BE BASED ON THE PRIMARY CLINICAL RECORDS. [facility] [employer] [facility]. provides no warranty or guarantee of the accuracy or completeness of information in this document.
--- NOTE | 2023-12-21 06:30 | EGD_PTH ---
PATHOLOGY RESULTS PATIENT: ABHIJEET COOLEY LOC: EN U#:[id number] AGE/SX: 53/F ROOM: RE12/21/[address]: Dr. Jonas Bennett DO : 1970 BED: DIS: 12/21/2023 SPEC #: [id number] RECD: 12/21/23 11:10 STATUS: GIANNI RELing #: [id number] BALA: 12/21/23 06:[address]: Jonas Bennett DEPT: SURGICAL PATHOLOGY RECD BY: Wen Garcia ENTERED: 12/21/23 11:53 SP TYPE: EGD BIOPSY OTHR DR: Dr. Greg Cook MD Tissues: Gastric mucous membrane Duodenum, NOS Transverse colon Sigmoid colon biopsy Procedures: Special Stain Group II Surgery Specimen Level IV Alcian Blue/PAS (control) HEADER OPERATION: Colonoscopy, EGD, biopsy PRE-OP DIAGNOSIS: GERD, blood in stool, liver tumor TISSUE SUBMITTED: A - Gastric body biopsy, B - Duodenum biopsy, C - Transverse colon polyp biopsy, D - Sigmoid colon polyp biopsy. MICROSCOPIC DIAGNOSIS A. Gastric body, biopsy: Mild gastritis. Focal intestinal metaplasia. See microscopic description and comment. B. Duodenum, biopsy: Fragments of duodenal mucosa with nonspecific chronic inflammation. C. Transverse colon polyp, biopsy: Tubular adenoma. D. Sigmoid colon polyp, biopsy: Hyperplastic polyp. SJ:roverto 12/24/2023 COMMENT A. The results of immunohistochemistry for Helicobacter pylori will be reported separately ([id number]). Alcian blue/PAS stain with matched control is used in the evaluation of the specimen. MICROSCOPIC DESCRIPTION Slides are reviewed. A. The specimen shows fragments of gastric mucosa with chronic inflammatory cell infiltrates in the lamina propria consisting of lymphocytes and plasma cells, consistent with mild chronic gastritis. Focal intestinal metaplasia (goblet cell metaplasia) is also noted. GROSS DESCRIPTION A - Received in fixative is one container labeled with the patient's name and designated gastric body biopsy. The specimen consists of two irregular fragments of light bailey soft tissue that in aggregate measure 0.6 x 0.3 x 0.1 cm. The specimen is totally submitted in one cassette. B - Received in fixative is one container labeled with the patient's name and designated duodenum biopsy. The specimen consists of two irregular fragments of light bailey soft tissue that in aggregate measure 0.5 x 0.3 x 0.1 cm. The specimen is totally submitted in one cassette. C - Received in fixative is one container labeled with the patient's name and designated transverse colon polyp biopsy. The specimen consists of one irregular fragment of light bailey soft tissue that measures 0.4 x 0.4 x 0.1 cm. The specimen is totally submitted in one cassette. D - Received in fixative is one container labeled with the patient's name and designated sigmoid colon polyp biopsy. The specimen consists of one irregular fragment of light bailey soft tissue that measures 0.3 x 0.3 x 0.1 cm. The specimen is totally submitted in one cassette. / SJ:rg 12/21/2023 TC:1 CPT: 32461 x4, 63512
--- NOTE | 2023-12-21 06:30 | IMM_PTH ---
PATHOLOGY RESULTS PATIENT: ABHIJEET COOLEY LOC: EN U#:[id number] AGE/SX: 53/F ROOM: RE12/21/[address]: Dr. Jonas Bennett DO : 1970 BED: DIS: 12/21/2023 SPEC #: [id number] RECD: 12/21/23 12:57 STATUS: GIANNI REQ #: [id number] BALA: 12/21/23 06:[address]: Jonas Bennett DEPT: IMMUNOHISTOCHEMISTRY RECD BY: Madhavi Ruvalcaba ENTERED: 12/21/23 12:58 SP TYPE: IMMUNO OTHR DR: Dr. Greg Cook MD Tissues: Stomach, NOS Procedures: H Pylori (initial) PHYSICIAN & INSTITUTION [place] [address] SPECIMEN INFORMATION: Tissue Source: A - Gastric body Clinical Info: Liver tumor, GERD, blood in stool Specimen Number: [id number] CPT code: 97515 METHODOLOGY: Deparaffinized sections of prefer/formalin-fixed tissue or PAP/DQ stained slides are incubated with monoclonal/polyclonal antibodies/oligonucleotide probes. Localization is made via biotin free immunoperoxidase method. Appropriate controls are performed and reacted as expected. Results on target cell population are indicated in the following table: RESULTS: ANTIBODY / CLONE RESULT Block A H Pylori (polyclonal) negative These tests were developed and their performance characteristics determined by [facility]. They may not have been cleared or approved by the U.S. Food and Drug Administration. The FDA has determined that such clearance or approval is not necessary. The above immunohistochemical/dualISH markers are ordered and reviewed by the Pathologist. INTERPRETATION: A. Gastric body, biopsy: Negative for Helicobacter pylori organisms. CHAVA:roverto 12/24/2023
[2023-12-21] MEDS: Lactated Ringers 1,000 ML 15 ML IV (06:39)
--- NOTE | 2023-12-21 06:52 | PCM.HP.BLA ---
History and Physical Date of Admission: 12/21/23 Chief Complaint: blood in stool Details: KATEY COOLEY, is a 53 F who presents to the office today for follow up. H stroke 2018; carotid artery stenosis; cervical radiculopathy PCP OV 3.12.04 to establish care and reports history of cirrhosis. *BGI established 05.11.23 moved to [place] from [place] which is where she received cirrhosis diagnosis. Biochemical CBC, ESR, Amylase H146, lipase H200 FIB 4 1.53 Contact 05.24.23 with bloodwork results; proceed with US and elastography with further recommendations following this. CT abd/pel 06.22.23 hepatic changes consistent with cirrhosis, 2.3cmx1.9cm nodule of right liver, ?hemangioma. US and elastography 07.13.23 hepatic measurement 13.8cm with fatty infiltration. US evaluation very limited and elastography not completed as Katey refused to allow the transmission gel to be on her skin. MELD Child-Bennett ESR/CRP PLT/INR 05.11.23 6 A 8/<2.9 173/1 FIB4 1.53, amylase H146, lipase H300. haptoglobin, LDH, WAGNER, AFP, ceruloplasmin, ferritin, D1,25, B12, TSH, T3, T4, coag, copper, [place] comp, ANCA, ASM, AMA, GAME, hepatitis, HIV WNL OV 09.11.23: Patient complaining of rectal bleed for 1 to 2 weeks. Usually 4-5 times per day but sometimes 6 times per day. It is black in color mixed with the stool but not separate with the stool. She also complained of abdominal pain more feels like cramping in upper abdomen mainly epigastric region. It is intermittent varies between 7-10/10 intensity lasting for about 5 to 10 minutes. He said that she has chronic right upper quadrant abdominal pain usually with lifting weight during her work. No fever. She also complained of dizziness in the morning when she wakes up and getting up from the bed. No fall. Referred to GI clinic from Dr. Haynes office. 10/22/2023: She was seen in the hospital on September 21, 2023 when she was admitted for diplopia and numbness feeling. MRI was done and acute infarct ruled out therefore was discharged with pantoprazole and instructions EGD and colonoscopy with outpatient triple phase CT abdomen and pelvis, ACC protocol but not done. She complains of mild lower abdominal pain as burning micturition creased frequency urgency and is started on antibiotic by hr operations advisor. She denies any vaginal bleeding she states he had menopause. She denies upper abdominal pain but has burning pain and sometimes dyspeptic symptoms including belching. ROS Const Constitutional: No fever(s), decreased energy, weakness or weight change ENT ENT: No dizziness/vertigo, nosebleed/epistaxis or tongue swelling Resp Respiratory: No shortness of breath or wheezing Cardio Cardiology: No chest pain at rest or dyspnea on exertion Gastro GI: Positive for abdominal pain (Lower abdominal pain. Darker stool.) and heartburn; No coffee ground emesis, Blood in stool or Black,tarry stools Genitourinary-Female: Positive for burning urination, painful urination, urinary frequency and urinary urgency; No difficulty urinating Musc Musculoskeletal: No limited range of motion or muscle weakness Skin Skin: Positive for dry skin; No rash Neuro Neurology: No abnormal movements, behavioral changes, weakness or lack of coordination Psych Psychiatric: No behavioral changes, No hyperactivity and No inattentiveness Endo Endocrine: No increased thirst/drinking, increased hunger or weight change Aller/Imm Allergy/Immunologic: No tongue swelling or wheezing Beck/Lymp Hematologic/Lymphatic: No easy bleeding or easy bruising Exam Const General: cooperative, no acute distress and well developed Nutritional Appearance: average body habitus Orientation: alert, awake and oriented x3 HENMT Head: normocephalic and atraumatic Nose: external nose normal Face and sinus: normal facial exam Mouth: moist mucous membranes Eyes Pupils: PERRL EOM: EOM intact bilaterally Neck Neck: normal visual inspection, no meningeal signs and trachea midline Carotids: no bruits Chest Chest palpation & inspection: normal inspection of the chest Resp Effort & Inspection: normal respiratory effort and symmetric chest movement Auscultation: Bilateral: Clear to Auscultation Cardio Palpation: normal PMI Rate: regular rate Rhythm: regular rhythm Heart Sounds: S1 normal and S2 normal Other: Systolic murmur LSB. GI Auscultation: normal bowel sounds Percussion: normal to percussion Palpation: soft, no hepatosplenomegaly and no guarding Other: Mild hypogastric tenderness/suprapubic tenderness probably due to UTI. No upper abdominal tenderness. No clinically palpable ascites. General: bimanual renal exam normal bilaterally, bladder normal to inspection and bladder normal to palpation Bimanual Exam- Vagina & Uterus: bladder normal to palpation Other: Dysuria, increased frequency or intensity suggestive of UTI. Musc Musculoskeletal: No joint tenderness, joint redness, joint warmth or decreased range of motion Thoracic/Lumbar Spine: thor and lumb spine abnorm to inspection Skin General: rashes and/or lesions noted, turgor normal and no erythema Wounds: wound noted Neuro General: patient alert, patient awake, patient oriented x3 and no focal motor deficits Speech: speech normal Motor: muscle tone normal throughout Extrem General: normal exam except as noted Psych Appearance: grossly normal Mood: congruent mood Affect: normal affect Attitude: cooperative Quality Reporting Tobacco Screening ([facility] 138) Smoking Status: Never smoker Assessment and Plan Assessment and Plan (1) Liver tumor: Status: Chronic Plan: During last medical visit she had CT abdomen triple phase, HCC protocol was ordered which was not done yet. Advised to get it done. AFP is also pending. CT abdomen same as mentioned above shows a 2.3 x 1.9 cm heterogeneously enhancing nodule in posterior medial aspect of right lobe of liver. There is suspicion of hemangioma. To correlate this ultrasound was done but ultrasound reported no demonstrated mass lesion. (2) GERD (gastroesophageal reflux disease): Status: Chronic Plan: She was prescribed pantoprazole during her last hospital admission on number 08/31/2023 when she was admitted for diplopia, paresthesia and dizziness and MRI did not show any acute infarct. She did not fill up the prescription. Prescription for pantoprazole is being again resent to the pharmacy. (3) Blood in stool: Status: Chronic Plan: EGD and colonoscopy is being scheduled. CBC reviewed, last 111 1123 shows H&H normal range. Platelet count in low normal range. Patient is stated she never had GI bleed in the past although she had couple times upper and lower endoscopy/EGD and colonoscopy in [place] last 1 about a year ago. After that she moved here. Previous EGD/colonoscopy report not available and patient does not remember exactly when it was done. I strongly recommended (4) Liver cirrhosis: Status: Chronic Qualifiers: Hepatic cirrhosis type: other cirrhosis Qualified Code(s): K74.69 - Other cirrhosis of liver Plan: Last CT abdomen and pelvis IV contrast from June 22, 2023. It shows diffuse contour abnormality of the liver consistent with cirrhotic changes. Reported normal gallbladder and extrahepatic biliary system. Normal spleen and pancreas. Furthermore ultrasound was done which shows increased echogenicity consistent with fatty infiltration 13.8 cm in size. Since her last seen, she has quit alcohol drinking. Suspected AABD. Last fasting blood profile within normal limit from July 2023. Autoimmune workup negative. Viral hepatitis markers negative. Follow-up in 3 months. I have examined the patient and the H&P has been reviewed. There are no clinical changes since date of exam.
--- NOTE | 2023-12-21 07:25 | OP.EGD_ITS ---
Patient Name: Katey Rebolledo Procedure Date: 12/21/2023 6:06 AM Date of : 1970 Age: 53 Procedure: Upper GI endoscopy Indications: Epigastric abdominal pain, Hepatitis rule out esophageal varices Providers: Jonas Bennett DO Medicines: Monitored Anesthesia Care Patient Profile: This is a 53 year old female. Refer to note in patient chart for documentation of history and physical. Patient has symptoms of chronic epigastric abdominal pain. Complications: No immediate complications. Procedure: Pre-Anesthesia Assessment: - Prior to the procedure, a History and Physical was performed, and patient medications and allergies were reviewed. The risks and benefits of the procedure and the sedation options and risks were discussed with the patient. All questions were answered and informed consent was obtained. Patient identification and proposed procedure were verified by the physician. Mental Status Examination: normal. Prophylactic Antibiotics: The patient does not require prophylactic antibiotics. Prior Anticoagulants: The patient has taken no anticoagulant or antiplatelet agents. ASA Grade Assessment: II - A patient with mild systemic disease. After reviewing the risks and benefits, the patient was deemed in satisfactory condition to undergo the procedure. The anesthesia plan was to use monitored anesthesia care (MAC). Immediately prior to administration of medications, the patient was re-assessed for adequacy to receive sedatives. The heart rate, respiratory rate, oxygen saturations, blood pressure, adequacy of pulmonary ventilation, and response to care were monitored throughout the procedure. The physical status of the patient was re-assessed after the procedure. After obtaining informed consent, the endoscope was passed under direct vision. Throughout the procedure, the patient's blood pressure, pulse, and oxygen saturations were monitored continuously. The Colonoscope was introduced through the mouth, and advanced to the second part of duodenum. The upper GI endoscopy was accomplished without difficulty. The patient tolerated the procedure well. Scope In: 7:01:44 AM Scope Out: 7:05:14 AM Total Procedure Duration Time 0 hours 3 minutes 30 seconds Findings: The examined esophagus was normal. Localized mild inflammation characterized by erosions and erythema was found in the gastric body. Biopsies were taken with a cold forceps for histology. Verification of patient identification for the specimen was done. Biopsies were taken with a cold forceps for Helicobacter pylori testing. Verification of patient identification for the specimen was done. Estimated blood loss was minimal. Patchy mildly erythematous mucosa without active bleeding and with no stigmata of bleeding was found in the duodenal bulb. Biopsies were taken with a cold forceps for histology. Verification of patient identification for the specimen was done. Estimated blood loss was minimal. Impression: - Normal esophagus. - Chronic gastritis. Biopsied. - Erythematous duodenopathy. Biopsied. Recommendation: - Discharge patient to home. - Resume previous diet. - Continue present medications. - Await pathology results. Procedure Code(s): --- Professional --- 31652, Esophagogastroduodenoscopy, flexible, transoral; with biopsy, single or multiple CPT copyright 2021 [employer]. All rights reserved. The codes documented in this report are preliminary and upon turnaround engineer review may be revised to meet current compliance requirements. Jonas Bennett DO 12/21/2023 7:24:13 AM This report has been signed electronically. Number of Addenda: 0 Note Initiated On: 12/21/2023 6:06 AM
--- NOTE | 2023-12-21 07:25 | OP.CCLET_ITS ---
12/21/2023 Greg Cook MD [address] [place] [address] Re : Upper GI endoscopy procedure for Katey Rebolledo Dear Dr. Cook This procedure was performed on Thursday, December 21, 2023. My impressions and recommendations are as follows: Impressions : - Normal esophagus. - Chronic gastritis. Biopsied. - Erythematous duodenopathy. Biopsied. Recommendations : - Discharge patient to home. - Resume previous diet. - Continue present medications. - Await pathology results. My findings are described in the full procedure note, which is enclosed. If I can be of further assistance, please feel free to contact me at . Sincerely, Jonas Bennett DO 12/21/2023 7:24:13 AM This report has been signed electronically.
--- NOTE | 2023-12-21 07:27 | OP.CCLET_ITS ---
12/21/2023 Greg Cook MD [address] [place] [address] Re : Colonoscopy procedure for Katey Rebolledo Dear Dr. Cook This procedure was performed on Thursday, December 21, 2023. My impressions and recommendations are as follows: Impressions : - Non-bleeding internal hemorrhoids. - Two 1 to 2 mm polyps in the sigmoid colon and in the transverse colon, removed with a cold snare. Resected and retrieved. - The examined portion of the ileum was normal. Recommendations : - Discharge patient to home. - Resume previous diet. - Continue present medications. - Await pathology results. - Repeat colonoscopy in 5 years for surveillance. My findings are described in the full procedure note, which is enclosed. If I can be of further assistance, please feel free to contact me at . Sincerely, Jonas Bennett, 12/21/2023 7:27:06 AM This report has been signed electronically.
--- NOTE | 2023-12-21 07:27 | OP.COLON_ITS ---
Patient Name: Katey Rebolledo Procedure Date: 12/21/2023 7:05 AM Date of : 1970 Age: 53 Procedure: Colonoscopy Indications: Screening for colorectal malignant neoplasm Providers: Jonas Bennett DO Medicines: Monitored Anesthesia Care Patient Profile: This is a 53 year old female. Refer to note in patient chart for documentation of history and physical. Patient has symptoms of chronic epigastric abdominal pain. Refer to note in patient chart for documentation of history and physical. Last Colonoscopy: none. The patient's first colonoscopy is today. Complications: No immediate complications. Procedure: Pre-Anesthesia Assessment: - Prior to the procedure, a History and Physical was performed, and patient medications and allergies were reviewed. The risks and benefits of the procedure and the sedation options and risks were discussed with the patient. All questions were answered and informed consent was obtained. Patient identification and proposed procedure were verified by the physician. Mental Status Examination: normal. Prophylactic Antibiotics: The patient does not require prophylactic antibiotics. Prior Anticoagulants: The patient has taken no anticoagulant or antiplatelet agents. ASA Grade Assessment: II - A patient with mild systemic disease. After reviewing the risks and benefits, the patient was deemed in satisfactory condition to undergo the procedure. The anesthesia plan was to use monitored anesthesia care (MAC). Immediately prior to administration of medications, the patient was re-assessed for adequacy to receive sedatives. The heart rate, respiratory rate, oxygen saturations, blood pressure, adequacy of pulmonary ventilation, and response to care were monitored throughout the procedure. The physical status of the patient was re-assessed after the procedure. After I obtained informed consent, the scope was passed under direct vision. Throughout the procedure, the patient's blood pressure, pulse, and oxygen saturations were monitored continuously. The was introduced through the anus and advanced to the terminal ileum. The colonoscopy was performed without difficulty. The patient tolerated the procedure well. The quality of the bowel preparation was adequate. The terminal ileum, ileocecal valve, appendiceal orifice, and rectum were photographed. Scope In: 7:07:21 AM Scope Withdrawal Time 0 hours 7 minutes 10 seconds Scope Out: 7:16:19 AM Total Procedure Duration Time 0 hours 8 minutes 58 seconds Findings: The perianal and digital rectal examinations were normal. Non-bleeding internal hemorrhoids were found during retroflexion. The hemorrhoids were Grade II (internal hemorrhoids that prolapse but reduce spontaneously). Two sessile polyps were found in the sigmoid colon and transverse colon. The polyps were 1 to 2 mm in size. These polyps were removed with a cold snare. Resection and retrieval were complete. Verification of patient identification for the specimen was done. Estimated blood loss was minimal. The terminal ileum appeared normal. Impression: - Non-bleeding internal hemorrhoids. - Two 1 to 2 mm polyps in the sigmoid colon and in the transverse colon, removed with a cold snare. Resected and retrieved. - The examined portion of the ileum was normal. Recommendation: - Discharge patient to home. - Resume previous diet. - Continue present medications. - Await pathology results. - Repeat colonoscopy in 5 years for surveillance. Procedure Code(s): --- Professional --- 39908, Colonoscopy, flexible; with removal of tumor(s), polyp(s), or other lesion(s) by snare technique CPT copyright 2021 [employer]. All rights reserved. The codes documented in this report are preliminary and upon counseling psychologist review may be revised to meet current compliance requirements. Jonas Bennett DO 12/21/2023 7:27:06 AM This report has been signed electronically. Number of Addenda: 0 Note Initiated On: 12/21/2023 7:05 AM
== END 2023-12-21 09:08 | disposition home or self-care (01) ==
LOC: EN 05:35 → AC 05:37
PROVIDERS: PCP Family Medicine Geriatric Medicine; Referring Provider Family Medicine Geriatric Medicine; Visit Provider Internal Medicine Gastroenterology
PROC: 0DJD8ZZ Inspection of Lower Intestinal Tract, Via Natural or Artificial Opening Endoscopic (ICD-10-PCS; CPT 45378; principal; 2023-12-21 06:25)
DX: Z12.11 Encounter for screening for malignant neoplasm of colon (principal); K74.69 Other cirrhosis of liver; D12.3 Benign neoplasm of transverse colon; D12.5 Benign neoplasm of sigmoid colon; K64.1 Second degree hemorrhoids; K29.50 Unspecified chronic gastritis without bleeding; K31.89 Other diseases of stomach and duodenum; K21.9 Gastro-esophageal reflux disease without esophagitis; K76.89 Other specified diseases of liver; G89.29 Other chronic pain; I10 Essential (primary) hypertension; E78.2 Mixed hyperlipidemia; F32.A Depression, unspecified; Z79.82 Long term (current) use of aspirin; Z79.899 Other long term (current) drug therapy; Z86.73 Personal history of transient ischemic attack (TIA), and cerebral infarction without residual deficits
CPT/HCPCS: 45385; 43239; 88305; 88313; 88342; J7120; J2405

== ENCOUNTER → 2023-12-26 | Outpatient (CLI) | payer MEDICARE, MEDICAID, SELFPAY ==
--- NOTE | 2023-12-26 13:58 | CT_ITS ---
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 This CT exam was performed using one or more of the following dose reduction techniques: automated exposure control, adjustment of the mA and/or kV according to patient size, and/or use of iterative reconstruction technique. CONTRAST: IV 100mL Isovue-300 COMPARISON: CT Abdomen Pelvis dated 11/02/2023 FINDINGS: LOWER THORAX: Normal. Lung bases are clear. No cardiomegaly. No pericardial effusion. ABDOMEN: LIVER: Lobulated contour of the liver again noted related to underlying cirrhosis. Liver attenuation is normal. No space-occupying lesion. GALLBLADDER AND BILE DUCTS: Gallbladder is contracted consistent with a nonfasting state. PANCREAS: Normal. No focal cystic or solid mass. SPLEEN: Normal. Normal size without focal cystic or solid mass. ADRENALS: Stable 10 mm left adrenal nodule. KIDNEYS AND URETERS: 4 mm nonobstructive right renal stone. Normal renal size and position. STOMACH AND BOWEL: Cecum again projects into the midline of the lower abdomen related to redundant mesocolon. PELVIS: APPENDIX: No evidence of acute appendicitis. BLADDER: Normal. REPRODUCTIVE: Hysterectomy noted. ABDOMEN and PELVIS: INTRAPERITONEAL SPACE: Normal. No ascites or other fluid collection. No free air. BONES/JOINTS: No suspicious lytic or blastic abnormality. SOFT TISSUES: Normal. No discrete abdominal or pelvic wall hernia. VASCULATURE: Normal. Abdominal aorta is non-dilated. LYMPH NODES: Normal. No enlarged lymph nodes. CT/CT Abd/Pelvis W/WO Contrast IMPRESSION: 1. Liver appearance consistent with underlying cirrhosis. No evidence of a liver mass. 2. Right nephrolithiasis. Electronically Signed: Juan Burciaga MD at 16:59 EST ,
[2023-12-26 14:34] LABS: CREATININE FINGERSTICK < 1.0 mg/dL (0.55-1.02); EGFR FINGERSTICK > 60.0000 mL/min (>60)
--- OUTSIDE RECORDS SUMMARY | 2023-12-26 17:40 | XMS RPT_ITS | CCD ---
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 Thermit Name Role Phone Praveen, John Chi Primary Care Provider [phone] Unavailable Primary Care Provider Unavailabl e Praveen, John Chi Primary Care Provider PRAVEEN, JOHN CHI Primary Care Unavailable GUERINVEE KUO D Referring Unavailable GUERIN, VEE D Attending Unavailable PRAVEEN, JOHN CHI Primary Care Unavailable HAURYGISELL Attending Unavailable PRAVEEN, JOHN CHI Primary Care Unavailable HAURY, GISELL Referring Unavailable PRAVEEN, JOHN CHI Primary Care Unavailable PRAVEEN, JOHN CHI Primary Care Unavailable HAURY, GISELL Referring Unavailable PRAVEEN, JOHN CHI Primary Care Unavailable HADAVID, GISELL Attending Unavailable OZIEL AREVALO Primary Care Unavailable ADE SLADE Attending Unavailable PRAVEEN, JOHN CHI Primary Care Unavailable HAURY, GISELL Referring Unavailable PRAVEEN, JOHN CHI Primary Care Unavailable HAURY, GISELL Attending Unavailable PRAVEEN, JOHN CHI Primary Care Unavailable PRAVEEN, JOHN CHI Primary Care Unavailable GUERIN, VEE D Referring Unavailable PRAVEEN, JOHN CHI Primary Care Unavailable GUERIN, VEE D Referring Unavailable PRAVEEN, JOHN CHI Primary Care Unavailable GUERIN, VEE D Referring Unavailable PRAVEEN, JOHN CHI Primary Care Unavailable GUERIN, VEE D Attending Unavailable OZIEL AREVALO Primary Care Unavailable PRAVEEN, JOHN CHI Primary Care Unavailable ADE SLADE Referring Unavailable PRAVEEN, JOHN CHI Primary Care Unavailable YAQUELIN FALCON Attending Unavailable Allergies Allergy Classification Reported Allergen(s) Allergy Type Date of Onset Reaction(s) Facility (8 sources) Ketorolac; Translations: [KETOROLAC TROMETHAMINE] Drug Allergy 3 Vomiting [facility] Work Phone: (4 sources) Environmental allergies [Other] Propensity to adverse reactions 6 [facility] (1 source) OTHER; Translations: [OTHER] Propensity to adverse reactions (disorder) 6 [facility] Repository Medications Current Medications Medication Drug Class(es) [...] 11:27-0500 Body weight 81.56 kg Gisell Hooper APRN.HAND CULTIVATOR Work Phone: [facility] 10-12-2023 11:27-0500 Diastolic blood pressure 80 mm[Hg] Gisell Hooper APRN.HAND CULTIVATOR Work Phone: [facility] 10-12-2023 11:27-0500 Systolic blood pressure 140 mm[Hg] Gisell Hoopre APRN.HAND CULTIVATOR Work Phone: [facility] 01-19-2023 09:52-0500 Diastolic blood pressure 82 mm[Hg] Ade Slade MD Work Phone: [facility] 01-19-2023 09:52-0500 Systolic blood pressure 118 mm[Hg] Ade Slade MD Work Phone: [facility] Encounters Encounter Date Encounter Type Care Provider Facility Start: 12-20-2023 Telephone encounter Oziel hamilton RN Work Phone: Gynecology Procedures Date Procedure Procedure Detail Performing Clinician Start: 10-12-2023 Urnls dip stick/tabl et rgnt auto w/o microscopy Gisell Hooper APRN.HAND CULTIVATOR Work Phone: Start: 01-19-2023 Follow-up visit FOLLOW UP JOHN Loja Start: 01-19-2023 End: 01-19-2023 Mammography Ade Slade MD Work Phone: Start: 03-10-2016 Mammography Ade grubbs MD Work Phone: Start: 05-20-2014 Lipid 1996 panel - S messi or Plasma Screen Wstr Plan of Treatment Date Care Activity Detail Author Start: 05-02-2033 Urine microalbumin profile DTaP,Tdap,Td Vaccine (2 - Td or Tdap) [facility] Start: 11-14-2024 BP Controlled (<130/80) BP Controlled (<130/80) [facility] in Start: 08-07-2024 BP Controlled (<130/80) BP Controlled (<130/80) [facility] Start: 01-20-2024 Mammography [facility] Start: 01-20-2024 Screening for malignant neoplasm of breast Mammogram Screening [facility] Start: 07-13-2023 Influenza vaccination Influenza Vaccine (#1) [facility] Start: 07-13-2022 Influenza vaccination [facility] Start: 2019 SHINGRIX VACCINE (1 of 2) SHINGRIX VACCINE (1 of 2) [facility] Start: 2019 Zoster Vaccines (1 of 2) Zoster Vaccines (1 of 2) [facility] Start: 05-20-2019 Lipid 1996 panel - Serum or Plasma Lipid Screening [facility] Start: 05-20-2019 Lipid panel Lipid Screening [facility] Start: 05-20-2019 LIPID SCREEN LIPID SCREEN [facility] Start: 02-27-2019 DIABETES SCREEN DIABETES SCREEN [facility] Start: 02-27-2019 Diabetes Screening Diabetes Screening [facility] Start: 03-10-2017 Mammography MAMMOGRAM [facility] Start: 2014 COLOGUARD (FIT-DNA) COLOGUARD (FIT-DNA) [facility] Start: 2014 Colonoscopy COLONOSCOPY [facility] Start: 2014 COLORECTAL CANCER SCREENING COLORECTAL CANCER SCREENING [facility] Start: [address] COLONOGRAPHY [facility] Start: 2014 FECAL OCCULT BLOOD FECAL OCCULT BLOOD [facility] Start: 2014 Screening for malignant neoplasm of colon [facility] Start: 11-21-2014 SIGMOIDOSCOPY SIGMOIDOSCOPY [facility] Start: 12-13-2011 PNEUMOCOCCAL (2 - PCV) PNEUMOCOCCAL (2 - PCV) [facility] Start: 12-13-2011 Pneumococcal vaccination [facility] Start: 2009 Screening for malignant neoplasm of breast Mammogram [facility] Start: 01-19-2007 Urine microalbumin profile [facility] Start: 1999 Screening for malignant neoplasm of cervix [facility] Start: 1990 Screening for malignant neoplasm of cervix Pap Smear [facility] Start: 1988 DTaP/Tdap/Td Vaccines (1 - Tdap) DTaP/Tdap/Td Vaccines (1 - Tdap) [facility] Start: 1987 ANNUAL PCP TEAM CHRONIC DISEASE VISIT ANNUAL PCP TEAM CHRONIC DISEASE VISIT [facility] Start: 1987 BP CONTROLLED (<130/80) BP CONTROLLED (<130/80) [facility] in Start: 1987 Hepatitis C screening Hepatitis C Screening [facility] Start: 1970 MMR Vaccines (1 of 1 - Standard series) MMR Vaccines (1 of 1 - Standard series) [facility] Start: 04-01-1970 COVID-19 VACCINE (#1) COVID-19 VACCINE (#1) [facility] Start: 1969 HEPATITIS B (1 of 3 - 3-dose series) HEPATITIS B (1 of 3 - 3-dose series) [facility] Start: 1969 Hepatitis B Vaccine (1 of 3 - 3-dose series) Hepatitis B Vaccine (1 of 3 - 3-dose series) [facility] Start: 1969 Hepatitis B Vaccines (1 of 3 - 3-dose series) Hepatitis B Vaccines (1 of 3 - 3-dose series) [facility] Start: 1969 HIV screening HIV Screening [facility] Start: 1969 Screening for malignant neoplasm of colon [facility] Bacteria identified in Urine by Culture URINE CULTURE Microbiology Routine Pelvic pain in female 10/12/2023 12:19 PM EST [facility] Work Phone: BACTERIAL VAGINOSIS AMPLIFICATION BACTERIAL VAGINOSIS AMPLIFICATION Lab Routine Vaginal irritation 01/19/2023 10:43 AM EST [facility] Work Phone: BACTERIAL VAGINOSIS NAAT BACTERI AL VAGINOSIS NAAT Lab Routine Pelvic pain in female 10/12/2023 12:19 PM EST [facility] Work Phone: ASHLEY / TRICHOMONA S AMPLIFICATION ASHLEY / TRICHOMONAS AMPLIFICATION Microbiology Routine Encounter for gynecological examination (general) (routine) without abnormal findings Vaginal irritation 01/19/2023 10:43 AM EST [facility] Work Phone: ASHLEY/TRICHOMONAS NAAT ASHLEY /TRICHOMONAS NAAT Lab Routine Pelvic pain in female 10/12/2023 12:19 PM EST [facility] Work Phone: End: 02-18-2024 LISSA SCREENING LISSA SCREENING Radiology Routine Encounter for gynecological examination (general) (routine) without abnormal findings Encounter for screening mammogram for breast cancer 1 Occurrences starting 01/19/2023 until 02/18/2024 [facility] Work Phone: Immunizations Immunization Date Immunization Notes Care Provider Fa [facility] 08-04-2015 influenza, injectabl e, quadrivalent, contains preservative Ade Slade MD Work Phone: [facility] 08-04-2015 influenza virus vacc ine, unspecified formulation Screen Wstr [facility] 11-25-2014 influenza, seasonal, injectable Ade Slade MD Work Phone: [facility] 08-25-2013 influenza virus vacc ine, unspecified formulation Ade Slade MD Work Phone: [facility] 09-23-2012 influenza virus vacc ine, unspecified formulation Ade Slade MD Work Phone: [facility] 12-13-2010 pneumococcal polysaccharide vaccine, 23 valent Ade Slade MD Work Phone: [facility] 09-13-2010 influenza virus vacc ine, unspecified formulation Ade Slade MD Work Phone: [facility] 08-13-2009 influenza virus vacc ine, unspecified formulation Ade Slade MD Work Phone: [facility] 08-18-2008 influenza virus vacc ine, unspecified formulation Ade Slade MD Work Phone: [facility] 10-01-2007 influenza virus vacc ine, unspecified formulation Ade Slade MD Work Phone: [facility] 01-18-2007 tetanus and diphther ia toxoids, not adsorbed, for adult use Ade Slade MD Work Phone: [facility] Payers Date Payer Category Payer Unknown [employer] MEDICARE ADVANTAGE HMO [id number] 2023-Present [phone] [address] [place] [address] HMO [id number] 2022 Medicare UHC AARP MEDICAR E [facility] AARP MEDICARE HMO [id number] 2022-Present [phone] [address] [address] [place] [address] HMO [id number] 2022 Medicare [id number] Social History Date Type Detail Facility Start: 01-30-2013 End: 06-08-2023 Tobacco smoking status NHIS Ex-smoker [facility] End: 12-14-1991 History of tobacco use Current smoker [facility] End: 12-14-1991 History of tobacco use Cigarette Smoker [facility] Start: 01-30-2013 End: 06-08-2023 Cigarettes smoked current (pack per day) - Reported 0.5 [facility] Start: 01-30-2013 End: 06-08-2023 Tobacco use and exposure Former smokeless tobacco user [facility] End: 11-12-2011 History of tobacco use User of smokeless tobacco [facility] Start: 01-19-2023 End: 11-14-2023 Alcohol intake Current drinker of alcohol (finding) [facility] Start: 01-03-2010 Alcohol Comment Occasionally [facility] Start: 1970 Sex Assigned At Not on file C [facility] Tobacco smoking stat [facility] Tobacco smoking consumption unknown [facility] Start: 01-19-2023 End: 06-08-2023 Tobacco use panel [facility] National Score (1-10 0), lower number is lower risk 68 [facility] Medical Equipment Procedure Code Equipment Code Equipment Origin al Text Equipment Identifier Dates Patch Ventralex St Sepra Sorbaflex 2.5in Medium [employer] - [id number] Start: 03-21-2016 Clinical Notes 01-28-2010 to 12-20-2023 Telephone Encounter - Oziel Felipe RN - 12/20/2023 9:39 AM ESTTelephone Encounter - Gisell Hooper APRN.HAND CULTIVATOR - 10/24/2023 2:46 PM ESTTelephone Encounter - [...] no further questions. documented in this encounter [facility] 11-14-2023 Note HNO ID: [id number] Author: Gisell Hooper APRN.BURT Service: ? Author Type: Nurse Practitioner Type: Progress Notes Filed: 11/14/2023 4:02 PM Note Text: Katey Rebolledo is a 53 year old female who presents for a follow up visit for pelvic pain. asl interpreter present. HPI: Patient was seen on 11/02 [...] L4 SAB0 IAB0 Ectopic0 Multiple0 Live Births4 Brusher Machine History LMP: 01/19/2013, Hysterectomy Age at Menarche: Age at First : Age at Menopause: Brusher Machine History Comments: Sexual Activity: Not Currently; Male; [...] Mother Dementia Mother Coronary Artery Disease Father [place] ? age Hypertension Sister Social History Tobacco [...] was not done. Patient agreeable. Gisell Hooper APRN.HAND CULTIVATOR Medical Decision Making: Problems: Moderate: 1+ chronic illnesses with change Data: U (more content not included)... [facility] 11-09-2023 Note HNO ID: [id number] Author: Aline Villaseñor RDMS Service: ? Author Type: Auto Repair Technician Type: Progress Notes Filed: 11/09/2023 8:26 AM Note Text: Radiology Service Progress Note PATIENT NAME: Katey Rebolledo DATE OF SERVICE: November 09, 2023 TIME: [...] Villaseñor RDMS November 09, 2023 8:25 AM [facility] 11-02-2023 Note HNO ID: [id number] Author: Gisell Hooper APRN.HAND CULTIVATOR Service: ? Author Type: Nurse Practitioner Type: Progress Notes Filed: 11/02/2023 11:10 AM Note Text: Katey Rebolledo is a 53 year old female who presents for problem visit of problem visit for continued pelvic pain. [employer] used for visit. HPI: Patient was here [...] L4 SAB0 IAB0 Ectopic0 Multiple0 Live Births4 Brusher Machine History LMP: 01/19/2013, Hysterectomy Age at Menarche: Age at First : Age at Menopause: Brusher Machine History Comments: Sexual Activity: Not Currently; Male; [...] Mother Dementia Mother Coronary Artery Disease Father [place] ? age Hypertension Sister Social History Tobacco [...] on 10/09/2023) No (more content not included)... [facility] 10-24-2023 Miscellaneous Notes Q-Senseihart message sent. Gisell Hooper APRN.BURT Patient notified of results with the assistance of soil expert. Patient states the pain is still present [...] message for patient to call office via soil expert services. SHAUNA CABRAL RN Please notify patient: Ultrasound WNL. Left ovary visualized, right ovary not visualized. Pelvic pain likely related to infection. How is she doing on antibiotic? Gisell Hooper APRN.BURT documented in this encounter [facility] 10-19-2023 Note HNO ID: [id number] Author: Aline Villaseñor RDMS Service: ? Author Type: Auto Repair Technician Type: Progress Notes Filed: 10/19/2023 9:53 AM [...] Villaseñor RDMS October 19, 2023 9:52 AM [facility] 10-19-2023 History of Presen t illness Narrative [...] 2023 9:52 AM documented in this encounter [facility] 10-12-2023 Note HNO ID: [id number] Author: Gisell Hooper APRN.HAND CULTIVATOR Service: ? Author Type: Nurse Practitioner Type: Progress Notes Filed: 10/12/2023 12:22 PM Note Text: Katey Rebolledo is a 53 year old female who presents for problem visit of pelvic pain. asl interpreter used for this visit. HPI: History of [...] L4 SAB0 IAB0 Ectopic0 Multiple0 Live Births4 Brusher Machine History LMP: 01/19/2013, Hysterectomy Age at Menarche: Age at First : Age at Menopause: Brusher Machine History Comments: Sexual Activity: Not Currently; Male; [...] Mother Dementia Mother Coronary Artery Disease Father [place] ? age Hypertension Sister Social History Tobacco [...] ALLERGIES [OTHER] 09/27/2006 (more content not included)... [facility] 10-12-2023 History of Presen t illness Narrative Katey Rebolledo is a 53 year old female who presents for problem visit of pelvic pain. asl interpreter used for this visit. HPI: History of [...] L4 SAB0 IAB0 Ectopic0 Multiple0 Live Births4 Brusher Machine History LMP: 01/19/2013, Hysterectomy Age at Menarche: Age at First : Age at Menopause: Brusher Machine History Comments: Sexual Activity: Not Currently; Male; [...] Mother Dementia Mother Coronary Artery Disease Father [place] ? age Hypertension Sister Social History Tobacco [...] external genitalia normal, normal Bartholin's glands, urethra, [place]'s glands, no vulvar lesions, no cervical lesions, [...] Urine culture sent Stress incontinence - ICD9: [id number], ICD10: N39.3 - Urine culture sent - Consider urology or uro central sterilization technician referral Constipation, unspecified constipation type - ICD9: [...] 4 - Moderate documented in this encounter [facility] 10-09-2023 Note HNO ID: [id number] Author: Vee Guerin, DO Service: ? Author Type: Physician Type: Progress Notes Filed: 10/09/2023 4:03 PM Note Text: [facility] [place] DEPARTMENT OF VASCULAR SURGERY OUTPATIENT VISIT DATE [...] Internal carotid artery: (more content not included)... [facility] 08-07-2023 Note HNO ID: [id number] Author: Vee Guerin, DO Service: ? Author Type: Physician Type: Progress Notes Filed: 08/07/2023 5:09 PM Note Text: [facility] [place] DEPARTMENT OF VASCULAR SURGERY OUTPATIENT VISIT DATE [...] the right side. She recently moved from [place] and is getting her records sent to [place]. She is deaf and history obtained with assistance of soil expert. She is currently working at [employer] and notices that she drops things with [...] Mother Dementia Mother Coronary Artery Disease Father [place] ? age Hypertension Sister MEDICATIONS: vit C/E/Zn/coppr/lutein/zeaxan [...] cause drowsiness. (Patie (more content not included)... [facility] 06-08-2023 Note HNO ID: [id number] Author: Yaquelin Falcon APRN.HAND CULTIVATOR Service: ? Author Type: Nurse Practitioner Type: Progress Notes Filed: 06/08/2023 5:00 PM Note Text: Industrial Relations Worker offered: Patient declines. Accompanied by ui designer. Katey Rebolledo is a 52 year old female who presents for vaginal pruritis, burning, odor and discharge for 4 month(s). Cramping to left side. C glabrata 01/2023 - did not take fluconazole because she did not see it in MyChart. Vaginal discharge: white, thick. Itching: YES Dyspareunia: NA - last SI 2020 Fever/chills: No Abdominal pain: Yes, Bladder: frequency, urgency, dysuria for past year. States has never had urine testing - PCP at [place] Bowel: Constipation - bowel movement every morning [...] external genitalia normal, normal Bartholin's glands, urethra, [place]'s glands, no vulvar lesions, small amount white [...] of results. Follow- up as needed. Yaquelin Falcon APRN.HAND CULTIVATOR Medical Decision Making: Problems: Moderate: 1+ chronic illnesses with change Data: Unique test(s) ordered: 1 Risk: Moderate: Drug management and Moderate risk from testing/treatment Medical Decision Making Level: 4 - Moderate [facility] 01-22-2023 Miscellaneous Notes January 23, 2023 PID: [id number] Katey Rebolledo [address] [place] [address] Dear Ms. Rebolledo, We are pleased to [...] report will be kept on file at [facility] as part of your permanent medical record and are available for your continuing care. Thank you for allowing us to help in meeting your health care needs. Sincerely, Dr. Espinoza Interpreting Radiologist [facility] (Normal over 40) documented in this encounter [facility] 01-19-2023 Note HNO ID: [id number] Author: RT Ruchi(R) Service: Radiology Author Type: Auto Repair Technician Type: Progress Notes Filed: 01/19/2023 10:52 AM [...] RT Ruchi(R) January 19, 2023 10:52 AM [facility] 01-19-2023 Note HNO ID: [id number] Author: Ade Slade MD Service: ? Author [...] L4 SAB0 IAB0 Ectopic0 Multiple0 Live Births4 Brusher Machine History LMP: 01/19/2013, Hysterectomy Age at Menarche: Age at First : Age at Menopause: Brusher Machine History Comments: Sexual Activity: Not Currently; Male [...] Mother Lipids Mother Coronary Artery Disease Father [place] ? age Hypertension Sister SOCIAL HISTORY Social [...] external genitalia normal, normal Bartholin's glands, urethra, [place]'s glands, no vulvar lesions, good vaginal support, [...] due to c/o odor Ade Slade MD [facility] 01-19-2023 History of Presen t illness Narrative [...] 2023 10:52 AM documented in this encounter [facility] 01-19-2023 Miscellaneous Notes Addended by: ADE SLADE on: 01/19/2023 10:39 AM Modules accepted: Orders Addended by: CHERYL FLORENTINO MA on: 01/19/2023 10:31 AM Modules accepted: Orders documented in this encounter [facility] 01-19-2023 Instructions Ade Slade MD - [...] from your environment. documented in this encounter [facility] 01-19-2023 History of Presen t illness Narrative Katey is a 52 year old who presents for an annual gynecologic exam without complaints. Some vaginal odor Postmenopausal: likely, s/p hyst HRT use: No. Last Pap: 03/27/2011 normal HPV: 10/22/2012 positive History of abnormal pap: Yes Last mammogram: 2020 normal OB History T3 L4 SAB0 IAB0 Ectopic0 Multiple0 Live Births4 Brusher Machine History LMP: 01/19/2013, Hysterectomy Age at Menarche: Age at First : Age at Menopause: Brusher Machine History Comments: Sexual Activity: Not Currently; Male [...] Mother Lipids Mother Coronary Artery Disease Father [place] ? age Hypertension Sister SOCIAL HISTORY Social [...] external genitalia normal, normal Bartholin's glands, urethra, [place]'s glands, no vulvar lesions, good vaginal support, [...] Ade Slade MD documented in this encounter [facility] documented as of this encounter (statuses as of 01/19/2023) [facility]03-19-2010 History of Past illness Narrative* Problem Noted Date Resolved Date Hypokalemia 01/28/2010 01/06/2014 Toxic effect of venom(989.5) 09/08/2008 Neoplasm of uncertain behavior of skin 8 10/18/2012 Cough 05/25/2008 10/18/2012 PLANTAR Fasciitis 04/25/2007 10/18/2012 Transient hypertension of , antepartum 01/26/2007 02/06/2007 Supervision of other normal 11/07/2006 02/06/2007 documented as of this encounter (statuses as of 01/24/2023) [facility] History of Past illness Narrative* Problem Noted Date Diagnosed Date Resolved Date Hypokalemia 01/28/2010 01/06/2014 Toxic effect of venom(989.5) 09/08/2008 10/26/2008 Neoplasm of uncertain behavior of skin 08/07/2008 10/18/2012 Cough 05/25/2008 10/18/2012 PLANTAR Fasciitis 04/25/2007 10/18/2012 Transient hypertension of pr egnancy, antepartum 01/26/2007 02/06/2007 Supervision of other normal 11/07/2006 02/06/2007 documented as of this encounter (statuses as of 09/15/2023) [facility] History of Past illness Narrative* Problem Noted Date Diagnosed Date Resolved Date Hypokalemia 01/28/2010 01/06/2014 Toxic effect of venom(989.5) 09/08/2008 10/26/2008 Neoplasm of uncertain behavior of skin 08/07/2008 10/18/2012 Cough 05/25/2008 10/18/2012 PLANTAR Fasciitis 04/25/2007 10/18/2012 Transient hypertension of pr egnancy, antepartum 01/26/2007 02/06/2007 Supervision of other normal 11/07/2006 02/06/2007 documented as of this encounter (statuses as of 10/12/2023) [facility] History of Past illness Narrative* Problem Noted Date Diagnosed Date Resolved Date Hypokalemia 01/28/2010 01/06/2014 Toxic effect of venom(989.5) 09/08/2008 10/26/2008 Neoplasm of uncertain behavior of skin 08/07/2008 10/18/2012 Cough 05/25/2008 10/18/2012 PLANTAR Fasciitis 04/25/2007 10/18/2012 Transient hypertension of pr egnancy, antepartum 01/26/2007 02/06/2007 Supervision of other normal 11/07/2006 02/06/2007 documented as of this encounter (statuses as of 10/20/2023) [facility] History of Past illness Narrative* Problem Noted Date Diagnosed Date Resolved Date Hypokalemia 01/28/2010 01/06/2014 Toxic effect of venom(989.5) 09/08/2008 10/26/2008 Neoplasm of uncertain behavior of skin 08/07/2008 10/18/2012 Cough 05/25/2008 10/18/2012 PLANTAR Fasciitis 04/25/2007 10/18/2012 Transient hypertension of pr egnancy, antepartum 01/26/2007 02/06/2007 Supervision of other normal 11/07/2006 02/06/2007 documented as of this encounter (statuses as of 10/25/2023) [address]19-2010 History of Past illness Narrative* Problem Noted Date Diagnosed Date Resolved Date Hypokalemia 01/28/2010 01/06/2014 Toxic effect of venom(989.5) 09/08/2008 10/26/2008 Neoplasm of uncertain behavior of skin 08/07/2008 10/18/2012 Cough 05/25/2008 10/18/2012 PLANTAR Fasciitis 04/25/2007 10/18/2012 Transient hypertension of pr egnancy, antepartum 01/26/2007 02/06/2007 Supervision of other normal 11/07/2006 02/06/2007 documented as of this encounter (statuses as of 12/20/2023) [facility] Diagnosis Encounter for gynecological examination (general) (routine) without abnormal findings- Primary Encounter for screening mammogram for breast cancer Vaginal irritation Unspecified noninflammatory disorder of vagina documented in this encounter [facility] Diagnosis Encounter for gynecological examination (general) (routine) without abnormal findings Encounter for screening mammogram for breast cancer documented in this encounter [facility] Diagnosis Pelvic pain in female- Primary Unspecified symptom associated with female genital organs Vaginal odor Unspecified symptom associated with female genital organs Urinary frequency Stress incontinence Female stress incontinence Vaginal itching Pruritus of genital organs Constipation, unspecified constipation type Diarrhea, unspecified type documented in this encounter [facility] Diagnosis Pelvic pain in female Unspecified symptom associated with female genital organs documented in this encounter [facility] for referral (narrative)* Diagnostic Procedure Only (Routine) - Closed Specialty Diagnoses / Procedures Referred By Contac t Referred To Contact [facility] Diagnoses Encounter for gynecological examination (general) (routine) without abnormal findings Encounter for screening mammogram for breast cancer Procedures LISSA SCREENING SCREENING MAMMOGRAPHY BI 2-VIEW BREAST INC CAD Ade Slade MD [address] [place] [address] [facility] [address] [place] [address] Referral ID Status Reason Start Date Expiration Date V isits Requested Visits Authorized [id number] Closed Auto-Generate d Referral 01/19/2023 02/18/[address] [facility] for referral (narrative)* Diagnostic Procedure Only (Routine) - Closed Specialty Diagnoses / Procedures Referred By Contac t Referred To Contact [facility] Diagnoses Encounter for gynecological examination (general) (routine) without abnormal findings Encounter for screening mammogram for breast cancer Procedures LISSA SCREENING SCREENING MAMMOGRAPHY BI 2-VIEW BREAST INC CAD Ade Slade MD [address] [place] [address] [facility] [address] [place] [address] Referral ID Status Reason Start Date Expiration Date V isits Requested Visits Authorized [id number] Closed Auto-Generate d Referral 01/19/2023 02/18/[address] [facility] for referral (narrative)* Diagnostic Procedure Only (Routine) - Authorized Specialty Diagnoses / Procedures Referred By Contac t Referred To Contact [facility] Diagnoses Pelvic pain in female Procedures US FEMALE PELVIS TRANSVAG US TRANSVAGINAL Gisell Hooper APRN.HAND CULTIVATOR [address] [place] [address] [place] [address] Referral ID Status Reason Start Date Expiration Date Visits Requested Visits Authorized [id number] Authorized Auto-Generat ed Referral 10/12/2023 11/10/2024 1 1 [facility] Diagnostic Procedure Only (Routine) - Closed Specialty Diagnoses / Procedures Referred By Rashawn t Referred To Contact [facility] Diagnoses Encounter for gynecological examination (general) (routine) without abnormal findings Encounter for screening mammogram for breast cancer Procedures LISSA SCREENING SCREENING MAMMOGRAPHY BI 2-VIEW BREAST INC Ade Garcia MD [address] [place] [address] [facility] [address] [place] [address] Referral ID Status Reason Start Date Expiration Date V isits Requested Visits Authorized [id number] Closed Auto-Generate d Referral 01/19/2023 02/18/2024 1 1 [facility] Summary Purpose Family History No Family [...] or prosecute any alcohol or drug abuse patient.[facility] the event this information is protected by the Federal Confidentiality of Alcohol and Drug Abuse Patient Records regulations: The Federal rules restrict any use of the information to criminally investigate or prosecute any alcohol or drug abuse patient.[facility] the event this information is protected by the Federal Confidentiality of Alcohol and Drug Abuse Patient Records regulations: The Federal rules restrict any use of the information to criminally investigate or prosecute any alcohol or drug abuse patient.[facility] the event this information is protected by the Federal Confidentiality of Alcohol and Drug Abuse Patient Records regulations: The Federal rules restrict any use of the information to criminally investigate or prosecute any alcohol or drug abuse patient.[facility] the event this information is protected by the Federal Confidentiality of Alcohol and Drug Abuse Patient Records regulations: The Federal rules restrict any use of the information to criminally investigate or prosecute any alcohol or drug abuse patient.[facility] the event this information is protected by the Federal Confidentiality of Alcohol and Drug Abuse Patient Records regulations: The Federal rules restrict any use of the information to criminally investigate or prosecute any alcohol or drug abuse patient.[facility] the event this information is protected by the Federal Confidentiality of Alcohol and Drug Abuse Patient Records regulations: The Federal rules restrict any use of the information to criminally investigate or prosecute any alcohol or drug abuse patient.[facility] Reason for Visit (unrecogniz ed section and content) Reason Comments Abdominal Pain Reason Comments Radiology US Specialty Diagnoses / Procedures Referred By Rashawn sales Referred To Contact [facility] Diagnoses Pelvic pain in female Procedures US FEMALE PELVIS TRANSVAG US TRANSVAGINAL Gisell Hooper APRN.HAND CULTIVATOR [address] 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 Start Date End Date John Cook Chi [address] [facility] [address] [place] [address] PCP - General Gerontology 01/19/23 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 Specialty Start Date End Date John Cook Chi [address] [place], [place] [address] PCP - General Gerontology 01/19/23 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 [facility] [employer] [facility]. provides no warranty or guarantee of the accuracy or completeness of information in this document.
== END | disposition home or self-care (01) ==
LOC: CT 13:54
PROVIDERS: PCP Family Medicine Geriatric Medicine; Referring Provider Internal Medicine; Visit Provider Internal Medicine
DX: R16.0 Hepatomegaly, not elsewhere classified (principal)
CPT/HCPCS: 74178; Q9967; A4216

== ENCOUNTER 2024-02-19 10:00 | Outpatient (RCR) | payer MEDICARE, MEDICAID, SELFPAY ==
--- NOTE | 2024-01-29 08:15 | HP.PTEVAL ---
Patient's Visit Information Visit Information Visit Information: ABHIJEET COOLEY is a 53 year old F referred to Physical Therapy by Dr. Campbell Aldridge DPM with a diagnosis of Plantar fasciitis (here for L, R is worse). Date of Evaluation: 01/23/24 Physical Therapist: Ronak Tucker DPT Visit Plan Frequency: 2x /Week Duration: 4 Weeks Plan: *Pt is deaf, should have an nursery supervisor present with her -STM to mendy plantar fascia (can use instruments/tools to assist with STM) -foot intrinsic strengthening (marble pick ups, toe crunches) -ankle strengthening (banded) -calf stretching -hip strengthening (hip ABD, flex, glutes.....do in WB in possible) -SL stability Pt is improving with EPAT and rest, but would benefit from overall strenghtening to hips/ankle/foot along with some STM to help reduce tightness/pain. R foot seems to be giving her more issues Subjective Subjective: Pt presents to PT with mendy heel pain that began last year, she has been undergoing EPAT treatments on both feet and felt that has helped. R foot/heel pain is currently worse than L. Pt is not currently working, but when she was, going up and down stairs and standing for prolonged periods increased pain to a 9/10. Pt is feeling better now that she is not on her feet all day. Pt has 1 or 2 steps to enter house, which are not a problem. Doing laundry and carrying it up stairs makes the pain worse, 6/10. Pain is a 2 or 3/10 at best when resting. Does not note any pattern in pain, no better or worse during the day/night. Ice helps with pain greatly. Denies any numbness or tingling. No bruising or swelling. GOALS: be able to walk with less pain and be able to carry heavy loads of laundry with less pain. Salesperson Sheet Music present for entire session. Pain Right Foot: Pain Intensity (Out of 10): 2 Pain Intensity Range: 1 and 6 Objective Objective: ROM: L ankle - WNL INV and EV, DF reaches 0 with tightness in gastroc leading to early end feel R ankle - WNL INV and EV (some pain with OP into INV, hx of previous ankle sx), DF reaches 0 with tightness/stretch in gastroc MMT: LLE - knee ext 3+/5 with pain, knee flex 4+/5, PF 4/5, DF 4/5, hip flex 3+/5 pain in knee, hip ABD 4-/5, hip ext 3-/5 RLE - knee ext 4/5, knee flex 4+/5, PF 4/5, DF 4/5, hip flex 4-/5, hip ABD 3+/5 pain in low back, hip ext 3-/5 HEEL RAISE: minor use of UE for DL, able to complete eccentric but had difficulty with control PALPATION: tenderness in R sacral region/low back, tightness in R plantar fascia GAIT: narrow YANNICK with very mild evidence of scissor gait d/t weak abductors, poor foot clearance OBSERVATION: barefoot, pt has mild calcaneal eversion on R foot TOO MANY TOES SIGN: (-) Balance/Special Test Scores Lower Extremity Functional Score: 57 Goals Goal 1:: Pt will achieve 10 deg. of mendy DF Goal Time Frame: 4-6 Weeks Goal 2:: Pt will achieve 4+/5 mendy hip strength with <2/10 pain Goal Time Frame: 4-6 Weeks Goal 3:: Pt will amb. with normalized gait pattern Goal Time Frame: 4-6 Weeks Goal 4:: Pt will be able to navigate steps with <2/10 pain Goal Time Frame: 4-6 Weeks Goal 5:: Pt will be able to squat down and carry 10+ lbs with <2/10 pain Goal Time Frame: 6-8 Weeks Rehabilitation Potential Physical Therapy Diagnosis: Pt presents to PT with mendy foot pain, calf tightness, and difficulty with walking, the R foot worse than the L but has had issues with both. Pt would benefit from quality control technician PT services to address decreased tissue extensibility, hip/ankle/foot intrinsic strength, and gait mechanics. Rehabilitation Potential: Good Anticipated Interventions Patient/Client Instruction: Educate patient on: Plan of Care For the Purpose of:: To decrease pain, To increase ROM, To improve ability to perform ADL's, To increase tolerance to activity/condition/position, To improve performance and independence with ADL's, To improve ability of physical actions for home/community/work/leisure, To improve gait and locomotor functions, To improve balance, To improve health and function, To facilitate caregiver knowledge, To improve self management, To prevent re-injury, To improve ability to perform tasks related to life management and To improve tolerance to ADL's Therapeutic Exercise to Include: Strength training, Balance training, Flexibilty training, Neuromotor development, Passive ROM and Active ROM For the Purpose of:: To decrease pain, To increase ROM, To improve muscle performance and motor function, To improve ability to perform ADL's, To increase tolerance to activity/condition/position, To improve performance and independence with ADL's, To improve ability of physical actions for home/community/work/leisure, To improve gait and locomotor functions, To improve health of tissue, To decrease soft tissue restriction, To increase flexibility/ROM, To improve balance, To assume or resume ADL's, To improve health and function, To foster healthy habits, To improve decision making, To facilitate caregiver knowledge, To improve self management, To prevent re-injury, To improve ability to perform tasks related to life management and To improve tolerance to ADL's Manual Therapy Techniques to Include: Mobilization, Passive ROM and Soft tissue mobilization For the Purpose of:: To decrease pain, To increase ROM, To improve nutrient delivery to tissue, To improve muscle performance and motor function, To improve ability to perform ADL's, To increase tolerance to activity/condition/position, To improve performance and independence with ADL's, To improve ability of physical actions for home/community/work/leisure, To improve health of tissue, To decrease soft tissue restriction, To increase flexibility/ROM, To improve endurance, To reduce risk of recurrence, To improve self management, To prevent re-injury, To improve ability to perform tasks related to life management and To improve tolerance to ADL's Iontophoresis (with Dexamethozone, with Acetic acid): Yes Cryotherapy (ice pack, ice massage): Yes For the Purpose of:: To decrease pain, To increase ROM and To improve ability of physical actions for home/community/work/leisure Text: Thank you for the opportunity to evaluate your patient. For Medicare and Medicare HMO plans, please review the plan of care and approve it. It will need to be FAXED BACK to us at [phone] for Medicare purposes. For Medicare only, by signing this I certify the plan of care. Please let me know if there are questions or concerns regarding this plan of care. Physician Signature: Date:
== END 2024-02-19 19:00 | disposition home or self-care (01) ==
LOC: PT 10:00
PROVIDERS: PCP Family Medicine Geriatric Medicine; Referring Provider Podiatrist; Visit Provider Podiatrist
DX: M72.2 Plantar fascial fibromatosis (principal)
CPT/HCPCS: 97110; 97140; 97161; 97530

== ENCOUNTER → 2024-05-26 | Outpatient (CLI) | payer MEDICARE, MEDICAID, SELFPAY ==
[2024-05-26 12:47] LABS: Absolute Lymphocyte Count 1.56 X10^3/uL (0.83-4.51); Basophil# 0.03 X10^3/uL; Basophil% 0.6 % (0-1); Eosinophil# 0.06 X10^3/uL; Eosinophils% 1.2 % (0-5); Hematocrit 42.8 % (37-47); Lymphocyte # 1.56 X10^3/ul (0.83-4.51); Lymphocyte % 31.3 % (19-41); Mean Corp Hgb Conc 32.7 g/dL (32-36); Mean Corpuscular Hgb 28.1 pg (27.0-32.0); Mean Corpuscular Volume 85.8 fL (81-99); Monocyte# 0.34 X10^3/uL; Monocyte% 6.8 % (0-10); NRBC Flagged by Analyzer 0 % (0-5); Neutrophil # 2.97 X10^3/uL (2.7-7.7); Neutrophil % 59.7 % (47-70); Platelet Count 178 K/mm3 (150-450); RBC Distribution Width CV 12.9 % (11.6-14.6); RBC Distribution Width SD 39.8 fl (35.1-43.9); Red Blood Count 4.99 M/mm3 (4.2-5.4)
[2024-05-26 12:53] LABS: International Normalized Ratio 1.1; Prothrombin Time (Protime)PT. 13.9 SECONDS (11.7-14.9)
[2024-05-26 13:27] LABS: Vitamin D,25 Hydroxy 34.9 ng/mL
[2024-05-26 13:52] LABS: ALB/GLOB Ratio 0.8 RATIO (0.9-2.4); AST(SGOT) 36 U/L (15-37); Alanine Aminotransfer ALT/SGPT 61 U/L (13-56); Albumin, Serum 3.4 g/dL (3.2-5.0); Alkaline Phosphatase 160 U/L (45-117); Anion Gap 7 (5-15); BUN 14 mg/dL (7-18); BUN/Creat Ratio 17.2 RATIO (10-20); CRP < 2.90 mg/L (0.0-3.0); Calcium,Total 9.1 mg/dL (8.5-10.1); Chloride 106 mmol/L (98-107); Cholesterol 132 mg/dL (200); Creatinine, Serum 0.81 mg/dL (0.55-1.02); EST Glomerular Filtration Rate 78 mL/min (>60); Est Glom Filt Rate - Afr Amer 94 mL/min (>60); Globulin 4.3 g/dL (2.2-4.2); Glucose 94 mg/dL (74-106); High Density Lipoprotein 50 mg/dL; Potassium 3.3 mmol/L (3.5-5.1); Protein, Total 7.7 g/dL (6.4-8.2); Sodium Level 140 mmol/L (136-145); Thyroid Stim Hormone (TSH) 3.91 uIU/mL (0.358-3.74); Triglycerides 112 mg/dL; Very Low Density Lipoprotein 22 mg/dL (5-40)
[2024-05-26 18:53] LABS: Hemoglobin A1c 5.5 % (3.8-5.6)
[2024-05-29 16:10] LABS: AFP, Tumor Marker 2.4 ng/mL (0.0-9.2); Ceruloplasmin 28.4 mg/dL (19.0-39.0); Copper, Serum or Plasma 102 ug/dL (80-158)
== END | disposition home or self-care (01) ==
PROVIDERS: PCP Nurse Practitioner Family; Referring Provider Internal Medicine; Visit Provider Internal Medicine
DX: K74.69 Other cirrhosis of liver (principal); K21.9 Gastro-esophageal reflux disease without esophagitis; R73.9 Hyperglycemia, unspecified; E78.2 Mixed hyperlipidemia
CPT/HCPCS: 36415; 80053; 80061; 82105; 82306; 82390; 82525; 83036; 84443; 85025; 85610; 86140

== ENCOUNTER 2024-07-29 04:25 | Emergency (ER) | payer MEDICARE, MEDICAID, SELFPAY ==
[2024-07-29 04:44] VITALS: PULSE 76; RESP 16; TEMP 36.6; O2SAT 99; BMI 33.0
[2024-07-29 05:18] LABS: Absolute Lymphocyte Count 1.31 X10^3/uL (0.83-4.51); Absolute Neutrophil Count 2.8 X10^3/uL (2.0-7.7); Basophil# 0.01 X10^3/uL; Basophil% 0.2 % (0-1); Eosinophil# 0.05 X10^3/uL; Eosinophils% 1.1 % (0-5); Hematocrit 42.2 % (37-47); Hemoglobin 13.9 g/dL (12.0-15.0); Lymphocyte # 1.31 X10^3/ul (0.83-4.51); Lymphocyte % 28.4 % (19-41); Mean Corp Hgb Conc 32.9 g/dL (32-36); Mean Corpuscular Hgb 28.8 pg (27.0-32.0); Mean Corpuscular Volume 87.4 fL (81-99); Mean Platelet Vol. 9.7 fl (6.2-12.0); Monocyte# 0.41 X10^3/uL; Monocyte% 8.9 % (0-10); NRBC Flagged by Analyzer 0 % (0-5); Neutrophil # 2.83 X10^3/uL (2.7-7.7); Neutrophil % 61.2 % (47-70); Platelet Count 162 K/mm3 (150-450); RBC Distribution Width CV 12.8 % (11.6-14.6); RBC Distribution Width SD 40.9 fl (35.1-43.9); Red Blood Count 4.83 M/mm3 (4.2-5.4); White Blood Count 4.6 K/mm3 (4.4-11.0)
[2024-07-29] MEDS: Mag /Aluminum/Simeth WCH UDC 30 ML ORAL.SUSP PO (05:18)
[2024-07-29] MEDS: Famotidine 200 MG/20 ML MDV 20 MG in 0.9% Normal Saline (Pres. free 8 ML 300 MG IV (05:18)
[2024-07-29] MEDS: Lidocaine 2% Viscous15 ML UDC 15 ML PO (05:18)
[2024-07-29] MEDS: 0.9% Normal Saline (1000mL) 1,000 ML 999 ML IV (05:19)
[2024-07-29] MEDS: diazePAM 5 MG Tablet PO (05:19)
--- NOTE | 2024-07-29 05:32 | EDS_ITS ---
HPI History of Present Illness Chief Complaint: Abd Pain Informant: patient and spouse/S.O. Narrative Narrative: Patient is a 53-year-old female with past medical history of hypertension hyperlipidemia and GERD. She states she has been out of her acid reflux medi cation for multiple weeks. She states that she has noticed over the last few days she has been having increasing generalized upper abdominal pain that she describes more as a burning sensation. She states that is occasionally making her nauseous as well. She denies any known sick contacts and she denies any loose stool or diarrhea. She also reports that she has been having bouts of dizziness that occur when she goes to lie down and she describes this as more of a sense of motion. 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 Deaf Wears glasses Anxiety Alcohol use Depression Arthritis Easy bruising Back pain TIA (transient ischemic attack) Vertigo Gastric reflux Non-smoker Shortness of breath on exertion Leg cramps Hypertension Right cervical radiculopathy Carotid artery stenosis Liver cirrhosis Migraine Asthma Seasonal allergies Home Medications ?Medication ?Instructions ?Recorded ?Last Taken ?Type albuterol sulfate 90 mcg/actuation 2 puff inhalation Q6H PRN 10/02/22 Unknown History aerosol inhaler shortness of breath or wheezing aspirin 81 mg chewable tablet 81 mg PO DAILY 10/02/22 Unknown History atorvastatin 40 mg tablet 40 mg PO QHS 10/02/22 Unknown History desloratadine 5 mg tablet 5 mg PO DAILY 10/02/22 Unknown History escitalopram oxalate 10 mg tablet 10 mg PO DAILY #30 tabs 10/02/22 Unknown Rx lisinopril 5 mg tablet 5 mg PO DAILY 10/02/22 Unknown History vitamin E (dl, acetate) 45 mg (100 45 mg PO DAILY 10/02/22 Unknown History unit) capsule vitamins A,C,[id number] 4,296 1 cap PO BID 10/02/22 Unknown History mcg-226 mg-90 mg capsule (ICaps AREDS) rizatriptan 10 mg tablet 10 mg PO ONCE #10 tabs 11/27/22 Unknown Rx pantoprazole 40 mg tablet,delayed 40 mg PO DAILY #30 tabs 10/22/23 Unknown Rx release spironolactone 25 mg tablet 25 mg PO DAILY #30 tabs 05/26/24 Unknown Rx hydrocortisone 2.5 % topical cream 1 applic WA QD-BID PRN hemorrhoids 07/07/24 Unknown Rx with perineal applicator #30 grams hydrocortisone acetate 25 mg 25 mg WA QHS #24 ea 07/07/24 Unknown Rx rectal suppository dicyclomine 20 mg tablet 20 mg PO TID #90 tabs 07/24/24 Unknown Rx diazepam 5 mg tablet (Valium) 5 mg PO TID PRN vertigo 5 days #15 07/29/24 Unknown Rx tabs pantoprazole 40 mg tablet,delayed 40 mg PO DAILY 30 days #30 tabs 07/29/24 Unknown Rx release Allergy/AdvReac Type Severity Reaction Status Date / Time No Known Allergies Allergy Verified 12/21/23 06:27 Family History Mother Dementia Father Heart disease Hypertension Other Asthma Depression Surgical History History of ankle surgery H/O hernia repair Social History household members: other details: assisted current occupational status: unemployed Smoking Status: Never smoker Electronic Cigarette Use: not used alcohol intake: current alcohol intake frequency: holidays/special occasions only Alcohol type: wine substance use type: does not use and marijuana what type of physical activity do you participate in: none do you feel safe at home: Yes ROS ROS ED Constitutional Constitutional ED: Denies chills or fever(s) Eyes Eyes: Denies change in vision ENT ENT ED: Denies rhinorrhea or sore throat Cardiovascular Cardiovascular: Denies chest pain, palpitations or racing heartbeat Respiratory/Chest Respiratory/Chest: Denies cough or dyspnea Gastrointestinal Gastrointestinal: Reports abdominal pain and nausea; Denies constipation, diarrhea, melena or vomiting Genitourinary Genitourinary ED: Denies dysuria or hematuria Musculoskeletal Musculoskeletal: Denies myalgias or neck pain Integumentary Denies rash Neurologic Neurologic: Denies headache(s) Psychiatric Psychiatric: Reports anxiety and depression Hematologic/Lymphatic Hematologic/Lymphatic: Denies easy bleeding or easy bruising Allergic/Immunologic Allergic/Immunologic ED: Denies mouth swelling or tongue swelling EXAM Physical Exam Const Vital Signs: 07/29/24 04:44 07/29/24 06:03 Temperature 97.8 F Temperature Source Oral Pulse Rate 76 74 Respiratory Rate 16 18 Blood Pressure 160/75 H Blood Pressure Mean 103 Pulse Ox 99 97 Oxygen Delivery Method Room Air Room Air Positive well nourished and well developed General Appearance ED: well developed; Negative for pallor HEENT Reports moist mucous membranes HEENT Narrative: No tongue or lip swelling no oral lesions no airway edema or compromise No secondary findings in the posterior pharynx to suggest infection Eyes PERRL and EOMs intact bilaterally General Eye ED: Negative for scleral icterus Neck supple Neck Narrative: No nuchal rigidity or meningeal signs Resp normal respiratory effort and clear to auscultation bilaterally Cardio regular rate and regular rhythm GI non-distended and no masses GI Narrative: Abdomen is soft and nondistended with normal active bowel sounds. There is pain on palpation in the midepigastric and right upper quadrant but greatest in the midepigastric region. Negative Small sign. No pulsatile mass or fluid wave. No pain over McBurney's point. Auscultation: normoactive bowel sounds Palpation: soft Back/Spine no CVA tenderness Extremity normal to inspection Extremity Narrative: Negative Homans' sign bilaterally Neuro oriented x3, CN's II-XII intact bilaterally and no sensory deficits noted Neuro Narrative: Cranial nerves II through XII are grossly intact there are no focal neurologic deficits No pronator drift no dysmetria no truncal ataxia Mild horizontal nystagmus is noted. Positive Hallpike [place] exam GCS of 15 NIH stroke scale score of 0 Sensorium / Orientation: alert Motor Exam: strength 5/5 throughout Psych Mood & Affect: anxious Skin no rashes or lesions noted General Skin Exam: Negative for jaundice or pallor MDM MDM MDM Narrative Medical decision making narrative: Patient arrived to the ER hypertensive but has a past medical history of this. She reported pain in her upper abdomen that was more of a burning sensation and stated she been out of her acid reflux medication for quite some time. Differential diagnosis is for gastritis versus pancreatitis versus biliary colic versus acute cholecystitis versus colitis. As she also reported dizziness there is concern for peripheral versus central vertigo. However as she has mild horizontal nystagmus and positive Hallpike [place] exam and her symptoms worsen with motion and resolve at rest this is most likely peripheral vertigo. As neurologic exam is normal I felt no need for a CT of the head but elected to simply treat her vertigo with Valium which did help resolve symptoms. Basic blood work was obtained and shows an elevated lipase and therefore with concern for pancreatitis a CT of the abdomen with IV contrast was ordered. This revealed chronic findings such as cirrhosis and a pancreatic pseudocyst without findings of acute pancreatitis. On reevaluation she states that after a GI cocktail and IV Pepcid and Valium their symptoms have completely resolved. Her abdomen remains soft and nonsurgical and her neurologic exam normal. Therefore with resolution of symptoms and overall negative workup I do not feel there is need for further testing or admission and she is otherwise safe for discharge with symptomatic care History & Record Review Discussion w/independent historian: Patient and Significant other Lab Data Attestation: I reviewed the patient's lab results. Labs: Laboratory Results - last 24 hr 07/29/24 05:11 WBC 4.6 RBC 4.83 Hgb 13.9 Hct 42.2 MCV 87.4 MCH 28.8 MCHC 32.9 RDW Std Deviation 40.9 RDW Coeff of Malathi 12.8 Plt Count 162 MPV 9.7 Immature Gran % (Auto) 0.200 Neut % (Auto) 61.2 Lymph % (Auto) 28.4 Worth % (Auto) 8.9 Eos % (Auto) 1.1 Baso % (Auto) 0.2 Absolute Neuts (auto) 2.8 Absolute Lymphs (auto) 1.31 Nucleated RBC % 0 Sodium 138 Potassium 3.8 Chloride 105 Carbon Dioxide 28.0 Anion Gap 5 BUN 15 Creatinine 0.77 Estim Creat Clear Calc 86.13 Est GFR (MDRD) Af Amer 100 Est GFR (MDRD) Non-Af 83 BUN/Creatinine Ratio 19.4 Glucose 112 H Calcium 9.8 Total Bilirubin 0.80 Direct Bilirubin 0.26 AST 28 ALT 39 Alkaline Phosphatase 143 H Total Protein 7.6 Albumin 3.6 Globulin 4.0 Lipase 199 H Radiography Diagnostic Testing: Clinical Impression(s) from Imaging Studies Abdomen/Pelvis CT 07/29/24 05:39 IMPRESSION: No acute abnormality. Electronically Signed: Campbell Coulter DO at 6:20 EDT , Discharge Plan Triage Chief Complaint: Abd Pain ED Provider: John Pang Dx/Rx/DC Orders Clinical Impression: Gastritis, Peripheral vertigo, Essential hypertension, Liver cirrhosis Instructions: Vestibular Rehab Therapy, ED Gastritis (Adult), ED Vertigo, Unspecified Prescriptions: New pantoprazole 40 mg tablet,delayed release (DR/EC) 40 mg PO DAILY 30 Days Qty: 30 2RF diazepam [Valium] 5 mg tablet 5 mg PO TID PRN (Reason: vertigo) 5 Days Qty: 15 0RF No Action aspirin 81 mg tablet,chewable 81 mg PO DAILY lisinopril 5 mg tablet 5 mg PO DAILY atorvastatin 40 mg tablet 40 mg PO QHS vitamin E (dl, acetate) 45 mg (100 unit) capsule 45 mg PO DAILY desloratadine 5 mg tablet 5 mg PO DAILY ICaps AREDS [id number] capsule 1 cap PO BID albuterol sulfate 90 mcg/actuation HFA aerosol inhaler 2 puff inhalation Q6H PRN (Reason: shortness of breath or wheezing) escitalopram oxalate 10 mg tablet 10 mg PO DAILY Qty: 30 5RF rizatriptan 10 mg tablet 10 mg PO ONCE Qty: 10 0RF Rx Instructions: as a single dose pantoprazole 40 mg tablet,delayed release (DR/EC) 40 mg PO DAILY Qty: 30 2RF Rx Instructions: Take 1 tablet before breakfast. hydrocortisone acetate 25 mg suppository 25 mg WA QHS Qty: 24 0RF hydrocortisone 2.5 % cream with perineal applicator 1 applic WA QD-BID PRN (Reason: hemorrhoids) Qty: 30 1RF spironolactone 25 mg tablet 25 mg PO DAILY Qty: 30 2RF Rx Instructions: Start from 11/04/2023. Hold if serum potassium is more than 5.0. dicyclomine 20 mg tablet 20 mg PO TID Qty: 90 0RF Rx Instructions: take 30 min before meals Primary Care Provider: Jeanna Clark Referrals: Jeanna Clark, RACHEL-C [Primary Care Provider] - Activity Restrictions/Additional Instructions: Please take the prescribed medication as directed to help control your symptoms and return to the ER should you have any further concerns or worsening of symptoms Print Language: Maori Disposition Disposition: Home, Self Care Discharge Date/Time: 07/29/24 07:40
[2024-07-29 05:38] LABS: AST(SGOT) 28 U/L (15-37); Alanine Aminotransfer ALT/SGPT 39 U/L (13-56); Albumin, Serum 3.6 g/dL (3.2-5.0); Alkaline Phosphatase 143 U/L (45-117); Anion Gap 5 (5-15); BUN 15 mg/dL (7-18); BUN/Creat Ratio 19.4 RATIO (10-20); Bilirubin, Direct 0.26 mg/dL (0.00-0.30); Calcium,Total 9.8 mg/dL (8.5-10.1); Chloride 105 mmol/L (98-107); Creatinine, Serum 0.77 mg/dL (0.55-1.02); EST Glomerular Filtration Rate 83 mL/min (>60); Est Glom Filt Rate - Afr Amer 100 mL/min (>60); Estimated Creatinine Clearance 86.13 ml/min; Glucose 112 mg/dL (74-106); Lipase 199 U/L (13-75); Potassium 3.8 mmol/L (3.5-5.1); Protein, Total 7.6 g/dL (6.4-8.2); Sodium Level 138 mmol/L (136-145)
--- NOTE | 2024-07-29 05:39 | CT_ITS ---
INDICATION: PAIN EXAMINATION: CT Abdomen And Pelvis W/ Contrast Injection TECHNIQUE: Helically acquired images were obtained of the abdomen and pelvis with sagittal and coronal reconstructed images. Individualized dose optimization techniques were used for this CT. IV contrast dosage and agent: 100 mL of Isovue-370. Oral contrast: None. COMPARISON: 12/26/2023 CT. FINDINGS: VESSELS: No abdominal aortic aneurysm or dissection. LIVER: No evidence of a mass. No intrahepatic or extrahepatic biliary duct dilation. Lobulated contour of the liver consistent with hepatic cirrhosis. GALLBLADDER: No calcified stones. No evidence of cholecystitis. PANCREAS: Dilated duct versus cyst in the pancreatic head, unchanged as compared through 06/22/2023. No evidence of pancreatitis. SPLEEN: Normal. ADRENAL GLANDS: Stable subcentimeter left adrenal gland nodule with no follow-up recommended. KIDNEYS AND URETERS: Simple left renal cyst with no follow-up recommended. Right renal stone. No hydronephrosis or hydroureter. No significant asymmetric perinephric stranding. URINARY BLADDER: Unremarkable. BOWEL: No evidence of diverticulosis or diverticulitis. Appendix appears normal. No evidence of bowel obstruction. REPRODUCTIVE ORGANS: No evidence of a pelvic mass. PERITONEUM: No intraabdominal free fluid or free air. LYMPH NODES: No pathologically enlarged mesenteric or retroperitoneal lymph nodes. ABDOMINAL WALL: No abdominal or pelvic wall hernia. BONES: No acute abnormality. LOWER CHEST: Visualized lung bases are unremarkable. CT/Abdomen/Pelvis W IV Cont ONLY IMPRESSION: No acute abnormality. Electronically Signed: Campbell Coulter DO at 6:20 EDT ,
[2024-07-29 06:03] VITALS: BP 160/75; PULSE 74; RESP 18; O2SAT 97
[2024-07-29 07:36] VITALS: BP 155/80; PULSE 74; RESP 18; TEMP 36.3; O2SAT 98
== END 2024-07-29 07:40 | disposition home or self-care (01) ==
PROVIDERS: Emergency Provider Emergency Medicine; PCP Nurse Practitioner Family; Visit Provider Emergency Medicine
DX: K29.70 Gastritis, unspecified, without bleeding (principal); K74.60 Unspecified cirrhosis of liver; R42 Dizziness and giddiness; I10 Essential (primary) hypertension; Z86.73 Personal history of transient ischemic attack (TIA), and cerebral infarction without residual deficits
CPT/HCPCS: 74177; 80048; 80076; 83690; 85025; 96361; 96374; 99283; J7030; Q9967; A4216; J3490

== ENCOUNTER 2024-09-02 03:01 | Emergency (ER) | payer MEDICARE, MEDICAID, SELFPAY ==
[2024-09-02 03:06] VITALS: BP 179/106; PULSE 68; RESP 18; TEMP 37; O2SAT 97; BMI 34.9
[2024-09-02 03:59] LABS: Bacteria 0 SEEN /hpf (None Seen); Mucous, Urine 0 SEEN /hpf (<or=2+); White Blood Cells 0 SEEN /hpf (0-5)
[2024-09-02 04:04] LABS: Color, Urine Yellow (Yellow); Glucose, Dipstick Normal (Normal); Ketone-Dipstick Negative (Negative); Leukocyte Esterase-Dipstick Negative /ul (Negative); Nitrite-Dipstick Negative (Negative); Occult Blood-Urine 25 /ul (Negative); Protein-Dipstick Negative (Negative); Specific Gravity, Urine 1.025 (1.002-1.030); Urine Bilirubin Dipstick Negative (Negative); Urine Clarity Sl. Cloudy (Clear); Urine Urobilinogen Normal (Normal)
[2024-09-02 04:13] VITALS: BP 195/106; PULSE 67; RESP 18; TEMP 36.8; O2SAT 98
[2024-09-02 04:18] LABS: Red Blood Cells-Urine 0-5 SEEN /hpf (0-5); Squamous Epithelial Cells - UA 0-5 SEEN /hpf (5-10)
[2024-09-02] MEDS: 0.9% Normal Saline (500mL Bag) 500 ML 999 ML IV (04:34)
[2024-09-02] MEDS: Ketorolac 30 MG/ML Syringe IV (04:35)
[2024-09-02 04:40] VITALS: BP 195/105; PULSE 66; RESP 18; O2SAT 100
--- NOTE | 2024-09-02 04:44 | CT_ITS ---
EXAM: CT Abdomen And Pelvis W/ Contrast Injection HISTORY: RUQ pain TECHNIQUE: Routine protocol CT abdomen pelvis. IV Contrast: IV 100mL Isovue-300 . Oral Contrast: without. Sagittal and coronal images were reconstructed. RADIATION DOSAGE (If Supplied By Facility): CTDIvol = ( 13.62 ) mGy, DLP = ( 731.41 ) mGycm Individualized dose optimization techniques were used for this CT. COMPARISON: CT abdomen pelvis 07/29/2024. LIMITATIONS: None. FINDINGS: LOWER CHEST: Lung bases are clear. LIVER: Lobulated contour. GALLBLADDER/BILE DUCTS: Gallbladder is distended. No calcified gallstones identified. No adjacent inflammatory changes. PANCREAS: Small cyst versus dilated duct in the pancreatic head, unchanged. SPLEEN: Unremarkable. ADRENAL GLANDS: Small left adrenal nodule stable. KIDNEYS / URETERS: Unremarkable. BOWEL / MESENTERY: Unremarkable. No bowel obstruction. APPENDIX: Identified and normal. No evidence of acute appendicitis. PERITONEUM: No free air. No free fluid. VESSELS: Abdominal aorta is normal caliber. RETROPERITONEUM: Unremarkable. REPRODUCTIVE ORGANS: Uterus is not identified. BLADDER: Unremarkable. ABDOMINAL WALL: Unremarkable. BONES: No acute abnormality. OTHER: None. CT/Abdomen/Pelvis W IV Cont ONLY IMPRESSION: Findings consistent with hepatic cirrhosis. No acute findings. Electronically Signed: Tara Desir MD at 6:57 EDT ,
[2024-09-02 04:50] LABS: Absolute Lymphocyte Count 1.52 X10^3/uL (0.83-4.51); Absolute Neutrophil Count 3.1 X10^3/uL (2.0-7.7); Eosinophil# 0.04 X10^3/uL; Eosinophils% 0.8 % (0-5); Hemoglobin 12.3 g/dL (12.0-15.0); Lymphocyte # 1.52 X10^3/ul (0.83-4.51); Lymphocyte % 29.7 % (19-41); Mean Corp Hgb Conc 33.2 g/dL (32-36); Mean Corpuscular Volume 87.3 fL (81-99); Monocyte# 0.47 X10^3/uL; Monocyte% 9.2 % (0-10); NRBC Flagged by Analyzer 0 % (0-5); Neutrophil # 3.07 X10^3/uL (2.7-7.7); Neutrophil % 59.9 % (47-70); Platelet Count 153 K/mm3 (150-450); RBC Distribution Width CV 12.8 % (11.6-14.6); RBC Distribution Width SD 41.1 fl (35.1-43.9); Red Blood Count 4.24 M/mm3 (4.2-5.4); White Blood Count 5.1 K/mm3 (4.4-11.0)
[2024-09-02 04:57] LABS: AST(SGOT) 48 U/L (15-37); Alanine Aminotransfer ALT/SGPT 79 U/L (13-56); Albumin, Serum 3.4 g/dL (3.2-5.0); Alkaline Phosphatase 186 U/L (45-117); Anion Gap 2 (5-15); BUN 16 mg/dL (7-18); BUN/Creat Ratio 19.3 RATIO (10-20); Bilirubin, Direct 0.16 mg/dL (0.00-0.30); Calcium,Total 9.7 mg/dL (8.5-10.1); Chloride 112 mmol/L (98-107); Creatinine, Serum 0.83 mg/dL (0.55-1.02); EST Glomerular Filtration Rate 76 mL/min (>60); Est Glom Filt Rate - Afr Amer 92 mL/min (>60); Estimated Creatinine Clearance 82.15 ml/min; Globulin 4.1 g/dL (2.2-4.2); Glucose 96 mg/dL (74-106); Lipase 203 U/L (13-75); Potassium 4.2 mmol/L (3.5-5.1); Protein, Total 7.5 g/dL (6.4-8.2); Sodium Level 141 mmol/L (136-145)
[2024-09-02 07:00] VITALS: BP 163/101; PULSE 71; RESP 20; O2SAT 99
[2024-09-02 07:19] VITALS: BP 161/101; PULSE 71; RESP 18; TEMP 36.8; O2SAT 97
--- NOTE | 2024-09-02 07:20 | EX.ED.DYSGE1 ---
HPI History of Present Illness Chief Complaint: Abd Pain Informant: patient and family Narrative Narrative: Patient is a 53-year-old female with past medical history of hypertension depression and cirrhosis. She reports that she ate hamburger helper for dinner this evening and was doing well but then around 10 PM developed right upper quadrant/right flank pain with bouts of nausea and vomiting. She states that she took [id number] medication without any symptom improvement. She states she has concern this could be potentially her liver or gallbladder based on her recurrent symptoms and therefore comes in for evaluation. She states there was no trauma or excessive activity prior to the pain beginning. 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 Wears glasses Anxiety Alcohol use Depression Arthritis Easy bruising Back pain TIA (transient ischemic attack) Vertigo Gastric reflux Non-smoker Shortness of breath on exertion Leg cramps Hypertension Right cervical radiculopathy Carotid artery stenosis Liver cirrhosis Migraine Asthma Seasonal allergies Home Medications ?Medication ?Instructions ?Recorded ?Last Taken ?Type albuterol sulfate 90 mcg/actuation 2 puff inhalation Q6H PRN 10/02/22 Unknown History aerosol inhaler shortness of breath or wheezing aspirin 81 mg chewable tablet 81 mg PO DAILY 10/02/22 Unknown History atorvastatin 40 mg tablet 40 mg PO QHS 10/02/22 Unknown History desloratadine 5 mg tablet 5 mg PO DAILY 10/02/22 Unknown History escitalopram oxalate 10 mg tablet 10 mg PO DAILY #30 tabs 10/02/22 Unknown Rx lisinopril 5 mg tablet 5 mg PO DAILY 10/02/22 Unknown History vitamin E (dl, acetate) 45 mg (100 45 mg PO DAILY 10/02/22 Unknown History unit) capsule vitamins A,C,[id number] 4,296 1 cap PO BID 10/02/22 Unknown History mcg-226 mg-90 mg capsule (ICaps AREDS) rizatriptan 10 mg tablet 10 mg PO ONCE #10 tabs 11/27/22 Unknown Rx pantoprazole 40 mg tablet,delayed 40 mg PO DAILY #30 tabs 10/22/23 Unknown Rx release spironolactone 25 mg tablet 25 mg PO DAILY #30 tabs 05/26/24 Unknown Rx hydrocortisone 2.5 % topical cream 1 applic NC QD-BID PRN hemorrhoids 07/07/24 Unknown Rx with perineal applicator #30 grams hydrocortisone acetate 25 mg 25 mg NC QHS #24 ea 07/07/24 Unknown Rx rectal suppository dicyclomine 20 mg tablet 20 mg PO TID #90 tabs 07/24/24 Unknown Rx diazepam 5 mg tablet (Valium) 5 mg PO TID PRN vertigo 5 days #15 07/29/24 Unknown Rx tabs pantoprazole 40 mg tablet,delayed 40 mg PO DAILY 30 days #30 tabs 07/30/24 Unknown Rx release Allergy/AdvReac Type Severity Reaction Status Date / Time No Known Allergies Allergy Verified 12/21/23 06:27 Family History Mother Dementia Father Heart disease Hypertension Other Asthma Depression Surgical History History of ankle surgery H/O hernia repair Social History household members: other details: fdc current occupational status: unemployed Smoking Status: Never smoker Electronic Cigarette Use: not used alcohol intake: current alcohol intake frequency: holidays/special occasions only Alcohol type: wine substance use type: does not use and marijuana what type of physical activity do you participate in: none do you feel safe at home: Yes ROS ROS ED Constitutional Constitutional ED: Denies chills or fever(s) Eyes Eyes: Denies blurry vision or change in vision ENT ENT ED: Denies sore throat Cardiovascular Cardiovascular: Denies chest pain Respiratory/Chest Respiratory/Chest: Denies cough or dyspnea Gastrointestinal Gastrointestinal: Reports abdominal pain, nausea and vomiting; Denies diarrhea Genitourinary Genitourinary ED: Denies dysuria or hematuria Musculoskeletal Musculoskeletal: Reports back pain Integumentary Denies rash Neurologic Neurologic: Denies headache(s) Hematologic/Lymphatic Hematologic/Lymphatic: Denies easy bleeding or easy bruising EXAM Physical Exam Const Vital Signs: 09/02/24 03:06 09/02/24 04:13 09/02/24 04:40 Temperature 98.6 F 98.3 F Temperature Source Oral Oral Pulse Rate 68 67 66 Respiratory Rate 18 18 18 Blood Pressure 179/106 H 195/106 H 195/105 H Blood Pressure Mean 130 135 135 Pulse Ox 97 98 100 Oxygen Delivery Method Room Air Room Air 09/02/24 07:00 09/02/24 07:19 Temperature 98.3 F Temperature Source Pulse Rate 71 71 Respiratory Rate 20 H 18 Blood Pressure 163/101 H 161/101 H Blood Pressure Mean 121 121 Pulse Ox 99 97 Oxygen Delivery Method Room Air Positive well nourished and well developed General Appearance ED: well developed HEENT HEENT Narrative: No signs of infection noted in the posterior pharynx No tongue or lip swelling no oral lesions no airway edema or compromise Eyes PERRL and EOMs intact bilaterally General Eye ED: Negative for scleral icterus Neck supple Resp normal respiratory effort and clear to auscultation bilaterally Cardio regular rate and regular rhythm Rate: other Other Details: Radial and carotid pulses are equal and symmetric GI non-distended and no masses GI Narrative: Abdomen is soft and nondistended with normal active bowel sounds. There is pain on palpation in the right upper quadrant without voluntary guarding or rigidity. Negative Small sign noted. No pulsatile mass Auscultation: normoactive bowel sounds Palpation: soft Back/Spine Back/Spine Narrative: Positive right CVA pain present Extremity normal to inspection Neuro oriented x3, CN's II-XII intact bilaterally and no sensory deficits noted Sensorium / Orientation: alert Motor Exam: strength 5/5 throughout Psych mental status grossly normal Skin no rashes or lesions noted Skin Narrative: No overlying soft tissue changes to suggest trauma or infection General Skin Exam: Negative for jaundice MDM MDM MDM Narrative Medical decision making narrative: Patient presented to the ER hypertensive but has a past medical history of this. She reported pain associate with nausea and vomiting in the right upper quadrant and right flank region. She did report eating a greasy meal and her hamburger helper a few hours prior to the pain beginning. Differential diagnosis is for biliary colic versus acute cholecystitis versus pancreatitis versus kidney stone versus UTI or pyelonephritis. Secondary to this I did elect to perform basic laboratory studies with UA and CT scan with IV contrast. Labs showed elevation to her liver enzymes and her lipase but chart review reveals this is at her baseline consistent with her history of cirrhosis/elevated LFTs. The CT scan did not show any type of infection or stone around the gallbladder inflammation to the pancreas and there was no obvious kidney stone noted. Urine sample also showed no sign of infection or blood going against a UTI/pyelonephritis or kidney stone. On reevaluation the patient is resting comfortably and she has had resolution of her pain. I do feel this is most likely a biliary colic event that has since resolved upon arrival but without signs of acute infection or persistent pain there is no need for admission and she is otherwise safe for discharge with outpatient follow-up History & Record Review Discussion w/independent historian: Patient and Family Lab Data Attestation: I reviewed the patient's lab results. Labs: Laboratory Results - last 24 hr 09/02/24 09/02/24 09/02/24 03:47 04:15 04:15 WBC Cancelled Corrected WBC Cancelled RBC Cancelled Hgb Cancelled Hct Cancelled MCV Cancelled MCH Cancelled MCHC Cancelled RDW Std Deviation Cancelled RDW Coeff of Malathi Cancelled Plt Count Cancelled MPV Cancelled Immature Gran % (Auto) Cancelled Neut % (Auto) Cancelled Lymph % (Auto) Cancelled [place] % (Auto) Cancelled Eos % (Auto) Cancelled Baso % (Auto) Cancelled Absolute Neuts (auto) Cancelled Absolute Lymphs (auto) Cancelled Total Counted Cancelled Neutrophils % (Manual) Cancelled Band Neutrophils % Cancelled Lymphocytes % (Manual) Cancelled Monocytes % (Manual) Cancelled Eosinophils % (Manual) Cancelled Basophils % (Manual) Cancelled Metamyelocytes % Cancelled Myelocytes % Cancelled Promyelocytes % Cancelled Blast Cells % Cancelled Plasma Cell % (Manual) Cancelled Other Cells % Cancelled Nucleated RBC % Cancelled Nucleated RBCs/100 WBC Cancelled Differential Comment Cancelled Diff Path Review Cancelled Hypersegmented Neuts Cancelled Atypical Lymphocytes Cancelled Reactive Lymphocytes Cancelled Smudge Cells Cancelled Toxic Granulation Cancelled Toxic Vacuolation Cancelled Dohle Bodies Cancelled Rosa Maria Rods Cancelled Platelet Estimate Cancelled Plt Morphology Comment Cancelled RBC Morphology Cancelled Cancelled Polychromasia Cancelled Hypochromasia Cancelled Basophilic Stippling Cancelled Anisocytosis Cancelled Microcytosis Cancelled Macrocytosis Cancelled Spherocytes Cancelled Sickle Cells Cancelled Target Cells Cancelled Tear Drop Cells Cancelled Ovalocytes Cancelled Stomatocytes Cancelled [place] Bodies Cancelled Jasbir Cells Cancelled Bite Cells Cancelled Crenated Cell Cancelled Acanthocytes (Spur) Cancelled Rouleaux Cancelled Schistocytes Cancelled Sodium 141 Potassium 4.2 Chloride 112 H Carbon Dioxide 27.0 Anion Gap 2 L BUN 16 Creatinine 0.83 Estim Creat Clear Calc 82.15 Est GFR (MDRD) Af Amer 92 Est GFR (MDRD) Non-Af 76 BUN/Creatinine Ratio 19.3 Glucose 96 Calcium 9.7 Total Bilirubin 0.60 Direct Bilirubin 0.16 AST 48 H ALT 79 H Alkaline Phosphatase 186 H Total Protein 7.5 Albumin 3.4 Globulin 4.1 Lipase 203 H Urine Color Yellow Urine Clarity Sl. Cloudy Urine pH 6.0 Ur Specific Balsam 1.025 Urine Protein Negative Urine Glucose (UA) Normal Urine Ketones Negative Urine Occult Blood 25 H Urine Nitrite Negative Urine Bilirubin Negative Urine Urobilinogen Normal Ur Leukocyte Esterase Negative Urine RBC 0-5 SEEN Urine WBC 0 SEEN Ur Squamous Epith Cells 0-5 SEEN Urine Bacteria 0 SEEN Urine Mucus 0 SEEN 09/02/24 04:45 WBC 5.1 Corrected WBC RBC 4.24 Hgb 12.3 Hct 37.0 MCV 87.3 MCH 29.0 MCHC 33.2 RDW Std Deviation 41.1 RDW Coeff of Malathi 12.8 Plt Count 153 MPV 10.0 Immature Gran % (Auto) 0.400 Neut % (Auto) 59.9 Lymph % (Auto) 29.7 [place] % (Auto) 9.2 Eos % (Auto) 0.8 Baso % (Auto) 0.0 Absolute Neuts (auto) 3.1 Absolute Lymphs (auto) 1.52 Total Counted Neutrophils % (Manual) Band Neutrophils % Lymphocytes % (Manual) Monocytes % (Manual) Eosinophils % (Manual) Basophils % (Manual) Metamyelocytes % Myelocytes % Promyelocytes % Blast Cells % Plasma Cell % (Manual) Other Cells % Nucleated RBC % 0 Nucleated RBCs/100 WBC Differential Comment Diff Path Review Hypersegmented Neuts Atypical Lymphocytes Reactive Lymphocytes Smudge Cells Toxic Granulation Toxic Vacuolation Dohle Bodies Rosa Maria Rods Platelet Estimate Plt Morphology Comment RBC Morphology Polychromasia Hypochromasia Basophilic Stippling Anisocytosis Microcytosis Macrocytosis Spherocytes Sickle Cells Target Cells Tear Drop Cells Ovalocytes Stomatocytes [place] Bodies Jasbir Cells Bite Cells Crenated Cell Acanthocytes (Spur) Rouleaux Schistocytes Sodium Potassium Chloride Carbon Dioxide Anion Gap BUN Creatinine Estim Creat Clear Calc Est GFR (MDRD) Af Amer Est GFR (MDRD) Non-Af BUN/Creatinine Ratio Glucose Calcium Total Bilirubin Direct Bilirubin AST ALT Alkaline Phosphatase Total Protein Albumin Globulin Lipase Urine Color Urine Clarity Urine pH Ur Specific [place] Urine Protein Urine Glucose (UA) Urine Ketones Urine Occult Blood Urine Nitrite Urine Bilirubin Urine Urobilinogen Ur Leukocyte Esterase Urine RBC Urine WBC Ur Squamous Epith Cells Urine Bacteria Urine Mucus Radiography Diagnostic Testing: Clinical Impression(s) from Imaging Studies Abdomen/Pelvis CT 09/02/24 04:44 IMPRESSION: Findings consistent with hepatic cirrhosis. No acute findings. Electronically Signed: Tara Desir MD at 6:57 EDT , Discharge Plan Triage Chief Complaint: Abd Pain ED Provider: John Pang Dx/Rx/DC Orders Clinical Impression: Right upper quadrant abdominal pain, Liver cirrhosis, Essential hypertension Instructions: ED Abdominal Pain Gallstone Poss Prescriptions: No Action aspirin 81 mg tablet,chewable 81 mg PO DAILY lisinopril 5 mg tablet 5 mg PO DAILY atorvastatin 40 mg tablet 40 mg PO QHS vitamin E (dl, acetate) 45 mg (100 unit) capsule 45 mg PO DAILY desloratadine 5 mg tablet 5 mg PO DAILY ICaps AREDS [id number] capsule 1 cap PO BID albuterol sulfate 90 mcg/actuation HFA aerosol inhaler 2 puff inhalation Q6H PRN (Reason: shortness of breath or wheezing) escitalopram oxalate 10 mg tablet 10 mg PO DAILY Qty: 30 5RF rizatriptan 10 mg tablet 10 mg PO ONCE Qty: 10 0RF Rx Instructions: as a single dose pantoprazole 40 mg tablet,delayed release (DR/EC) 40 mg PO DAILY Qty: 30 2RF Rx Instructions: Take 1 tablet before breakfast. hydrocortisone acetate 25 mg suppository 25 mg NC QHS Qty: 24 0RF hydrocortisone 2.5 % cream with perineal applicator 1 applic NC QD-BID PRN (Reason: hemorrhoids) Qty: 30 1RF diazepam [Valium] 5 mg tablet 5 mg PO TID PRN (Reason: vertigo) 5 Days Qty: 15 0RF spironolactone 25 mg tablet 25 mg PO DAILY Qty: 30 2RF Rx Instructions: Start from 11/04/2023. Hold if serum potassium is more than 5.0. dicyclomine 20 mg tablet 20 mg PO TID Qty: 90 0RF Rx Instructions: take 30 min before meals pantoprazole 40 mg tablet,delayed release (DR/EC) 40 mg PO DAILY 30 Days Qty: 30 2RF Primary Care Provider: Jeanna Clark Referrals: Kathy Hough MD [Med Staff - Active Staff] - Jeanna Clark [facility] [Primary Care Provider] - Activity Restrictions/Additional Instructions: Please follow-up with general surgery for repeat evaluation as your abdominal pain may be due to gallstones or poor gallbladder function. You may need to discuss a outpatient gallbladder ultrasound and/or HIDA scan. Please avoid greasy fatty foods and eat a smaller portion meal that is bland in nature to prevent reoccurrence of symptoms. Your CT scan did not show any sign of intestinal infection or kidney stone and your urine shows no sign of infection either. If you have worsening of symptoms or any further concerns please return to the ER for repeat evaluation Print Language: Sudanese Sign Language Disposition Disposition: Home, Self Care Discharge Date/Time: 09/02/24 07:26
== END 2024-09-02 07:26 | disposition home or self-care (01) ==
PROVIDERS: Emergency Provider Emergency Medicine; PCP Nurse Practitioner Family; Visit Provider Emergency Medicine
DX: K74.60 Unspecified cirrhosis of liver (principal); I10 Essential (primary) hypertension; Z86.73 Personal history of transient ischemic attack (TIA), and cerebral infarction without residual deficits
CPT/HCPCS: 74177; 80048; 80076; 81001; 83690; 85025; 96361; 96374; 96376; 99283; Q9967; A4216